=== PATIENT | female | born 1930 | race Caucasian/White ===

== ENCOUNTER 2017-07-09 20:50 | Inpatient (IN) | payer OTHER ==
[~2017-07-09] VITALS: Ht 154.9 cm; Wt 54.9 kg
--- NOTE | 2017-07-09 20:55 | NUR ---
PT BIBRA FROM SNF TO ER BED 13. PER REPORT, INTERMITTENT EPISTAXIS X 5 DAYS NOW. DRIED BLOOD TO L NARES NOTED W/ NO ACTIVE BLEEDING NOTED. GOWNED AND PLACED ON MONITOR. STABLE VITALS. AWAITING MD JOHNSON.
--- NOTE | 2017-07-09 21:04 | NUR ---
DR PARIS AT BEDSIDE FOR EVAL.
--- NOTE | 2017-07-09 21:10 | NUR ---
IV LINE STARTED BLOOD DRAWN AND SENT TO LAB.
[2017-07-09 21:25] LABS: BASOPHILS # (AUTO) 0.1 /CMM (0.0-0.2); EOSINOPHILS # (AUTO) 0.2 /CMM (0.0-0.7); EOSINOPHILS % (AUTO) 2.8 % (0.0-6.0); HEMATOCRIT 32 % (33-45); HEMOGLOBIN 10.8 g/dL (11.5-14.8); LYMPHOCYTES # (AUTO) 3.6 /CMM (0.8-4.8); LYMPHOCYTES % (AUTO) 42.6 % (20.0-44.0); MEAN CORPUSCULAR HEMOGLOBIN 28 PG (26.0-33.0); MEAN CORPUSCULAR HGB CONC 34 g/dl (31.0-36.0); MEAN CORPUSCULAR VOLUME 82 fL (82-100); MONOCYTES # (AUTO) 0.8 /CMM (0.1-1.30); MONOCYTES % (AUTO) 9.6 % (2.0-12.0); NEUTROPHILS # (AUTO) 3.8 /CMM (1.8-8.9); PLATELET COUNT (AUTO) 270 /CMM (150-450); RDW COEFFICIENT OF VARIATION 14.1 (11.5-15.0); WHITE BLOOD COUNT (AUTO) 8.4 K/uL (4.3-11.0)
[2017-07-09] MEDS ORDERED: PHENYLEPHRINE 0.5% NASAL SPRAY 15 ML BOTTLE NS ONE (21:25)
[2017-07-09] MEDS ORDERED: PHENYLEPHRINE HCL NASAL SPRAY 15 ML BOTTLE NS ONE (21:30)
[2017-07-09 21:33] LABS: CALCIUM, SERUM 8.8 mg/dL (8.5-10.1); CARBON DIOXIDE 27 mmol/L (21-32); CHLORIDE 104 mmol/L (98-107); CREATININE 0.8 mg/dL (0.6-1.3); GLUCOSE 97 mg/dL (74-106); POTASSIUM 4.4 mmol/L (3.5-5.1); SODIUM SERUM 138 mmol/L (136-145); UREA NITROGEN, BLOOD 41 mg/dL (7-18)
[2017-07-09 21:34] LABS: INR 0.95 (0.85-1.15)
[2017-07-09] MEDS ORDERED: LEVO112T7 PO (22:24)
[2017-07-09] MEDS ORDERED: ASPI-1169 PO (22:24)
[2017-07-09] MEDS ORDERED: MEMA5TAB PO (22:24)
[2017-07-09] MEDS ORDERED: CALC-261 PO (22:24)
[2017-07-09] MEDS ORDERED: DIVA125C PO (22:24)
[2017-07-09] MEDS ORDERED: AMIO200T2 PO (22:24)
[2017-07-09] MEDS ORDERED: MAGNESIUM HYDROXIDE 30 ML UDC PO PRN (22:30)
[2017-07-09] MEDS ORDERED: MAG HYDROX/AL HYDROX/SIMETH 30 ML UDC PO PRN (22:30)
[2017-07-09] MEDS ORDERED: ACETAMINOPHEN 325 MG TABLET PO PRN (22:30)
[2017-07-09] MEDS ORDERED: HYDROCODONE/APAP 5/325MG 1 EACH TABLET PO PRN (22:30)
[2017-07-09] MEDS ORDERED: ONDANSETRON HCL/PF 4 MG/2 ML VIAL IVP PRN (22:30)
--- NOTE | 2017-07-09 22:32 | NUR ---
REPORT GIVEN TO MIKA. PT AWAITING TRANSFER TO FLOOR.
[2017-07-09 22:50] VITALS: BP 150/65
[2017-07-09 23:00] VITALS: BP 150/65
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
[2017-07-10 06:57] LABS: CALCIUM, SERUM 8.3 mg/dL (8.5-10.1); CARBON DIOXIDE 26 mmol/L (21-32); CHLORIDE 107 mmol/L (98-107); CREATININE 0.7 mg/dL (0.6-1.3); GLUCOSE 91 mg/dL (74-106); MAGNESIUM 2.1 mg/dL (1.8-2.4); PHOSPHORUS 4.1 mg/dL (2.5-4.9); POTASSIUM 4.8 mmol/L (3.5-5.1); SODIUM SERUM 140 mmol/L (136-145); UREA NITROGEN, BLOOD 42 mg/dL (7-18)
[2017-07-10 06:59] LABS: BASOPHILS % (AUTO) 0.3 % (0.0-2.0); EOSINOPHILS # (AUTO) 0.4 /CMM (0.0-0.7); EOSINOPHILS % (AUTO) 4.8 % (0.0-6.0); HEMATOCRIT 29 % (33-45); HEMOGLOBIN 9.6 g/dL (11.5-14.8); LYMPHOCYTES # (AUTO) 3.4 /CMM (0.8-4.8); LYMPHOCYTES % (AUTO) 45.4 % (20.0-44.0); MEAN CORPUSCULAR HEMOGLOBIN 28 PG (26.0-33.0); MEAN CORPUSCULAR HGB CONC 33 g/dl (31.0-36.0); MEAN CORPUSCULAR VOLUME 85 fL (82-100); MONOCYTES # (AUTO) 0.7 /CMM (0.1-1.30); NEUTROPHILS % (AUTO) 40.5 % (43.0-81.0); RDW COEFFICIENT OF VARIATION 15.2 (11.5-15.0); RED BLOOD CELL COUNT(AUTO) 3.45 MIL/uL (4.0-5.2); WHITE BLOOD COUNT (AUTO) 7.5 K/uL (4.3-11.0)
[2017-07-10 07:06] LABS: CHOLESTEROL 109 mg/dL (<200); HDL CHOLESTEROL 45 mg/dL (40-60); LDL 53 mg/dL (0-99); THYROID STIMULATING HORMONE 10.848 uIU/mL (0.358-3.74); TRIGLYCERIDES 79 mg/dL (30-150)
--- NOTE | 2017-07-10 07:34 | NUR ---
MS VICE PRESIDENT INTEGRATED CLOSING NOTES PT SLEPT WELL AND STABLE SIMA THE NIGHT , NO SIGNS OF ANY BLEEDING NOTED. RESPIRATION EVEN AND NON-LABORED. KEPT HER WARM AND COMFORTABLE AT ALL TIMES. BED ALARM SET FOR SAFETY. PLACE CALL LIGHT AT REACH. ENDORSE TO AM NURSE FOR CONTINUITY OF CARE.
--- NOTE | 2017-07-10 07:36 | NUR ---
MS RN: INITIAL NOTE RECEIVED PT A/OX2-3. MACANESE SPEAKING ONLY. MS. INCONTINENT. USES DIAPER. SKIN INTACT. BEDREST. ON CARDIAC DIET. IV ON R #20 HL. SITE CLEAR AND PATENT. NO IV FLUIDS RUNNING. NO DISTRESS NOTED. NO SOB NOTED. NO PAIN NOTED. RESTING COMFORTABLY IN BED. CALL LIGHT WITHIN REACH.
[2017-07-10 08:00] VITALS: BP 120/54
[2017-07-10] MEDS: DIVALPROEX SODIUM 125 MG CAP.SPRINK PO SCH ×2 (08:22→16:45)
[2017-07-10] MEDS: LEVOTHYROXINE SODIUM 112 MCG TABLET PO SCH (08:22)
[2017-07-10] MEDS: MEMANTINE HCL 5 MG TABLET PO SCH (08:23)
[2017-07-10] MEDS: AMIODARONE HCL 200 MG TABLET PO SCH (08:23)
[2017-07-10 08:46] LABS: PLATELET COUNT (AUTO) 235 /CMM (150-450)
[2017-07-10 16:00] VITALS: BP 112/47
[2017-07-10 18:02] VITALS: BP 112/47
--- NOTE | 2017-07-10 18:12 | NUR ---
MS RN: CLOSING NOTE PT TOOK ALL MEDICATIONS ON TIME. NO ADVERSE REACTIONS NOTED. NO SOB NOTED. NO PAIN NOTED. NO DISTRESS NOTED. A/OX2-3. BHUTANESE SPEAKING. MS. NOSE BLEED ONE TIME. VERY MINIMUM. NO MORE BLEEDING OCCURRED THROUGH OUT THE DAY. INCONTINENT. USES DIAPER. SKIN INTACT. BEDREST. NOT ABLE TO AMBULATE DUE TO WEAKNESS. NEEDS FEEDER. R HAND #22 HL. SITE CLEAR AND PATENT. BED ALARM ON. RESTING COMFORTABLY IN BED. CALL LIGHT WITHIN REACH.
--- NOTE | 2017-07-10 19:20 | NUR ---
MS RN OPENING NOTE RECEIVED PATIENT IN BED RESTING COMFORTABLY, ALERT ORIENTED X 2. ON ROOM AIR. NO APPARENT SIGNS OF DISTRESS OR DISCOMFORT. RESPIRATIONS EVEN AND UNLABORED, DENIES PAIN AND SOB. RIGHT HAND HL 20G, FLASHED WITH SALINE, PATENT AND INTACT. PATIENT IS INCONTINENTS, USES DIAPER, KEPT CLEAN AND COMFORTABLE. PATIENT IS ON BED REST, SAFETY MEASURES IN PLACE; BED IN LOW LOCKED POSITION, SIDE RAILS UP X2, CALL LIGHT WITHIN EASY REACH. WILL CONTINUE TO MONITOR.
[2017-07-10 20:00] VITALS: BP 123/52
[2017-07-11 07:34] LABS: CALCIUM, SERUM 8.5 mg/dL (8.5-10.1); CARBON DIOXIDE 26 mmol/L (21-32); CHLORIDE 107 mmol/L (98-107); CREATININE 0.7 mg/dL (0.6-1.3); GLUCOSE 95 mg/dL (74-106); MAGNESIUM 2.2 mg/dL (1.8-2.4); PHOSPHORUS 4.1 mg/dL (2.5-4.9); POTASSIUM 4.5 mmol/L (3.5-5.1); SODIUM SERUM 140 mmol/L (136-145); UREA NITROGEN, BLOOD 29 mg/dL (7-18)
[2017-07-11 07:35] LABS: BASOPHILS % (AUTO) 0.6 % (0.0-2.0); EOSINOPHILS # (AUTO) 0.3 /CMM (0.0-0.7); EOSINOPHILS % (AUTO) 3.3 % (0.0-6.0); HEMATOCRIT 26 % (33-45); HEMOGLOBIN 8.7 g/dL (11.5-14.8); LYMPHOCYTES % (AUTO) 37.5 % (20.0-44.0); MEAN CORPUSCULAR HEMOGLOBIN 30 PG (26.0-33.0); MEAN CORPUSCULAR HGB CONC 34 g/dl (31.0-36.0); MEAN CORPUSCULAR VOLUME 88 fL (82-100); MONOCYTES # (AUTO) 0.9 /CMM (0.1-1.30); MONOCYTES % (AUTO) 11.1 % (2.0-12.0); NEUTROPHILS # (AUTO) 3.8 /CMM (1.8-8.9); NEUTROPHILS % (AUTO) 47.5 % (43.0-81.0); PLATELET COUNT (AUTO) 221 /CMM (150-450); RDW COEFFICIENT OF VARIATION 15.6 (11.5-15.0); WHITE BLOOD COUNT (AUTO) 8.1 K/uL (4.3-11.0)
--- NOTE | 2017-07-11 07:40 | NUR ---
RN NOTES: PATIENT RESTING IN BED. NONLABORED BREATHING NOTED ON ROOM AIR. PATIENT AOX1-2 WITH PERIODS OF CONFUSION. DENIES PAIN. NO FACIAL GRIMACING NOTED. NO NOSE BLEEDING. DENIES HEADACHE. IV SITE ON RIGHT HAND PATENT AND INTACT. BED IN LOWEST LOCKED POSITION. CALL LIGHT WITHIN REACH. WILL CONTINUE TO MONITOR
--- NOTE | 2017-07-11 07:44 | NUR ---
MS RN CLOSING NOTE PATIENT IN BED RESTING COMFORTABLY, ALERT ORIENTED X 2. ON ROOM AIR. NO APPARENT SIGNS OF DISTRESS OR DISCOMFORT. RESPIRATIONS EVEN AND UNLABORED, DENIES PAIN AND SOB. NO EPISODES OF EPISTAXIS DURING THE NIGHT. RIGHT HAND HL 20G, FLASHED WITH SALINE, PATENT AND INTACT. PATIENT IS INCONTINENTS, USES DIAPER, KEPT CLEAN AND COMFORTABLE. PATIENT IS ON BED REST, SAFETY MEASURES IN PLACE; BED IN LOW LOCKED POSITION, SIDE RAILS UP X2, CALL LIGHT WITHIN EASY REACH. WILL ENDORSE TO AM NURSE FOR CONTINUATION OF CARE.
[2017-07-11 08:00] VITALS: BP 108/50
[2017-07-11] MEDS: LEVOTHYROXINE SODIUM 112 MCG TABLET PO SCH (08:25)
[2017-07-11] MEDS: MEMANTINE HCL 5 MG TABLET PO SCH (08:26)
[2017-07-11] MEDS: DIVALPROEX SODIUM 125 MG CAP.SPRINK PO SCH (08:26)
[2017-07-11 08:28] VITALS: BP 108/50
[2017-07-11] MEDS: AMIODARONE HCL 200 MG TABLET PO SCH (08:28)
--- NOTE | 2017-07-11 13:20 | NUR ---
RN NOTES: PATIENT DISCHARGED TO [facility]. SPOKE TO SHABBIR ROMO [facility]. PATIENT EDUCATED ON EXISTCARE INSTUCTIONS, REINFORCEMENT NEEDED. SPOKE TO MANDO AND DAUGHTER, JONATHAN. AWARE THAT PATIENT TO BE DISCHARGED TO [facility] TODAY. PATIENT STABLE. NO SIGNS OF BLEEDING DURING SHIFT, NO SEIZURES NOTED. IV LINE REMOVED. ALL VALUABLES GIVEN TO PATIENT. VS WNL. PATIENT LEFT WITH AMBULANCE STABLE.
== END 2017-07-11 13:30 | DRG 115 ==
LOC: ER 20:53 → MED 22:35
DX: R04.0 Epistaxis (principal); D68.59 Other primary thrombophilia; F03.90 Unspecified dementia, unspecified severity, without behavioral disturbance, psychotic disturbance, mood disturbance, and anxiety; Z79.82 Long term (current) use of aspirin; D64.9 Anemia, unspecified; I48.91 Unspecified atrial fibrillation; R79.89 Other specified abnormal findings of blood chemistry; K81.9 Cholecystitis, unspecified
CPT/HCPCS: 36415; 80048-TC; 80061-TC; 83735-TC; 84100-TC; 84443-TC; 85025-TC; 85730-TC; 86850-TC; 87081-TC; A4606; J7030; J7040; Z7610

== ENCOUNTER 2018-05-05 10:54 | Inpatient (IN) | payer OTHER ==
[~2018-05-05] VITALS: Ht 152.4 cm; Wt 59.0 kg
[~2018-05-05 10:54] MED LIST: AMIO200T4 PO; ASPI-1169 PO; CALC-261 PO; DIVA125C2 PO; LEVO112T7 PO; MEMA5TAB PO
--- NOTE | 2018-05-05 10:54 | NUR ---
PT BIB PRIVATE AMBULANCE FROM [facility] C/O FOR CONGESTION AND INCREASED WBC. AAOX0, RESPIRATIONS EVEN AND UNLABORED, NAD, PT ON MONITOR, PENDING MD JOHNSON
[2018-05-05 11:26] LABS: BASOPHILS % (AUTO) 0.3 % (0.0-2.0); EOSINOPHILS % (AUTO) 0.1 % (0.0-6.0); HEMATOCRIT 29 % (33-45); HEMOGLOBIN 9.3 g/dL (11.5-14.8); LYMPHOCYTES # (AUTO) 1.3 /CMM (0.8-4.8); LYMPHOCYTES % (AUTO) 11.7 % (20.0-44.0); MEAN CORPUSCULAR HGB CONC 32 g/dl (31.0-36.0); MEAN CORPUSCULAR VOLUME 85 fL (82-100); MONOCYTES # (AUTO) 1.8 /CMM (0.1-1.30); MONOCYTES % (AUTO) 15.7 % (2.0-12.0); NEUTROPHILS # (AUTO) 8.1 /CMM (1.8-8.9); NEUTROPHILS % (AUTO) 72.2 % (43.0-81.0); PLATELET COUNT (AUTO) 419 /CMM (150-450); RED BLOOD CELL COUNT(AUTO) 3.43 MIL/uL (4.0-5.2); WHITE BLOOD COUNT (AUTO) 11.2 K/uL (4.3-11.0)
--- NOTE | 2018-05-05 11:27 | NUR ---
RT AT BEDSIDE FOR BREATHING TX
[2018-05-05] MEDS ORDERED: ALBUTEROL FS 2.5 MG/3 ML VIAL.NEB CONTNEB ONE (11:30)
--- NOTE | 2018-05-05 11:30 | NUR ---
BLOOD COLLECTED AND SENT TO LAB, NO URINE ORDER AT THIS TIME
[2018-05-05 11:48] LABS: ALANINE AMINOTRANSFERASE 22 U/L (12-78); ALBUMIN 1.7 g/dL (3.4-5.0); ALKALINE PHOSPHATASE 71 U/L (46-116); ASPARTATE AMINOTRANSFERASE 32 U/L (15-37); B-TYPE NATRIURETIC PEPTIDE 2742 PG/ML (0-125); BILIRUBIN,DIRECT 0.3 mg/dL (0.0-0.2); BILIRUBIN,TOTAL 0.5 mg/dL (0.2-1.0); CARBON DIOXIDE 27 mmol/L (21-32); CHLORIDE 114 mmol/L (98-107); CREATININE 0.8 mg/dL (0.6-1.3); GLUCOSE 214 mg/dL (74-106); POTASSIUM 3.6 mmol/L (3.5-5.1); SODIUM SERUM 149 mmol/L (136-145); UREA NITROGEN, BLOOD 27 mg/dL (7-18)
[2018-05-05 11:50] LABS: LYMPHOCYTES % (MANUAL) 10 % (16-48); MONOCYTES % (MANUAL) 11 % (0-11.0); NEUTROPHILS % (MANUAL) 79 (42-76)
[2018-05-05 12:00] VITALS: BP 123/60
[2018-05-05] MEDS ORDERED: ALBUTEROL FS 2.5 MG/3 ML VIAL.NEB ONE (12:00)
[2018-05-05] MEDS ORDERED: IPRA3AMP22 IH (12:09)
[2018-05-05] MEDS ORDERED: DONE10TA44 PO (12:09)
[2018-05-05] MEDS ORDERED: DEXT15DR6 EACHEYE (12:09)
[2018-05-05] MEDS ORDERED: MEMA10TA PO (12:09)
[2018-05-05] MEDS ORDERED: CRAN450C PO (12:09)
[2018-05-05] MEDS ORDERED: ACET325T53 PO (12:09)
[2018-05-05] MEDS ORDERED: OMEG1CAP18 PO (12:09)
[2018-05-05] MEDS ORDERED: MAG30ORA PO (12:09)
[2018-05-05] MEDS ORDERED: FERR325T23 PO (12:09)
--- NOTE | 2018-05-05 12:25 | NUR ---
CALLED [employer] STATIONARY ENGINEER APPRENTICE WAS PAGED.
--- NOTE | 2018-05-05 12:34 | NUR ---
REPORT GIVEN TO SHABBIR MTZ FOR FERMIN
--- NOTE | 2018-05-05 12:50 | NUR ---
RN NOTES PATIENT RECEIVED FROM ER DEPT, OPENS EYES, NON-VERBAL AT THIS TIME, CURRENTLY ON 4LPM VIA SIMPLE MASK, PATIENT NOTED WITH MILD SHORTNESS OF BREATH, KEPT COMFORTABLE, HEAD OF BED ELEVATED, NEEDS ATTENDED, CALL LIGHT WITHIN REACH, WILL CONTINUE TO MONITOR.
--- NOTE | 2018-05-05 12:56 | NUR ---
TRANSFERRED TO ROOM 310-1 VIA ACLS PROTOCOL.
[2018-05-05] MEDS ORDERED: Medication Not On Formulary EA (Ipratropium/Albuterol Sulfate (Ipratr-Albuterol 0.5-3 Mg IH PRN (13:30)
[2018-05-05] MEDS ORDERED: MAG HYDROX/AL HYDROX/SIMETH 30 ML UDC PO PRN ×2 (13:30→14:00)
--- NOTE | 2018-05-05 13:45 | NUR ---
RN NOTES SKIN ASSESSMENT COMPLETED, NOTED WITH OPEN SACRAL WOUND, PHOTO TAKEN AND PLACED IN CHART. APPLIED MEPILEX. PATIENT CURRENTLY ON O2 AT 5LPM VIA MASK, SPO2 92%, HOB ELEVATED. NEEDS ATTENDED, CALL LIGHT WITHIN REACH, WILL CONTINUE TO MONITOR.
[2018-05-05] MEDS ORDERED: ACETAMINOPHEN 325 MG TABLET PO PRN (14:00)
[2018-05-05] MEDS ORDERED: MAGNESIUM HYDROXIDE 30 ML UDC PO PRN (14:00)
[2018-05-05] MEDS ORDERED: ONDANSETRON HCL/PF 4 MG/2 ML VIAL IVP PRN (14:00)
[2018-05-05] MEDS: FUROSEMIDE 40 MG/4 ML VIAL IV SCH (14:04)
[2018-05-05] MEDS: POLYVINYL ALCOHOL 15 ML BOTTLE EACHEYE SCH ×3 (14:04→20:33)
--- NOTE | 2018-05-05 15:53 | NUR ---
RN NOTES PATIENT'S TELE MONITOR SHOWS AFIB 100-120S. DR. SILVA MADE AWARE. BP 113/55 P 110 R 24 SPO2 88-90% ON 6LPM VIA MASK. WAITING FOR MD ORDER.
[2018-05-05 16:00] VITALS: BP 106/56
--- NOTE | 2018-05-05 16:00 | NUR ---
tele/rn opening notes RECEIVED PATIENT, UNAROUSABLE, NON VERBAL, UNABLE TO RESPOND WITH VOICE AND LIGHT TOUCH, ON OXYGEN MASK AT 6L WITH OXYGENATION BETWEEN 88 TO 92 AND AFIB WITH SR TO ST READING. UNABLE TO SWALLOW, ASPIRATIONS PRECAUTIONS
--- NOTE | 2018-05-05 16:28 | NUR ---
RN NOTES RECEIVED NO NEW ORDER FROM DR. SILVA. PATIENT ENDORSED TO EDDIE SHEA FOR CONTINUITY OF CARE.
[2018-05-05] MEDS: DIVALPROEX SODIUM 125 MG CAP.SPRINK PO SCH (17:00)
[2018-05-05] MEDS: LEVOTHYROXINE SODIUM 112 MCG TABLET PO SCH (17:30)
[2018-05-05] MEDS ORDERED: Medication Not On Formulary EA (Memantine Hcl (Namenda) 10 MG) PO SCH (18:00)
--- NOTE | 2018-05-05 18:07 | NUR ---
TELE/RN NOTES MD SILVA WAS MADE AWARE WITH ORDER FOR STAT ABG
[2018-05-05 18:32] LABS: ABG BASE EXCESS 4.6 mmol/L; ABG OXYGEN SATURATION 89.7 % (92.0-98.5); ABG PCO2 34.4 mmHg (35.0-45.0); ABG PO2 52.9 mmHg (75.0-100.0); AaDO2 250.5 mmHg; COHb 0.3 % (0.5-1.5); MetHb 0.6 % (0.0-1.5); O2Hb 88.9 % (94.0-97.0); SITE, ABG Right Radial; VENT MODE, BG Simple Mask
--- NOTE | 2018-05-05 18:51 | NUR ---
TELE/RN NOTES ABG RESULT RELAYED WITH MD SILVA WITH ORDER TO KEEP PATIETN NPO AT THIS TIME AND FOR ST EVAL ORDER. MD ALVAREZ CARRIED OUT.
[2018-05-05 20:00] VITALS: BP 130/53
[2018-05-05] MEDS: Z GUARD REMEDY 2 OZ OINT TP PRN ×2 (20:35→20:36)
[2018-05-05] MEDS: Z GUARD REMEDY 2 OZ OINT TP SCH (20:37)
[2018-05-05] MEDS: DONEPEZIL 5 MG TABLET PO SCH (21:21)
[2018-05-06] VITALS (7 sets, daily range): BP systolic 112–129; BP diastolic 47–76
--- NOTE | 2018-05-06 04:16 | NUR ---
tele/rn notes PATIENT TELE SR AT 70, PN OXYGEN MASK AT 15 L, O2 SAT AT 95%
--- NOTE | 2018-05-06 04:45 | NUR ---
RT NOTE PT SUCTIONED, O2 SAT IS 95% BACK ON OXYGEN. RN IS AWARE.
[2018-05-06 06:27] LABS: BASOPHILS % (AUTO) 0.4 % (0.0-2.0); EOSINOPHILS % (AUTO) 0.3 % (0.0-6.0); HEMATOCRIT 34 % (33-45); HEMOGLOBIN 10.8 g/dL (11.5-14.8); LYMPHOCYTES # (AUTO) 0.9 /CMM (0.8-4.8); LYMPHOCYTES % (AUTO) 8.3 % (20.0-44.0); MEAN CORPUSCULAR HGB CONC 32 g/dl (31.0-36.0); MEAN CORPUSCULAR VOLUME 85 fL (82-100); MONOCYTES # (AUTO) 1.7 /CMM (0.1-1.30); MONOCYTES % (AUTO) 15.7 % (2.0-12.0); NEUTROPHILS # (AUTO) 8.3 /CMM (1.8-8.9); NEUTROPHILS % (AUTO) 75.3 % (43.0-81.0); PLATELET COUNT (AUTO) 450 /CMM (150-450); WHITE BLOOD COUNT (AUTO) 11.1 K/uL (4.3-11.0)
[2018-05-06 06:50] LABS: CALCIUM, SERUM 8.5 mg/dL (8.5-10.1); CARBON DIOXIDE 30 mmol/L (21-32); CHLORIDE 114 mmol/L (98-107); CREATININE 0.7 mg/dL (0.6-1.3); GLUCOSE 119 mg/dL (74-106); MAGNESIUM 2.5 mg/dL (1.8-2.4); PHOSPHORUS 3.6 mg/dL (2.5-4.9); POTASSIUM 3.5 mmol/L (3.5-5.1); SODIUM SERUM 153 mmol/L (136-145); UREA NITROGEN, BLOOD 24 mg/dL (7-18)
--- NOTE | 2018-05-06 07:01 | NUR ---
310-1 TELE/RN NOTES PATIETN ABLE TO OPEN EYED, WEAK BUT AROUSABLE TO TOUCH, ON OXYGEN FACE MASK 15L,, SKIN WARM TO TOUCH , SINUS RTHYM AT 70, WILL MONITOR. WILL ENDORSE TO AM RN FOR FERMIN.
[2018-05-06] MEDS ORDERED: FUROSEMIDE 40 MG/4 ML VIAL IV SCH (08:00)
[2018-05-06 08:45] LABS: IRON, SERUM 15 ug/dl (50-175); TOTAL IRON BINDING CAPACITY 133 ug/dl (250-450)
[2018-05-06] MEDS: Z GUARD REMEDY 2 OZ OINT TP SCH ×2 (09:00→23:52)
[2018-05-06] MEDS ORDERED: Medication Not On Formulary EA (Cranberry Fruit Concentrate (Cranberry) 450 MG) PO SCH (09:00)
[2018-05-06 09:02] LABS: CHOLESTEROL 94 mg/dL (<200); FERRITIN 368 ng/mL (8-388); HDL CHOLESTEROL 22 mg/dL (40-60); LDL 54 mg/dL (0-99); THYROID STIMULATING HORMONE 0.119 uIU/mL (0.358-3.74); TRIGLYCERIDES 78 mg/dL (30-150)
[2018-05-06] MEDS: FUROSEMIDE 40 MG/4 ML VIAL IV SCH (09:17)
[2018-05-06] MEDS: ASPIRIN 81 MG TAB.CHEW PO SCH (09:19)
[2018-05-06] MEDS: DIVALPROEX SODIUM 125 MG CAP.SPRINK PO SCH ×2 (09:19→17:00)
[2018-05-06] MEDS: AMIODARONE HCL 200 MG TABLET PO SCH (09:20)
[2018-05-06] MEDS: MEMANTINE HCL 5 MG TABLET PO SCH (09:20)
[2018-05-06] MEDS: FERROUS SULFATE (325 MG) 325 MG/TAB TABLET PO SCH (09:20)
[2018-05-06] MEDS: LEVOTHYROXINE SODIUM 112 MCG TABLET PO SCH (09:21)
[2018-05-06] MEDS: POLYVINYL ALCOHOL 15 ML BOTTLE EACHEYE SCH ×4 (09:31→23:50)
[2018-05-06] MEDS: Z GUARD REMEDY 2 OZ OINT TP PRN ×2 (09:32→23:50)
[2018-05-06] MEDS ORDERED: IV D5W 1,000 ML IV PRN (13:00)
--- NOTE | 2018-05-06 16:00 | NUR ---
PT HAS FEVER 101.3 .MADE AWARE
--- NOTE | 2018-05-06 16:30 | NUR ---
ORDER FOR BLOOD CULTURE X2 PER .
[2018-05-06] MEDS: CALCIUM CARB 250MG /VITAMIN D 1 UDTAB PO SCH (18:00)
--- NOTE | 2018-05-06 19:30 | NUR ---
PT IN BED.PATIETN ABLE TO OPEN EYED, WEAK, AROUSABLE TO TOUCH, ON OXYGEN FACE MASK 15L,, O2 SUTURATION 95-97%.SKIN WARM TO TOUCH , SINUS RTHYM AT 71, WILL ENDORSE TO NEXT SHIFT FOR FERMIN..
--- NOTE | 2018-05-06 19:35 | NUR ---
Patient resides at [facility] [phone]. She has hx of dementia and requires assistance with adl's. She is bed and chair bound at the SNF. Plan to dc back to SNF when discharge. Addendum: 05/06/18 at 1935 by JAVON BARRAZA RN Amended: Links added.
[2018-05-06] MEDS: ACETAMINOPHEN 650 MG/SUPP.RECT RC PRN (21:19)
--- NOTE | 2018-05-06 21:31 | NUR ---
MS/RN TEMP 102.3, OBTAINED ORDER FOR TYLENOL SUPP AND ADMINISTERED. COOLING MEASURES STARTED. WILL MONITOR.
[2018-05-06] MEDS: DONEPEZIL 5 MG TABLET PO SCH (22:00)
[2018-05-07] VITALS (12 sets, daily range): BP systolic 100–120; BP diastolic 42–69
--- NOTE | 2018-05-07 06:58 | NUR ---
MS/RN PATIENT IS SLEEPING, APPEAR COMFORTABLE, NO SIGNS OF DISTRESS NOTED, BREATHING EVEN AND UNLABORED, CALL LIGHT IN REACH. ALL NEEDS ATTENDED AT THIS TIME, WILL CONTINUE TO MONITOR.
[2018-05-07 07:07] LABS: BASOPHILS # (AUTO) 0.1 /CMM (0.0-0.2); BASOPHILS % (AUTO) 0.4 % (0.0-2.0); HEMATOCRIT 33 % (33-45); HEMOGLOBIN 10.6 g/dL (11.5-14.8); LYMPHOCYTES # (AUTO) 1.3 /CMM (0.8-4.8); LYMPHOCYTES % (AUTO) 9.2 % (20.0-44.0); MEAN CORPUSCULAR HGB CONC 32 g/dl (31.0-36.0); MEAN CORPUSCULAR VOLUME 84 fL (82-100); MONOCYTES # (AUTO) 2.1 /CMM (0.1-1.30); MONOCYTES % (AUTO) 14.7 % (2.0-12.0); NEUTROPHILS % (AUTO) 75.7 % (43.0-81.0); PLATELET COUNT (AUTO) 481 /CMM (150-450); RED BLOOD CELL COUNT(AUTO) 3.95 MIL/uL (4.0-5.2); WHITE BLOOD COUNT (AUTO) 14.5 K/uL (4.3-11.0)
[2018-05-07 07:10] LABS: ALANINE AMINOTRANSFERASE 22 U/L (12-78); ALBUMIN 1.7 g/dL (3.4-5.0); ALKALINE PHOSPHATASE 78 U/L (46-116); ASPARTATE AMINOTRANSFERASE 40 U/L (15-37); BILIRUBIN,TOTAL 0.6 mg/dL (0.2-1.0); CALCIUM, SERUM 8.5 mg/dL (8.5-10.1); CARBON DIOXIDE 31 mmol/L (21-32); CHLORIDE 112 mmol/L (98-107); GLUCOSE 147 mg/dL (74-106); MAGNESIUM 2.4 mg/dL (1.8-2.4); PHOSPHORUS 4.1 mg/dL (2.5-4.9); POTASSIUM 3.2 mmol/L (3.5-5.1); SODIUM SERUM 151 mmol/L (136-145); TOTAL PROTEIN, SERUM 8.1 g/dL (6.4-8.2); UREA NITROGEN, BLOOD 43 mg/dL (7-18)
[2018-05-07] MEDS ORDERED: LEVOTHYROXINE SODIUM 75 MCG TABLET PO SCH (07:30)
--- NOTE | 2018-05-07 07:47 | NUR ---
certified novell engineer Opening Note Patient is currently asleep, resting in bed but easily arousable to name. Alert and oriented x 1, able to make eye contact in response to name. On venereal disease investigator, sinus rhythm at 70 bpm. Patient non-verbal, no signs or symptoms of distress, shortness of breath or pain at this time. Respirations even and unlabored, saturating on 6 L oxygen via simple mask. Peripheral IV to the left hand 20 gauge, intact, patent and running D5W at 50 ml/hr. Patient currently NPO diagnosis per swallow evaluation. Safety and Fall precautions in place: bed in lowest and locked position, side rails up x2, call light and personal possessions within reach. Patient updated on safety measures and current plan of care. Will continue to monitor and intervene as needed. Addendum: 05/07/18 at 1608 by ANDRZEJ CM RN Peripheral IV to the left hand 18 gauge, intact, patent and running D5W at 50 ml/hr. Peripheral IV to the right hand 20 gauge, intact, patent and saline locked.
[2018-05-07] MEDS: POLYVINYL ALCOHOL 15 ML BOTTLE EACHEYE SCH ×4 (08:53→21:17)
[2018-05-07] MEDS: FUROSEMIDE 40 MG/4 ML VIAL IV SCH (08:54)
[2018-05-07] MEDS ORDERED: PIPERACILLIN /TAZOBACTAM 3.375 G in IV D5W 100 ML IV SCH (09:00)
[2018-05-07] MEDS: AMIODARONE HCL 200 MG TABLET PO SCH (09:00)
[2018-05-07] MEDS: FERROUS SULFATE (325 MG) 325 MG/TAB TABLET PO SCH (09:00)
[2018-05-07] MEDS: ASPIRIN 81 MG TAB.CHEW PO SCH (09:00)
[2018-05-07] MEDS: POTASSIUM CHLORIDE 20 MEQ TAB.PRT.SR PO SCH ×2 (09:00→10:00)
[2018-05-07] MEDS: DIVALPROEX SODIUM 125 MG CAP.SPRINK PO SCH ×2 (09:00→17:00)
[2018-05-07] MEDS: MEMANTINE HCL 5 MG TABLET PO SCH (09:00)
[2018-05-07] MEDS: Z GUARD REMEDY 2 OZ OINT TP PRN ×2 (09:13→09:39)
[2018-05-07] MEDS: HYDROGEL DRESSING 90 GM TUBE TP SCH (09:39)
[2018-05-07] MEDS: Z GUARD REMEDY 2 OZ OINT TP SCH ×2 (09:40→21:18)
--- NOTE | 2018-05-07 10:01 | NUR ---
RT NT SX YELLOW THICK MODERATE YELLOW PINK TINGE SECRETIONS. NO COMPLICATIONS WILL CONT TO MONITOR
--- NOTE | 2018-05-07 10:45 | NUR ---
MS RN Note Patient saturating 85-88% on 6 L simple mask continuous SpO2 monitoring in place, HR tachycardia at [address] Butler paged for orders, request stat ABGs due to decline in respiratory status.
--- NOTE | 2018-05-07 12:30 | NUR ---
MS RN Note Dr. Butler paged again for STAT ABG order. Patient saturating at 88% on 10 L non-rebreather mask, continuous SpO2 monitoring in place, HR tachycardia at 116-127 bpm. Will continue to monitor.
--- NOTE | 2018-05-07 13:30 | NUR ---
MS RN Note Order received from Dr. Luke reyes for STAT arterial blood gas. Patient saturating at 88% on 10 L non-rebreather mask, continuous SpO2 monitoring in place, HR tachycardia at 116-127 bpm. RT paged for STAT order.
--- NOTE | 2018-05-07 14:30 | NUR ---
MS RN Note Dr. Alvares at bedside, results of STAT ABG given to him. Patient saturating at 88-90% on 10 L non-rebreather mask; HR [address] Alvares, transfer patient to ICU stat for hypoxemic respiratory failure secondary to left lower lobe atelectasis-healthcare associated pneumonia with secretion retention. Additionally, electrolyte abnormalities. Will notify nursing network control operators supervisor.
--- NOTE | 2018-05-07 14:35 | NUR ---
MS RN Note Awaiting bed assignment for ICU.
[2018-05-07] MEDS: Potassium Chloride 40 MEQ in IV D5W 1,000 ML IV PRN (14:54)
--- NOTE | 2018-05-07 15:00 | NUR ---
MS RN Note Notified of bed assignment in ICU, room 252. Call down, unit ready to receive patient, SHABBIR Montes De Oca to receive patient. Family notified of transfer.
--- NOTE | 2018-05-07 15:30 | NUR ---
PATIENT TRANSFERRED FROM [facility] FOR RESPIRATORY DISTRESS. PATIENT APPEARS LETHARGIS, DOES NOT FOLLOW SIMPLE COMMANDS BUT ABLE TO TRACK SPEAKER. ON 100 % NRBM WITH SPO2 94%. LUNG SOUNDS RALES THROUGHOUT. KEPT HOB ELEVATED. SR 80'S ON MONITOR. SBP >100. TEMP-99.7. PATIENT NOTED INCONTINENT WITH SACRAL DECUB-GEE CATHETER INSERTED WITH CLEAR YELLOW URINE RETURN. SAMPLE COLLECTED-SENT TO LAB. WOUND CARE DONE. DR. PATRICK IN UNIT.
--- NOTE | 2018-05-07 16:08 | NUR ---
MS fall intern Note Patient transferred via bed to ICU, on fagot maker: tachycardia at 119 bpm. Patient is currently asleep, resting in bed but easily arousable to name. Alert and oriented x 1, able to make eye contact in response to name. Primarily Hebrew speaking. On fagot maker, sinus tachycardia at 119 bpm. Patient non-verbal, no signs or symptoms of distress, shortness of breath or pain at this time. Respirations even and unlabored, saturating on 10 L oxygen via non-rebreather mask. Peripheral IV to the left hand 18 gauge, intact, patent and running 40 mEq of K+ in D5W at 70 ml/hr. Peripheral IV to the right hand 20 gauge, intact, patent and saline locked. Patient currently NPO diagnosis per swallow evaluation. Report given to TIRE CHANGER AIRCRAFTFalguni for continuity of care.
[2018-05-07 16:40] LABS: ABG BASE EXCESS 4.8 mmol/L; ABG OXYGEN SATURATION 92.4 % (92.0-98.5); ABG PCO2 42.3 mmHg (35.0-45.0); ABG PH 7.456 (7.350-7.450); ABG PO2 64.8 mmHg (75.0-100.0); AaDO2 461.2 mmHg; COHb 0.1 % (0.5-1.5); MetHb 0.4 % (0.0-1.5); O2Hb 91.9 % (94.0-97.0); SITE, ABG Right Radial
[2018-05-07] MEDS: ACETYLCYSTEINE 10% SOLN 400 MG/4 ML VIAL NEB SCH ×2 (16:54→23:12)
--- NOTE | 2018-05-07 16:54 | NUR ---
RT 1530 HHN TX MISSED, UNABLE TO GIVE AT THIS TIME. NO RESPIRATORY DISTRESS OR SOB NOTED AT THIS TIME.
[2018-05-07] MEDS ORDERED: PIPERACILLIN /TAZOBACTAM 2.25 G in IV NS 0.9% 50 ML IV SCH (17:00)
[2018-05-07] MEDS: PIPERACILLIN /TAZOBACTAM 2.25 G in IV D5W 50 ML IV SCH (17:24)
[2018-05-07] MEDS: CALCIUM CARB 250MG /VITAMIN D 1 UDTAB PO SCH (18:00)
--- NOTE | 2018-05-07 19:00 | NUR ---
RN CLOSING NOTES NO SIGNIFICANT CHANGE NOTED. 02 SAT 96%, RR 26. HOB ELEVATED. NO SOB NOTED. KEPT CLEAN AND DRY. REPOSITIONED. ENDORSED FOR CONTINUITY OF CARE
[2018-05-07] MEDS: DONEPEZIL 5 MG TABLET PO SCH (21:18)
[2018-05-08] VITALS (33 sets, daily range): BP systolic 84–140; BP diastolic 35–77
[2018-05-08] MEDS: PIPERACILLIN /TAZOBACTAM 2.25 G in IV D5W 50 ML IV SCH ×2 (00:27→09:13)
--- NOTE | 2018-05-08 07:26 | NUR ---
MUSIC SOUND LIGHT TECHNICIAN NOTE PT REMAINED STABLE DURING SHIFT. NO ACUTE DISTRESS NOTED. REMAINED ON NONREBREATHER AND SATURATING 99%. HOB MAINTAINED ELEVATED AND ON ASPIRATION PRECAUTIONS. DEEP SUCTIONED NEEDED. REPOSITIONED Q2H. WILL ENDORSE TO NEXT SHIFT FOR CONTINUITY OF CARE.
--- NOTE | 2018-05-08 07:30 | NUR ---
COOK NIGHT OPENING NOTE RECEIVED REPORT FROM FRANK RN.PATIENT IN BED ,OPEN YES,NOT FOLLOWING ANY COMMANDS.ON O2 10L VIA MASK.NO SOB NO DISTRESS NOTED AT THIS TIME.ON TEL MONITOR SR WITH HR 74.ON IVF D5W WITH KCL @70CC/HR.IV SITE ON R HAND #20.INTACT AND PATENT.GEE CATH DRAINING DARK YELLOW URINE.BED IS LOW AND IN LOCKED POSITION.CALL LIGHT IN REACH.SRX3.WILL CONTINUE TO MONITOR.
[2018-05-08] MEDS: ALBUTEROL FS 2.5 MG/3 ML VIAL.NEB NEB PRN ×2 (07:52→15:15)
[2018-05-08] MEDS: IPRATROPIUM NEB FS 0.5 MG/2.5 ML AMPUL.NEB NEB PRN ×2 (07:52→15:15)
[2018-05-08] MEDS: ACETYLCYSTEINE 10% SOLN 400 MG/4 ML VIAL NEB SCH ×2 (07:52→15:14)
[2018-05-08 08:58] LABS: BASOPHILS # (AUTO) 0.1 /CMM (0.0-0.2); BASOPHILS % (AUTO) 0.4 % (0.0-2.0); EOSINOPHILS % (AUTO) 0.4 % (0.0-6.0); HEMATOCRIT 34 % (33-45); HEMOGLOBIN 10.8 g/dL (11.5-14.8); LYMPHOCYTES # (AUTO) 1.4 /CMM (0.8-4.8); LYMPHOCYTES % (AUTO) 9.9 % (20.0-44.0); MEAN CORPUSCULAR HGB CONC 32 g/dl (31.0-36.0); MEAN CORPUSCULAR VOLUME 85 fL (82-100); MONOCYTES # (AUTO) 1.4 /CMM (0.1-1.30); MONOCYTES % (AUTO) 9.8 % (2.0-12.0); NEUTROPHILS # (AUTO) 11.5 /CMM (1.8-8.9); NEUTROPHILS % (AUTO) 79.5 % (43.0-81.0); PLATELET COUNT (AUTO) 418 /CMM (150-450); RED BLOOD CELL COUNT(AUTO) 4.02 MIL/uL (4.0-5.2); WHITE BLOOD COUNT (AUTO) 14.5 K/uL (4.3-11.0)
[2018-05-08] MEDS: ASPIRIN 81 MG TAB.CHEW PO SCH (09:00)
[2018-05-08] MEDS: AMIODARONE HCL 200 MG TABLET PO SCH (09:00)
[2018-05-08] MEDS: POLYVINYL ALCOHOL 15 ML BOTTLE EACHEYE SCH ×4 (09:10→21:26)
--- NOTE | 2018-05-08 09:10 | NUR ---
RN CASE MANAGER HOSPICE NOTE SEEN BY ,UPDATED ABOUT PATIENT CONDITION.WILL CONTINUE TO MONITOR,
[2018-05-08 09:12] LABS: CALCIUM, SERUM 8.4 mg/dL (8.5-10.1); CARBON DIOXIDE 32 mmol/L (21-32); CHLORIDE 109 mmol/L (98-107); CREATININE 0.9 mg/dL (0.6-1.3); GLUCOSE 161 mg/dL (74-106); POTASSIUM 3.5 mmol/L (3.5-5.1); SODIUM SERUM 148 mmol/L (136-145); UREA NITROGEN, BLOOD 41 mg/dL (7-18)
[2018-05-08] MEDS: Z GUARD REMEDY 2 OZ OINT TP SCH ×2 (09:12→21:27)
[2018-05-08] MEDS: HYDROGEL DRESSING 90 GM TUBE TP SCH (09:12)
--- NOTE | 2018-05-08 09:15 | NUR ---
AIRDROP SYSTEMS TECHNICIAN NOTE PO MEDICATIONS NOT ADMINISTERED BECAUSE PATIENT FAILED SWALLOW EVAL . MADE AWARE.CHANGED DEPAKOTE TO IV DEPAKENE OK WITH PHARMACY BECAUSE PATIENT CAN'T TOLERATE PO MEDS..
[2018-05-08 09:18] LABS: ALANINE AMINOTRANSFERASE 18 U/L (12-78); ALBUMIN 1.6 g/dL (3.4-5.0); ALKALINE PHOSPHATASE 73 U/L (46-116); ASPARTATE AMINOTRANSFERASE 31 U/L (15-37); BILIRUBIN,TOTAL 0.5 mg/dL (0.2-1.0); MAGNESIUM 2.4 mg/dL (1.8-2.4); PHOSPHORUS 3.2 mg/dL (2.5-4.9)
[2018-05-08 09:22] LABS: APPEARANCE,URINE SL CLOUDY (CLEAR); BILIRUBIN,URINE NEGATIVE (NEGATIVE); BLOOD, URINE NEGATIVE Ery/uL (NEGATIVE); COLOR,URINE YELLOW (YELLOW); KETONES,URINE NEGATIVE (NEGATIVE); LEUKOCYTE ESTERASE ,URINE TRACE (NEGATIVE); NITRITE, URINE POSITIVE (NEGATIVE); PROTEIN,URINE NEGATIVE (NEGATIVE); UGLUCOSE NEGATIVE (NEGATIVE)
[2018-05-08 09:36] LABS: CREATININE, URINE 54.5 MG/DL (30.0-125.0)
[2018-05-08] MEDS: VALPROATE 250 MG in IV D5W 100 ML IV SCH ×2 (09:57→20:24)
[2018-05-08] MEDS: FUROSEMIDE 40 MG/4 ML VIAL IV SCH (10:45)
[2018-05-08 10:49] LABS: EOSINOPHIL,URINE None Seen
[2018-05-08 10:51] LABS: BACTERIA,URINE Many /HPF (None Seen); RBC,URINE 0-2 /HPF (0-2); SQUAMOUS EPITHELIAL CELL,UR Few /HPF (None Seen)
[2018-05-08] MEDS: Potassium Chloride 40 MEQ in IV D5W 1,000 ML IV PRN (11:52)
--- NOTE | 2018-05-08 12:56 | NUR ---
OPERATIONS ASST NOTE SPOKE TO DAUGHTER ,EXPLAINED REASON THAT CALLED .SPOKE TO GRAND DAUGHTER MEAGAN FOR BETTER UNDERSTANDING,FAMILY AGREED WITH NG TUBE PLACEMENT ,THEN WANT TO DO ANOTHER SWALLOW EVAL ONCE PATIENT STABLE .FAMILY DONT WANT TO HAVE PEG PLACEMENT NOW.
--- NOTE | 2018-05-08 14:00 | NUR ---
PULVERIZER OPERATOR NOTE SPOKE TO DIETITIAN ABOUT DIETARY CONSULT.SHE SAID SHE WILL LOOK AT PATIENT PROFILE AND LET US KNOW.
--- NOTE | 2018-05-08 15:00 | NUR ---
PROOF CARRIER NOTE GOT MESSAGE FROM CREW DIRECTOR TO CHECK ORDER FROM DIETION.UNABLE TO FIND ANY NEW ORDERS.CALL BACK LEFT MESSAGE.WAITING FRO CALLBACK.
[2018-05-08] MEDS: SOD FERRIC GLUC 125 MG in IV NS 0.9% 100 ML IV SCH (15:24)
[2018-05-08] MEDS: ACETAMINOPHEN 650 MG/SUPP.RECT RC PRN (17:20)
--- NOTE | 2018-05-08 17:22 | NUR ---
RT NOTE: RT CALLED TO PATIENT'S ROOM DUE TO LOW SPO2=85%. PATIENT PLACED ON A NON-REBREATHER MASK AT 15 LPM. PATIENT WAS NT SUCTIONED TO OBTAIN LARGE AMOUNTS OF THICK BAZAN/BLOODY SECRETIONS. SP02 INCREASED TO 95%. NURSE AWARE.
[2018-05-08] MEDS: CALCIUM CARB 250MG /VITAMIN D 1 UDTAB PO SCH (17:23)
--- NOTE | 2018-05-08 17:30 | NUR ---
CALCULUS PROFESSOR NOTE PATIENT STARTED DESATURATING ON 10L MASK@85%.DEEP SUCTIONING DONE BY RT.PLACED ON NON REBREATHER.SATURATING WELL @9498%.WILL CONTINUE TO MONITOR.
[2018-05-08] MEDS: PIPERACILLIN /TAZOBACTAM 3.375 G in IV D5W 100 ML IV SCH (18:32)
--- NOTE | 2018-05-08 19:26 | NUR ---
RIB KNITTER CLOSING NOTE PATIENT IN BED ,LETHARGIC,RESPONDS TO TOUCH.NOT FOLLOWING ANY COMMANDS.ON O2 VIA NON REBREATHER MASK.NO SOB NO DISTRESS NOTED AT THIS TIME.ON TEL MONITOR SR WITH HR 71.ON IVF D5W WITH KCL @70CC/HR.IV SITE ON R HAND #20.L HAND #20.INTACT AND PATENT. MADE AWARE ABOUT THAT PATIENT NOT ON ANY DVT PROPHYLAXIS.OK FOR SCD.GEE CATH DRAINING CLEAR,YELLOW URINE.BED IS LOW AND IN LOCKED POSITION.CALL LIGHT IN REACH.SRX3.ENDORSED TO PM NURSE FOR FERMIN.
--- NOTE | 2018-05-08 20:20 | NUR ---
ICU/ENDOSCOPY TECHNICAN PT WAS DEEP SUCTIONED DUE TO SATURATION BEING IN THE HIGH 80'S WITH 15 LITERS NRB MASK AT 15 LITERS. PT TOLERATED THIS WELL. WILL CONTINUE TO MONITOR THIS PT.
--- NOTE | 2018-05-08 20:30 | NUR ---
ICU/MORTGAGE LOAN OFFICER ORIGINATOR PT'S BP HAS BEEN LOW SINCE THE START OF THE SHIFT, NOTIFIED THE CHARGE NURSE WHO THEN NOTIFIED THE DR EMPLOYEE HEALTH RN WHO THEN ORDERED PRN LEVO FOR THIS.
[2018-05-08] MEDS ORDERED: NOREPINEPHRINE 4 MG/4 ML AMPUL IV ONE (20:42)
--- NOTE | 2018-05-08 20:50 | NUR ---
ICU/MANAGER PLUMBING GRANDDAUGHTER OF PT WHO APPEARS TO HAVE SOME MEDICAL BACKGROUND ASKED ABOUT PT'S CONDITION AND ANY UPDATES. THIS WAS PROVIDED TO HER. ALSO TOLD HER THAT BP WAS LOW AND THAT AN ORDER WAS OBTAINED FOR LEVO PRN. GRANDDAUGHTER WANTED TO START ALBUMIN INSTEAD TO GET BP UP, VS LEVO. AND QUESTIONED WHY THIS WAS NOT ATTEMPTED FIRST. GRANDDAUGHTER WAS PERSISTENT IN ATTEMPTING THE ALBUMIN FIRST SINCE THERE WAS MIDLINE TO RUN LEVO ON. CALL WAS PLACED TO MD DIRECTOR OF VIDEO ANALYTICS TO TRY TO OBTAIN AN ORDER FOR ALBUMIN FIRST THE LEVO SECOND IF NOT SUCCESSFUL BRINGING UP BP.
[2018-05-08] MEDS ORDERED: NOREPINEPHRINE 8 MG in IV D5W 500 ML IV PRN (21:00)
[2018-05-08] MEDS: DONEPEZIL 5 MG TABLET PO SCH (21:26)
--- NOTE | 2018-05-08 21:44 | NUR ---
ICU/TRANSPLANT REGISTERED NURSE MACHINE BANDER AND CELLOPHANER DR WAS CALLED TO ADDRESS THE ISSUE OF GIVING ALBUMIN INSTEAD OF STARTING LEVO, PER GRANDDAUGHTER WHO APPEARS TO HAVE SOME MEDICAL BACKGROUND. DR GIVENS CALLED AND SAID THAT THE PT APPEARS TO BE HAVING A VOLUME ISSUE, DUE TO THE LASIX THAT WAS GIVEN TO TRY TO CORRECT THE CHF THAT IS SHOWN UP ON THE PT'S XRAY OVER THE PAST FEW DAYS, GIVEN THE ADMITTING DX OF CHF. DR GIVENS SAID THAT THE MEDICATION OF LEVO IS THE CORRECT ACTION TO TAKE WITH THIS PARTICULAR PT AND THAT IN THE MORNING WILL ADDRESS THIS WITH DR ESCAMILLA. AND THAT A LOW DOSE OF LEVO AT 1 MCG IS OK TO GIVEN THROUGH A PERIPHERAL LINE.
[2018-05-09] VITALS (95 sets, daily range): BP systolic 72–164; BP diastolic 32–75
[2018-05-09] MEDS: IPRATROPIUM NEB FS 0.5 MG/2.5 ML AMPUL.NEB NEB PRN (00:09)
[2018-05-09] MEDS: ALBUTEROL FS 2.5 MG/3 ML VIAL.NEB NEB PRN (00:09)
[2018-05-09] MEDS: ACETYLCYSTEINE 10% SOLN 400 MG/4 ML VIAL NEB SCH ×3 (00:09→15:49)
[2018-05-09] MEDS: PIPERACILLIN /TAZOBACTAM 3.375 G in IV D5W 100 ML IV SCH ×3 (00:12→16:23)
--- NOTE | 2018-05-09 00:25 | NUR ---
ICU/MONITORING COORDINATOR MIDLINE PLACED ON THE PT WITH STERILE FIELD, GOOD BLOOD RETURN.
--- NOTE | 2018-05-09 00:40 | NUR ---
ICU/PUMP ERECTOR HELPER PT'S SATURATION IS LOW 80'S WITH GOOD WAVE FORM. NOTIFIED CHARGE NURSE ABOUT THIS. PT WAS SUCTIONED A FEW TIMES, GOT THICK MUCUS PLUG. SATURATION CAME UP TO 87. CHARGE NURSE ORDERED STAT ABG
--- NOTE | 2018-05-09 01:20 | NUR ---
ICU/SANDBLAST OR SHOTBLAST EQUIPMENT TENDER PT'S ABG IS NOT VERY GOOD, WITH A PO2 OF 32.1, PULSE OX2 READING 64.8, WAS CALLED REGARDING RESULTS. WAITING FOR CALL BACK.
[2018-05-09 01:21] LABS: ABG BASE EXCESS 5.9 mmol/L; ABG OXYGEN SATURATION 64.8 % (92.0-98.5); ABG PCO2 40.1 mmHg (35.0-45.0); ABG PH 7.488 (7.350-7.450); ABG PO2 32.1 mmHg (75.0-100.0); AaDO2 640.8 mmHg; COHb 0.3 % (0.5-1.5); MetHb 0.5 % (0.0-1.5); O2Hb 64.3 % (94.0-97.0); SITE, ABG Right Brachial
[2018-05-09] MEDS ORDERED: PROPOFOL 100 ML IV PRN ×2 (02:30→03:00)
--- NOTE | 2018-05-09 02:40 | NUR ---
ICU/HEALTH CENTER ASSOCIATE ER MD CAME UP INTUBATED PT WITH THICK SECRETIONS, CHEST XRAY WAS DONE STAT FOR ETT TUNE PLACEMENT. PT IS 21 AT THE LIP LINE A/C-16, 450, 100, PEEP 5. CURRENT SATURATION IS NOW 98% FROM 70'S. SEDATION WAS STARTED WELL RESTRAINTS PLACED ON PT FOR SAFETY AND RISK TO PT. AT THIS TIME THE GRANDDAUGHTER WAS CALLED TO NOTIFY HER ABOUT INTUBATION. SHE ASKED WHY COULDN'T THE PT DO WELL ON BIPAP, HOWEVER PT'S SECRETIONS ARE EXTREMELY THICK AND WITH THE AIR AND FORCE, BIPAP WOULDN'T LIKELY WORK OUT WELL IN THIS SITUATION. THEN ASKED WHY ISN'T THE PT GOING TO BE BRONCH. EXPLAINED TO FAMILY THAT EVERYTHING WAS BEING DONE FOR PT.
--- NOTE | 2018-05-09 02:44 | NUR ---
PT was intubated due to desaturation and respiratory distress, per DR DYER INITIAL VENT SETTINGS ARE AC 16, VT 450, 100%, PEEP 5. ventilator is plugged into red outlet, alarms are set and audible, ambu bag at bedside. Addendum: 05/09/18 at 0246 by CONCHA GILES RT Amended: Links added.
--- NOTE | 2018-05-09 03:33 | NUR ---
ICU/SPECIAL EDUCATION SUPERINTENDENT PT'S LEVO WAS TURNED OFF DUE TO B/P BEING ELEVATED. ALSO SEDATION INCREASED TO 30MCG FROM WHEN WAS STARTED, WAS INCREASED 5 MCG EVERY 5 MINUTES.
[2018-05-09] MEDS: Potassium Chloride 40 MEQ in IV D5W 1,000 ML IV PRN (04:15)
[2018-05-09 04:23] LABS: ABG BASE EXCESS 2.8 mmol/L; ABG OXYGEN SATURATION 96.9 % (92.0-98.5); ABG PCO2 41.4 mmHg (35.0-45.0); ABG PH 7.436 (7.350-7.450); ABG PO2 99.3 mmHg (75.0-100.0); AaDO2 572.3 mmHg; COHb 0.3 % (0.5-1.5); MetHb 0.6 % (0.0-1.5); SITE, ABG Right Brachial
--- NOTE | 2018-05-09 04:50 | NUR ---
ICU/SENIOR SCRUM MASTER ABG POST 1 HR DONE, WAS GIVEN TO CHARGE NURSE. NO NEED TO CALL MD TO CHANGE VENT SETTINGS.WILL CONTINUE TO MONITOR THIS PT.
[2018-05-09 04:52] LABS: BASOPHILS % (AUTO) 0.1 % (0.0-2.0); EOSINOPHILS % (AUTO) 0.4 % (0.0-6.0); HEMATOCRIT 32 % (33-45); LYMPHOCYTES # (AUTO) 1.3 /CMM (0.8-4.8); LYMPHOCYTES % (AUTO) 7.5 % (20.0-44.0); MEAN CORPUSCULAR HGB CONC 32 g/dl (31.0-36.0); MEAN CORPUSCULAR VOLUME 85 fL (82-100); MONOCYTES # (AUTO) 1.1 /CMM (0.1-1.30); MONOCYTES % (AUTO) 6.4 % (2.0-12.0); NEUTROPHILS # (AUTO) 15.3 /CMM (1.8-8.9); NEUTROPHILS % (AUTO) 85.6 % (43.0-81.0); PLATELET COUNT (AUTO) 452 /CMM (150-450); RED BLOOD CELL COUNT(AUTO) 3.75 MIL/uL (4.0-5.2); WHITE BLOOD COUNT (AUTO) 17.8 K/uL (4.3-11.0)
[2018-05-09 05:13] LABS: ALANINE AMINOTRANSFERASE 19 U/L (12-78); ALBUMIN 1.5 g/dL (3.4-5.0); ALKALINE PHOSPHATASE 77 U/L (46-116); ASPARTATE AMINOTRANSFERASE 32 U/L (15-37); BILIRUBIN,TOTAL 0.6 mg/dL (0.2-1.0); CARBON DIOXIDE 33 mmol/L (21-32); CHLORIDE 104 mmol/L (98-107); CREATININE 0.9 mg/dL (0.6-1.3); GLUCOSE 195 mg/dL (74-106); MAGNESIUM 2.1 mg/dL (1.8-2.4); PHOSPHORUS 3.5 mg/dL (2.5-4.9); POTASSIUM 3.5 mmol/L (3.5-5.1); SODIUM SERUM 143 mmol/L (136-145); TOTAL PROTEIN, SERUM 7.6 g/dL (6.4-8.2); UREA NITROGEN, BLOOD 30 mg/dL (7-18)
--- NOTE | 2018-05-09 07:15 | NUR ---
RECEIVED CARE OF PATIENT FROM [facility]. PATIENT WAS INTUBATED EARLY THIS AM S/T INCREASED SOB, 15L NRB SATURATION LOWEST IN THE 70'S. 7.5 AND TOLERATING VENT SETTINGS AT THIS TIME. SEDATED ON DIPRIVAN; SEE SPREADSHEET. IVF PER MD ORDER. PATIENT WAS BRIEFLY ON LEVO LAST NIGHT PRIOR TO INTUBATION. PER DARWIN PATIENT REQUIRING FREQUENT SUCTIONING S/T THICK SECRETIONS. TELE SR/SB; ON AMIO HCL FOR AFIB HX. PATIENT NOTED WITH SKIN PROBLEMS THAT ARE BEING TREATED BY PLASTICS. GEE CATH IN PLACE DRAINING TO GRAVITY; LAST NIGHT AROUND 300ML. R NARE NG TUBE CLAMPED; WILL F/U ON TUBE FEEDING ORDERS. SAFETY, SKIN, ASPIRATION PRECAUTIONS IN PLACE AND WILL MONITOR
[2018-05-09] MEDS: FUROSEMIDE 40 MG/4 ML VIAL IV SCH ×4 (08:37→19:10)
[2018-05-09] MEDS: ASPIRIN 81 MG TAB.CHEW PO SCH (08:37)
[2018-05-09] MEDS: AMIODARONE HCL 200 MG TABLET PO SCH (08:37)
[2018-05-09] MEDS: POLYVINYL ALCOHOL 15 ML BOTTLE EACHEYE SCH ×4 (08:47→21:33)
[2018-05-09] MEDS: HYDROGEL DRESSING 90 GM TUBE TP SCH (08:48)
[2018-05-09] MEDS: Z GUARD REMEDY 2 OZ OINT TP SCH ×2 (08:48→21:34)
[2018-05-09] MEDS ORDERED: ROCURONIUM BROMIDE 50 MG/5 ML IV ONE (08:58)
[2018-05-09] MEDS ORDERED: ETOMIDATE 2 MG/ML VIAL IV ONE (08:58)
[2018-05-09] MEDS: VALPROATE 250 MG in IV D5W 100 ML IV SCH ×2 (09:24→21:33)
--- NOTE | 2018-05-09 09:30 | NUR ---
CONTINUING TO HOLD DIPRIVAN PATIENT IS RESTING COMFORTABLY. FAMILY AT BEDSIDE. NO S/S DISTRESS OR PAIN NOTED.
--- NOTE | 2018-05-09 09:45 | NUR ---
DR SILVA AT BEDSIDE SPEAKING WITH MEAGAN Rodriguez-DAUGHTER AND UPDATING ON CARE PLAN. PER MD OK TO START TUBE FEEDING PER DIETARY. JECITY 1.2 GOAL OF 60ML/HOUR
--- NOTE | 2018-05-09 10:00 | NUR ---
PER DR SILVA DISCUSSION WITH FAMILY. PATIENT IS TO BE DNR.
[2018-05-09] MEDS: ACETAMINOPHEN 325 MG TABLET PO PRN ×2 (10:33→18:14)
--- NOTE | 2018-05-09 10:46 | NUR ---
DR ESCAMILLA AT BEDSIDE. UPDATED ON PATIENT CONDITION. VS.
[2018-05-09] MEDS ORDERED: PHENYLEPHRINE 20 MG in IV D5W 250 ML IV PRN ×4 (11:00)
[2018-05-09] MEDS: JEVITY 1.2 CAL 1,000 ML BOTTLE GT PRN (11:11)
[2018-05-09] MEDS: SOD FERRIC GLUC 125 MG in IV NS 0.9% 100 ML IV SCH (13:44)
--- NOTE | 2018-05-09 15:00 | NUR ---
PATIENT HOT AND DIAPHORETIC. BS CHECKED. AXILLARY TEMP 99.3. GAVE PATIENT COOL BED BATH. CORE TEMP MONITORING 99.1
[2018-05-09] MEDS: Z GUARD REMEDY 2 OZ OINT TP PRN (15:53)
[2018-05-09] MEDS ORDERED: PHENYLEPHRINE 80 MG in IV NS 0.9% 250 ML IV PRN (17:00)
[2018-05-09] MEDS: CALCIUM CARB 250MG /VITAMIN D 1 UDTAB PO SCH (17:18)
[2018-05-09] MEDS ORDERED: PHENYLEPHRINE 40 MG in IV D5W 250 ML IV PRN (17:30)
--- NOTE | 2018-05-09 19:14 | NUR ---
ALL DUE MEDS GIVEN AND ALL NEEDS MET. PATIENT FEBRILE TEMP MAX 101.2. AT THIS TIME 100.1 WITH COOLING MEASURES INITIATED. TOLERATING VENT SETTINGS. NO SEDATION. PATIENT COMFORTABLE AND RESTING WELL. ARRON RUNNING PER DR ESCAMILLA ORDER TO KEEP SBP 100. GEE INTACT AND DRAINING TO GRAVITY WITH 450ML OUTPUT TODAY S/P LASIX X3 DOSE. SCD'S IN PLACE. SAFETY, ASPIRATION, AND SKIN PRECAUTIONS IN PLACE. PER FAMILY PATIENT DNR. CARE ENDORSED TO JAVON CHRISTENSEN.
--- NOTE | 2018-05-09 19:20 | NUR ---
RN NOTES RECEIVED PT AWAKE ON BED CALM AND COOPERATIVE. ORALLY INTUBATED WITH ETT 7.5 AND 21 CM AT LIP. NO ACUTE RESPIRATORY DISTRESS. S ATURATION 99%. NO SEDATION. SINUS PRISCILLA ON MONITOR HR 50'S. TEMP 100 DEG. COOLING MEASURES PROVIDED. WITH NGTF JEVITY 1.2 @ 30 ML.HR INTACT, PATENCY CHECKED. IV SITE ON MARIELLA MIDLINE INTACT AND PATENT RUNNING WITH NEOSYNEPHRINE @ 40 MCG/MIN. VSS AT THIS TIME. NO FACIAL COMPLAINED OF PAIN. KEPT PT CLEAN AND DRY WILL WILL CLOSELY MONITOR.
[2018-05-09] MEDS: DONEPEZIL 5 MG TABLET PO SCH (21:33)
[2018-05-10] VITALS (104 sets, daily range): BP systolic 85–146; BP diastolic 30–71
[2018-05-10] MEDS: ACETYLCYSTEINE 10% SOLN 400 MG/4 ML VIAL NEB SCH ×4 (00:10→23:16)
[2018-05-10] MEDS: PIPERACILLIN /TAZOBACTAM 3.375 G in IV D5W 100 ML IV SCH ×3 (00:21→16:50)
[2018-05-10 04:30] LABS: BASOPHILS # (AUTO) 0.1 /CMM (0.0-0.2); BASOPHILS % (AUTO) 0.3 % (0.0-2.0); HEMATOCRIT 29 % (33-45); HEMOGLOBIN 9.3 g/dL (11.5-14.8); LYMPHOCYTES # (AUTO) 1.8 /CMM (0.8-4.8); LYMPHOCYTES % (AUTO) 6.3 % (20.0-44.0); MEAN CORPUSCULAR HGB CONC 32 g/dl (31.0-36.0); MEAN CORPUSCULAR VOLUME 83 fL (82-100); MONOCYTES # (AUTO) 2.1 /CMM (0.1-1.30); MONOCYTES % (AUTO) 7.7 % (2.0-12.0); NEUTROPHILS # (AUTO) 23.6 /CMM (1.8-8.9); NEUTROPHILS % (AUTO) 84.7 % (43.0-81.0); PLATELET COUNT (AUTO) 427 /CMM (150-450); RED BLOOD CELL COUNT(AUTO) 3.53 MIL/uL (4.0-5.2); WHITE BLOOD COUNT (AUTO) 27.8 K/uL (4.3-11.0)
[2018-05-10 04:53] LABS: ALANINE AMINOTRANSFERASE 12 U/L (12-78); ALKALINE PHOSPHATASE 79 U/L (46-116); ASPARTATE AMINOTRANSFERASE 18 U/L (15-37); BILIRUBIN,TOTAL 0.4 mg/dL (0.2-1.0); CALCIUM, SERUM 7.7 mg/dL (8.5-10.1); CARBON DIOXIDE 30 mmol/L (21-32); CHLORIDE 99 mmol/L (98-107); CREATININE 0.9 mg/dL (0.6-1.3); GLUCOSE 170 mg/dL (74-106); MAGNESIUM 1.8 mg/dL (1.8-2.4); PHOSPHORUS 3.2 mg/dL (2.5-4.9); SODIUM SERUM 138 mmol/L (136-145); UREA NITROGEN, BLOOD 25 mg/dL (7-18)
[2018-05-10 04:57] LABS: ALBUMIN 1.4 g/dL (3.4-5.0)
--- NOTE | 2018-05-10 06:59 | NUR ---
RN NOTES PATIENT REMAINED THE SAME. NO SIGNIFICANT CHANGE THROUGHOUT THE SHIFT. ETT AND VENT SETTING TOLERATED WELL. DUE MEDICINE ADMINISTERED ORDERED. NGTF MATT. CHANGED RATE TO 40 ML./HR AND O RESIDUAL. CONTINUE ON NEOSYNEPHRINE TITRATED ORDERED. IV SITE INTACT AND PATENT. F/C DRAINED WITH YELLOW COLOR URINE. ENDORSED CONTINUITY OF CARE TO AM NURSE.
[2018-05-10] MEDS: POTASSIUM CHLORIDE 20 MEQ POWDER PACKET GT SCH ×3 (08:05→09:24)
[2018-05-10] MEDS: POLYVINYL ALCOHOL 15 ML BOTTLE EACHEYE SCH ×4 (08:06→20:52)
[2018-05-10] MEDS: ASPIRIN 81 MG TAB.CHEW PO SCH (08:06)
[2018-05-10] MEDS: AMIODARONE HCL 200 MG TABLET PO SCH (08:06)
[2018-05-10] MEDS: HYDROGEL DRESSING 90 GM TUBE TP SCH (08:07)
[2018-05-10] MEDS: Z GUARD REMEDY 2 OZ OINT TP SCH ×2 (08:07→20:53)
[2018-05-10] MEDS ORDERED: POTASSIUM CL. PREMIX PERIPHER. 50 ML IV SCH (08:30)
[2018-05-10 09:19] LABS: ABG BASE EXCESS 4.3 mmol/L; ABG OXYGEN SATURATION 93.5 % (92.0-98.5); ABG PCO2 35.9 mmHg (35.0-45.0); ABG PH 7.503 (7.350-7.450); ABG PO2 64.4 mmHg (75.0-100.0); AaDO2 179.5 mmHg; COHb 0.3 % (0.5-1.5); MetHb 0.6 % (0.0-1.5); O2Hb 92.7 % (94.0-97.0); PEEP,BG 5 cm H2O; SITE, ABG Right Radial; VENT MODE, BG AC 16 450 40%
[2018-05-10] MEDS: VALPROATE 250 MG in IV D5W 100 ML IV SCH ×2 (09:24→20:52)
--- NOTE | 2018-05-10 09:57 | NUR ---
RN NOTE 0720: Received patient awake, able to follow commands. Calm at this time. With ETT to vent, tolerated settings well. No respiratory distress noted at this time. With right NGT intact, feeding tolerated, no residuals. Kept HOB elevated. On 40mL/hr, will increment as ordered. SB 56 on the monitor, will hold Amio. MARIELLA mL intact, on Keith @ 35, will titrate as ordered. Diallo cath intact, noted with moderate amount of alise colored urine drained to BSD. DURAL MECHANIC restraints on for safety. 0900: S/E by Dr. Alvares, no new order at this time. 0950: No any significant changes noted. Kept clean, warm and dry. Needs attended. No ASE from ATB therapy.
[2018-05-10] MEDS: SOD FERRIC GLUC 125 MG in IV NS 0.9% 100 ML IV SCH (15:11)
[2018-05-10] MEDS: ACETAMINOPHEN 325 MG TABLET PO PRN (16:49)
[2018-05-10] MEDS: CALCIUM CARB 250MG /VITAMIN D 1 UDTAB PO SCH (17:39)
[2018-05-10] MEDS: JEVITY 1.2 CAL 1,000 ML BOTTLE GT PRN (17:51)
[2018-05-10] MEDS ORDERED: FEE PK DOSING 1 MIN EA MC ONE (18:58)
--- NOTE | 2018-05-10 19:00 | NUR ---
RN NOTE No any significant changes noted at this time. Kept clean, warm and dry. Needs attended. Remained off pressors.GT feeding tolerated.
--- NOTE | 2018-05-10 19:30 | NUR ---
RN NOTES PT IS AWAKE ON BED ORALLY INTUBATED CALM AND COOPERATIVE WITH ETT 7.5 AND 21 CM AT LIP SATURATION >95% NO ACUTE RESPIRATORY DISTRESS. SUCTION WITH THICK MODERATE SECRETION. BILATERAL LUG SOUND DIMINISHED. OFF FROM SEDATION. NSR ON TELE MONITOR. WITH NGTF JEVITY 1.2 @ 50 ML/HR INTACT, PATENCY CHECKED. NO N/D/V. IV SITE ON MARIELLA MIDLINE INTACT AND PATENT VSS. NURSING MEASURES PROVIDED KEPT PT CLEAN AND COMFORTABLE IN BED. REPOSITIONED FOR COMFORTABLE.
[2018-05-10] MEDS ORDERED: VANCOMYCIN 1 GM in IV D5W 250ml IV SCH (20:00)
[2018-05-10] MEDS: VANCOMYCIN 1 GM in IV D5W 250ml IV SCH (20:52)
[2018-05-10] MEDS: DONEPEZIL 5 MG TABLET PO SCH (21:00)
--- NOTE | 2018-05-10 21:53 | NUR ---
RECEIVED PT INTUBATED ON VENT. 7.5 ETT SECURED AT 21CM AT THE LIP. PT AWAKE NO DISTRESS. PT TOLERATING VENT SETTINGS. SX'D FOR SML AMT OF THIN WHITE SECRETIONS. VENT ALARMS SET AND AUDIBLE. AMBU BAG AT BEDSIDE. WILL CONTINUE TO MONITOR. Addendum: 05/10/18 at 2154 by AMARILIS LAM RT Amended: Links added.
[2018-05-11] VITALS (63 sets, daily range): BP systolic 94–136; BP diastolic 33–60
[2018-05-11] MEDS: PIPERACILLIN /TAZOBACTAM 3.375 G in IV D5W 100 ML IV SCH ×3 (01:14→17:05)
[2018-05-11 04:47] LABS: EOSINOPHILS % (AUTO) 1.6 % (0.0-6.0); HEMATOCRIT 28 % (33-45); HEMOGLOBIN 8.8 g/dL (11.5-14.8); LYMPHOCYTES % (AUTO) 4.6 % (20.0-44.0); MEAN CORPUSCULAR HGB CONC 32 g/dl (31.0-36.0); MEAN CORPUSCULAR VOLUME 83 fL (82-100); MONOCYTES # (AUTO) 1.7 /CMM (0.1-1.30); NEUTROPHILS # (AUTO) 18.8 /CMM (1.8-8.9); NEUTROPHILS % (AUTO) 85.8 % (43.0-81.0); PLATELET COUNT (AUTO) 372 /CMM (150-450); RED BLOOD CELL COUNT(AUTO) 3.31 MIL/uL (4.0-5.2); WHITE BLOOD COUNT (AUTO) 21.9 K/uL (4.3-11.0)
[2018-05-11 05:01] LABS: CALCIUM, SERUM 7.7 mg/dL (8.5-10.1); CARBON DIOXIDE 31 mmol/L (21-32); CHLORIDE 100 mmol/L (98-107); CREATININE 0.8 mg/dL (0.6-1.3); GLUCOSE 240 mg/dL (74-106); MAGNESIUM 2.1 mg/dL (1.8-2.4); PHOSPHORUS 2.3 mg/dL (2.5-4.9); SODIUM SERUM 136 mmol/L (136-145); UREA NITROGEN, BLOOD 22 mg/dL (7-18)
--- NOTE | 2018-05-11 07:22 | NUR ---
RN NOTES PATIENT REMAINED IN STABLE CONDITION. VSS WITHOUT PRESSORS. AFEBRILE. NO SIGNIFICANT CHANGES THROUGHOUT THE SHIFT. ETT AND VENT SETTING TOLERATED WELL WITHOUT ACUTE RESPIRATORY DISTRESS. INCONTINENT CARE RENDERED. F.C REMAINED INTACT. NGTF TOLERATED. NEGATIVE FOR NAUSEA, VOMITING AND DIARRHEA. BED BATH DONE KEPT PT CLEAN AND DRY. ENDORSED CONTINUITY OF CARE TO AM NURSE.
[2018-05-11] MEDS: ACETYLCYSTEINE 10% SOLN 400 MG/4 ML VIAL NEB SCH ×3 (07:53→23:21)
[2018-05-11] MEDS: POLYVINYL ALCOHOL 15 ML BOTTLE EACHEYE SCH ×4 (08:20→21:32)
[2018-05-11] MEDS: AMIODARONE HCL 200 MG TABLET PO SCH (08:24)
[2018-05-11] MEDS: ASPIRIN 81 MG TAB.CHEW PO SCH (08:24)
[2018-05-11] MEDS: VALPROATE 250 MG in IV D5W 100 ML IV SCH ×2 (08:24→21:31)
[2018-05-11] MEDS: HYDROGEL DRESSING 90 GM TUBE TP SCH (08:25)
[2018-05-11] MEDS: Z GUARD REMEDY 2 OZ OINT TP SCH ×2 (08:25→21:00)
[2018-05-11 09:43] LABS: ABG OXYGEN SATURATION 96.5 % (92.0-98.5); ABG PCO2 40.2 mmHg (35.0-45.0); ABG PH 7.513 (7.350-7.450); ABG PO2 85.4 mmHg (75.0-100.0); AaDO2 225.9 mmHg; COHb 0.3 % (0.5-1.5); MetHb 0.2 % (0.0-1.5); SITE, ABG Right Radial
[2018-05-11] MEDS ORDERED: NEUTRA PHOS 1 POWD.PACKET NG ONE (10:00)
--- NOTE | 2018-05-11 10:50 | NUR ---
RN NOTE 0720: Received patient awake, able to follow commands. Calm at this time. With ETT to vent, tolerated settings well. No respiratory distress noted at this time. With right NGT intact, feeding tolerated, no residuals. Kept HOB elevated. SB 56 on the monitor, will hold Amio. MARIELLA mL intact. Diallo cath intact, noted with moderate amount of alise colored urine drained to BSD. CREDIT UNION FIELD EXAMINER restraints on for safety. 0900: S/E by Dr. Alvares, no new order at this time. 1050: No any significant changes noted. Kept clean, warm and dry. Needs attended. No ASE from ATB therapy.
[2018-05-11] MEDS: SOD FERRIC GLUC 125 MG in IV NS 0.9% 100 ML IV SCH (13:31)
[2018-05-11] MEDS: CALCIUM CARB 250MG /VITAMIN D 1 UDTAB PO SCH (17:03)
[2018-05-11] MEDS: JEVITY 1.2 CAL 1,000 ML BOTTLE GT PRN (17:57)
--- NOTE | 2018-05-11 18:48 | NUR ---
RN NOTE No any significant changes noted. Kept clean, warm and dry. Needs attended. Kareen visited and updated re: the patient.
--- NOTE | 2018-05-11 19:30 | NUR ---
SCHOOL PSYCHOLOGIST RCD PT W/DX CHF; PT IS ALERT CURRENTLY OFF SEDATION ON BL SOF WRIST RESTRAINTS. INTUBATED 7.5 @ 22 W/VENT SETTINGS AC 16 400 405 +5; PT HAS THICK WHITE SECRETIONS. SB ON MONITOR. BP WNL. R NARE NG TUBE WITH JEVITY 1.2 @ 60 ML/HR; 5 ML RESIDUAL NOTED. SACRAL SKIN TEAR WITH MEPILEX IN PLACE. MARIELLA MIDLINE PATENT.
[2018-05-11] MEDS: VANCOMYCIN 1 GM in IV D5W 250ml IV SCH (21:31)
[2018-05-11] MEDS: Z GUARD REMEDY 2 OZ OINT TP PRN (21:32)
[2018-05-11] MEDS: DONEPEZIL 5 MG TABLET PO SCH (21:32)
[2018-05-12] VITALS (38 sets, daily range): BP systolic 90–134; BP diastolic 35–79
--- NOTE | 2018-05-12 | NUR ---
FOREST PATROLMAN PT TURNED AND REPOSITIONED Q2HRS; PROVIDED ORAL CARE Q2HRS. PT CONTINUES TO HAVE LARGE AMOUNTS OF WHITE THICK SECRETIONS.
[2018-05-12] MEDS: PIPERACILLIN /TAZOBACTAM 3.375 G in IV D5W 100 ML IV SCH ×3 (01:00→16:30)
--- NOTE | 2018-05-12 03:00 | NUR ---
SENIOR HEALTH CONSULTANT PT GIVEN COMPLETE BED BATH AND LINEN CHANGE RENDERED. PT HAD SOFT BROWN BOWEL MOVEMENT.
[2018-05-12 05:27] LABS: BASOPHILS % (AUTO) 0.1 % (0.0-2.0); EOSINOPHILS % (AUTO) 2.9 % (0.0-6.0); HEMATOCRIT 25 % (33-45); HEMOGLOBIN 8.2 g/dL (11.5-14.8); LYMPHOCYTES # (AUTO) 1.1 /CMM (0.8-4.8); LYMPHOCYTES % (AUTO) 8.4 % (20.0-44.0); MEAN CORPUSCULAR HGB CONC 33 g/dl (31.0-36.0); MEAN CORPUSCULAR VOLUME 83 fL (82-100); MONOCYTES # (AUTO) 1.2 /CMM (0.1-1.30); MONOCYTES % (AUTO) 8.8 % (2.0-12.0); NEUTROPHILS # (AUTO) 10.5 /CMM (1.8-8.9); NEUTROPHILS % (AUTO) 79.8 % (43.0-81.0); PLATELET COUNT (AUTO) 357 /CMM (150-450); RED BLOOD CELL COUNT(AUTO) 3.03 MIL/uL (4.0-5.2); WHITE BLOOD COUNT (AUTO) 13.1 K/uL (4.3-11.0)
[2018-05-12 05:44] LABS: CALCIUM, SERUM 7.2 mg/dL (8.5-10.1); CARBON DIOXIDE 32 mmol/L (21-32); CHLORIDE 99 mmol/L (98-107); CREATININE 0.8 mg/dL (0.6-1.3); GLUCOSE 284 mg/dL (74-106); PHOSPHORUS 2.2 mg/dL (2.5-4.9); POTASSIUM 3.9 mmol/L (3.5-5.1); SODIUM SERUM 136 mmol/L (136-145); UREA NITROGEN, BLOOD 14 mg/dL (7-18)
[2018-05-12 06:20] LABS: BAND % (MANUAL) 2 % (0.0-5.0); EOSINOPHILS % (MANUAL) 4 % (0-4); LYMPHOCYTES % (MANUAL) 9 % (16-48); METAMYELOCYTES % 1 % (0-0); MONOCYTES % (MANUAL) 8 % (0-11.0); MYELOCYTES % 1 % (0-0); NEUTROPHILS % (MANUAL) 75 (42-76)
--- NOTE | 2018-05-12 06:33 | NUR ---
BALANCE WHEEL SCREW HOLE DRILLER PT VSS REMAINED STABLE. PROVIDED FREQUENT SUCTIONING AND REPOSITIONING.
--- NOTE | 2018-05-12 07:15 | NUR ---
RN INITIAL NOTES RECEIVED PT INTUBATED, ON VENT. HOB ELEVATED. NO SOB NOTED. NO SIGNS OF PAIN NOTED. PT OPEN EYES. DOESN'T FOLLOW COMMANDS. NGT IN PLACE. TOLERATING GTF. NO RESIDUAL NOTED. MARIELLA MIDLINE IN PLACE. FC IN PLACE. NO HEMATURIA NOTED. BLE ELEVATED. PT REPOSITIONED. WILL MONITOR.
[2018-05-12] MEDS: ACETYLCYSTEINE 10% SOLN 400 MG/4 ML VIAL NEB SCH ×3 (07:27→23:49)
[2018-05-12] MEDS: ASPIRIN 81 MG TAB.CHEW PO SCH (08:11)
[2018-05-12] MEDS: VALPROATE 250 MG in IV D5W 100 ML IV SCH (08:11)
[2018-05-12] MEDS: POLYVINYL ALCOHOL 15 ML BOTTLE EACHEYE SCH ×4 (08:12→21:38)
[2018-05-12] MEDS: AMIODARONE HCL 200 MG TABLET PO SCH (08:12)
[2018-05-12] MEDS: Z GUARD REMEDY 2 OZ OINT TP SCH ×2 (08:13→21:38)
[2018-05-12] MEDS: HYDROGEL DRESSING 90 GM TUBE TP SCH (08:13)
[2018-05-12] MEDS: LACTOBACILLUS RHAMNOSUS GG 1 EACH CAP.SPRINK PO SCH ×2 (09:22→16:30)
--- NOTE | 2018-05-12 09:30 | NUR ---
RN NOTES 899 SEEN AND EXAMINED BY DR PATRICK. MD REVIEWED CURRENT LAB VALUES AND CXR RESULT. WILL ADVANCE ETT BY 3CM. DISCUSSED PLAN OF CARE WITH FAMILY AT BEDSIDE. WILL MONITOR. 929 SEEN AND EXAMINED BY DR ESCAMILLA. AWARE OF PT'S STATUS, LAB VALUES AND IMAGING. PT'S VS WNL. WILL CONTINUE TO MONITOR
--- NOTE | 2018-05-12 10:18 | NUR ---
SW received a call from pt's RN Maye in regards to family member requesting a verification of admission letter for their employer. NATHALIE met with pts' granddaughter Jailene [employer] [facility] and discussed the request. SW typed letter and gave it to Jailene for her employer.
--- NOTE | 2018-05-12 11:00 | NUR ---
RN NOTES SEEN AND EXAMINED BY DR MAKENZIE MCHUGH. MD REVIEWED CURRENT LAB VALUES AND CXR RESULT. PT OPEN EYES, UNABLE TO FOLLOW COMMANDS. PT REMAINS INTUBATED, TOLERATING VENT WELL. WILL CONTINUE TO MONITOR.
--- NOTE | 2018-05-12 11:02 | NUR ---
RT PER DR PATRICK ORDER ETT ADVANCED TO 23CM AT THE LIP. VENT ALARMS CHECKED + AUDIBLE. AMBU BAG AT HOB Addendum: 05/12/18 at 1103 by GISSELL MCKENZIE RT Amended: Links added.
[2018-05-12] MEDS: JEVITY 1.2 CAL 1,000 ML BOTTLE GT PRN (13:25)
[2018-05-12] MEDS ORDERED: NEUTRA PHOS 1 POWD.PACKET PO ONE (13:30)
[2018-05-12] MEDS: SOD FERRIC GLUC 125 MG in IV NS 0.9% 100 ML IV SCH (13:41)
[2018-05-12] MEDS: CALCIUM CARB 250MG /VITAMIN D 1 UDTAB PO SCH (17:14)
--- NOTE | 2018-05-12 18:26 | NUR ---
RN CLOSING NOTES NO SIGNIFICANT CHANGE NOTED. REMAINS INTUBATED, TOLERATING VENT WELL. NO RESPIRATORY DISTRESS NOTED. NO SIGNS OF PAIN NOTED. TX PROVIDED ORDERED. KEPT CLEAN AND DRY. REPOSITIONED Q2. BLE ELEVATED. KEPT COMFORTABLE. WILL ENDORSE FOR CONTINUITY OF CARE.
--- NOTE | 2018-05-12 19:50 | NUR ---
RECEIVED PT INTUBATED ON VENTILATOR SUPPORT, NO RESP DISTRESS. PT TOLERATING VENT SETTINGS. SX'D FOR MOD AMT OF THICK PALE SECRETIONS. VENT ALARMS SET AND AUDIBLE. AMBU BAG AT BEDSIDE. ETT SECURE, CUFF LINE OPERATOR. WILL CONTINUE TO MONITOR. Addendum: 05/12/18 at 1950 by CONCHA GILES RT Amended: Links added.
[2018-05-12] MEDS: VANCOMYCIN 1 GM in IV D5W 250ml IV SCH (21:36)
[2018-05-12] MEDS: VALPROIC ACID 250 MG/5 ML UDC GT SCH (21:36)
[2018-05-12] MEDS: DONEPEZIL 5 MG TABLET PO SCH (21:37)
[2018-05-13] VITALS (35 sets, daily range): BP systolic 95–126; BP diastolic 35–54
[2018-05-13] MEDS: PIPERACILLIN /TAZOBACTAM 3.375 G in IV D5W 100 ML IV SCH ×3 (00:53→16:35)
[2018-05-13 04:47] LABS: BASOPHILS % (AUTO) 0.3 % (0.0-2.0); EOSINOPHILS % (AUTO) 2.7 % (0.0-6.0); HEMATOCRIT 25 % (33-45); HEMOGLOBIN 8.2 g/dL (11.5-14.8); LYMPHOCYTES # (AUTO) 1.2 /CMM (0.8-4.8); LYMPHOCYTES % (AUTO) 7.9 % (20.0-44.0); MEAN CORPUSCULAR HGB CONC 32 g/dl (31.0-36.0); MEAN CORPUSCULAR VOLUME 84 fL (82-100); MONOCYTES # (AUTO) 1.4 /CMM (0.1-1.30); MONOCYTES % (AUTO) 9.3 % (2.0-12.0); NEUTROPHILS # (AUTO) 11.8 /CMM (1.8-8.9); NEUTROPHILS % (AUTO) 79.8 % (43.0-81.0); PLATELET COUNT (AUTO) 372 /CMM (150-450); RED BLOOD CELL COUNT(AUTO) 3.02 MIL/uL (4.0-5.2); WHITE BLOOD COUNT (AUTO) 14.7 K/uL (4.3-11.0)
[2018-05-13 05:02] LABS: CALCIUM, SERUM 7.2 mg/dL (8.5-10.1); CARBON DIOXIDE 30 mmol/L (21-32); CHLORIDE 96 mmol/L (98-107); CREATININE 0.7 mg/dL (0.6-1.3); GLUCOSE 332 mg/dL (74-106); MAGNESIUM 1.9 mg/dL (1.8-2.4); SODIUM SERUM 131 mmol/L (136-145); UREA NITROGEN, BLOOD 13 mg/dL (7-18)
[2018-05-13] MEDS: JEVITY 1.2 CAL 1,000 ML BOTTLE GT PRN ×2 (06:26→23:16)
--- NOTE | 2018-05-13 06:42 | NUR ---
RN NOTES PATIENT REMAINS INTUBATED, TOLERATING VENT SETTING WELL. NO RESPIRATORY DISTRESS NOTED. NO SIGNS OF PAIN NOTED. NO PRESSORS. CONTINUE WITH NGTF AND TOLERATED WELL. BED BATH DONE NO SOB . NSR ON MONITOR. F/C DRAINED WELL NICK GRAVITY. KEPT CLEAN AND DRY. REPOSITIONED Q2. OFFLOADED EXT WITH PILLOWS KEPT COMFORTABLE. WILL ENDORSE FOR CONTINUITY OF CARE TO AM NURSE.
[2018-05-13] MEDS: ACETYLCYSTEINE 10% SOLN 400 MG/4 ML VIAL NEB SCH ×3 (07:34→23:28)
--- NOTE | 2018-05-13 08:00 | NUR ---
ICU/RN: Pt received, no distress noted, breathing even and unlabored, oral and hygienic care rendered, tolerated well. Pt tracking and alert, off sedation for weaning trials. Restraint care rendered, attempts to pull out lines and tubes. FC draining well to gravity.
[2018-05-13] MEDS: ASPIRIN 81 MG TAB.CHEW PO SCH (08:50)
[2018-05-13] MEDS: AMIODARONE HCL 200 MG TABLET PO SCH (08:51)
[2018-05-13] MEDS: Z GUARD REMEDY 2 OZ OINT TP SCH ×2 (08:51→21:00)
[2018-05-13] MEDS: HYDROGEL DRESSING 90 GM TUBE TP SCH (08:51)
[2018-05-13] MEDS: VALPROIC ACID 250 MG/5 ML UDC GT SCH ×2 (08:51→21:29)
[2018-05-13] MEDS: LACTOBACILLUS RHAMNOSUS GG 1 EACH CAP.SPRINK PO SCH ×2 (08:51→16:36)
[2018-05-13] MEDS: POLYVINYL ALCOHOL 15 ML BOTTLE EACHEYE SCH ×4 (08:52→21:30)
--- NOTE | 2018-05-13 09:45 | NUR ---
ICU/RN: Dr Alvares at bedside; updated on pt status; currently on SIMV mode as ordered, tolerating well with no distress. Family at bedside, spoke with MD regarding POC, in agreement with plan. For CPAP trial tomorrow AM. cash applications representative updated and aware.
[2018-05-13 10:47] LABS: ABG BASE EXCESS 8.5 mmol/L; ABG OXYGEN SATURATION 94.2 % (92.0-98.5); ABG PCO2 41.6 mmHg (35.0-45.0); ABG PH 7.508 (7.350-7.450); ABG PO2 67.2 mmHg (75.0-100.0); AaDO2 170.2 mmHg; COHb 0.3 % (0.5-1.5); MetHb 0.5 % (0.0-1.5); O2Hb 93.4 % (94.0-97.0); PEEP,BG 5 cm H2O; SITE, ABG Right Radial; VT, ABG 400 mL
[2018-05-13] MEDS ORDERED: K PHOS NEUTRAL 250 MG TABLET PO ONE (11:00)
--- NOTE | 2018-05-13 12:53 | NUR ---
ICU/RN: Dr Davis at bedside; updated on pt status. Informed of urine output, SIMV weaning, + MRSA in sputum, ID following case. No new orders.
[2018-05-13] MEDS: VANCOMYCIN 1 GM in IV D5W 250 ML IV SCH (14:22)
--- NOTE | 2018-05-13 15:00 | NUR ---
ICU/RN: Bed bath, wound care rendered. Pt tolerated well. Noted with large amount of soft yellow stool. Will cont to monitor pt.
[2018-05-13] MEDS: CALCIUM CARB 250MG /VITAMIN D 1 UDTAB PO SCH (17:24)
--- NOTE | 2018-05-13 18:00 | NUR ---
ICU/RN: Melania STEREOPTIC PROJECTION TOPOGRAPHER in for ID consult; updated on pt status; labs and micro results dw STEREOPTIC PROJECTION TOPOGRAPHER.
--- NOTE | 2018-05-13 19:15 | NUR ---
ICU/RN: Pt resting comfortably in bed, no distress noted. MARIELLA ML patent, FC draining well to gravity. Care endorsed to PM RN for FERMIN.
--- NOTE | 2018-05-13 19:15 | NUR ---
RECEIVED PT INTUBATED 7.5 ETT SECURED AT 23 CM AT THE LIP, NO RESP DISTRESS. PT TOLERATING VENT SETTINGS. SUCTIONED SMALL AMT OF WHITE THICK SECRETIONS. VENT ALARMS SET AND AUDIBLE. AMBU BAG AT BEDSIDE. ETT SECURE, CUFF ACCOUNTS RECEIVABLE COLLECTOR. WILL CONTINUE TO MONITOR.
--- NOTE | 2018-05-13 19:40 | NUR ---
EDUCATION AND TRAINING COORDINATOR RCD PT W/DX CHF; PT IS ALERT CURRENTLY OFF SEDATION ON BL SOF WRIST RESTRAINTS; PT IS NOTED REACHING FOR ET TUBE DURING RELEASE OF RESTRAINTS. INTUBATED 7.5 @ 23 W/VENT SETTINGS SIMV 4 PS 15 PEEP 5; PLAN FOR CPAP IN AM. SB ON MONITOR. BP WNL. R NARE NG TUBE WITH JEVITY 1.2 @ 60 ML/HR; NO RESIDUAL NOTED. SACRAL SKIN TEAR WITH MEPILEX IN PLACE. MARIELLA MIDLINE PATENT.
--- NOTE | 2018-05-13 20:30 | NUR ---
TESTER OPERATORFLORIST DESIGNER AT BEDSIDE; UPDATED ON PLAN OF CARE.
[2018-05-13] MEDS: DONEPEZIL 5 MG TABLET PO SCH (21:29)
[2018-05-13] MEDS: Z GUARD REMEDY 2 OZ OINT TP PRN (21:30)
[2018-05-13] MEDS: MUPIROCIN OINT 2% 22 GM TUBE SCH (21:32)
[2018-05-13] MEDS: IPRATROPIUM NEB FS 0.5 MG/2.5 ML AMPUL.NEB NEB PRN (23:28)
[2018-05-13] MEDS: ALBUTEROL FS 2.5 MG/3 ML VIAL.NEB NEB PRN (23:28)
[2018-05-14] VITALS (38 sets, daily range): BP systolic 87–133; BP diastolic 35–66
[2018-05-14] MEDS: PIPERACILLIN /TAZOBACTAM 3.375 G in IV D5W 100 ML IV SCH ×3 (00:15→16:47)
--- NOTE | 2018-05-14 03:00 | NUR ---
CLINIC CHARGE NURSE NOTED SWELLING TO RIGHT HAND; REMOVED HL. HAND ELEVATED ON PILLOW CONTINUE TO MONITOR.
[2018-05-14 04:48] LABS: BASOPHILS % (AUTO) 0.3 % (0.0-2.0); EOSINOPHILS % (AUTO) 2.8 % (0.0-6.0); HEMATOCRIT 25 % (33-45); HEMOGLOBIN 8.1 g/dL (11.5-14.8); LYMPHOCYTES # (AUTO) 1.6 /CMM (0.8-4.8); LYMPHOCYTES % (AUTO) 11.1 % (20.0-44.0); MEAN CORPUSCULAR HGB CONC 33 g/dl (31.0-36.0); MEAN CORPUSCULAR VOLUME 84 fL (82-100); MONOCYTES # (AUTO) 1.3 /CMM (0.1-1.30); MONOCYTES % (AUTO) 9.4 % (2.0-12.0); NEUTROPHILS # (AUTO) 10.8 /CMM (1.8-8.9); NEUTROPHILS % (AUTO) 76.4 % (43.0-81.0); PLATELET COUNT (AUTO) 368 /CMM (150-450); RED BLOOD CELL COUNT(AUTO) 2.94 MIL/uL (4.0-5.2); WHITE BLOOD COUNT (AUTO) 14.1 K/uL (4.3-11.0)
[2018-05-14 05:20] LABS: CALCIUM, SERUM 7.6 mg/dL (8.5-10.1); CARBON DIOXIDE 33 mmol/L (21-32); CHLORIDE 94 mmol/L (98-107); CREATININE 0.7 mg/dL (0.6-1.3); GLUCOSE 280 mg/dL (74-106); PHOSPHORUS 2.5 mg/dL (2.5-4.9); SODIUM SERUM 130 mmol/L (136-145); UREA NITROGEN, BLOOD 12 mg/dL (7-18)
--- NOTE | 2018-05-14 07:45 | NUR ---
FORKLIFT TRUCK OPERATOR: pt.is without sedation, on wrists restraints, can open eyes by touch, passive, rest, unable to follow commands, no grimacing, HR 54-71, SBP 93-119, O2sat. over 96%, on SIMV, plan CPAP today, lot of suction amount by report, NGT residual WNL, will turn q2h
[2018-05-14] MEDS: ACETYLCYSTEINE 10% SOLN 400 MG/4 ML VIAL NEB SCH ×3 (07:52→23:19)
--- NOTE | 2018-05-14 07:58 | NUR ---
pt placed on cpap per md order. rn aware Addendum: 05/14/18 at 0807 by CARMINA FRAUSTO RT Amended: Links added.
--- NOTE | 2018-05-14 08:47 | NUR ---
SURVEILLANCE SPECIALIST: HR 56-58 now, hold Amiodarone
[2018-05-14] MEDS: ASPIRIN 81 MG TAB.CHEW PO SCH (08:59)
[2018-05-14] MEDS: VALPROIC ACID 250 MG/5 ML UDC GT SCH ×2 (08:59→21:45)
[2018-05-14] MEDS: LACTOBACILLUS RHAMNOSUS GG 1 EACH CAP.SPRINK PO SCH ×2 (08:59→16:47)
[2018-05-14] MEDS: AMIODARONE HCL 200 MG TABLET PO SCH (09:00)
[2018-05-14] MEDS: VANCOMYCIN 1 GM in IV D5W 250 ML IV SCH (09:05)
[2018-05-14] MEDS: Z GUARD REMEDY 2 OZ OINT TP PRN (09:05)
[2018-05-14] MEDS: Z GUARD REMEDY 2 OZ OINT TP SCH ×2 (09:05→21:02)
[2018-05-14] MEDS: MUPIROCIN OINT 2% 22 GM TUBE SCH ×2 (09:06→21:03)
[2018-05-14] MEDS: POLYVINYL ALCOHOL 15 ML BOTTLE EACHEYE SCH ×4 (09:06→21:05)
[2018-05-14] MEDS: HYDROGEL DRESSING 90 GM TUBE TP SCH (09:06)
[2018-05-14 09:29] LABS: ABG BASE EXCESS 9.6 mmol/L; ABG OXYGEN SATURATION 94.2 % (92.0-98.5); ABG PCO2 42.6 mmHg (35.0-45.0); ABG PH 7.513 (7.350-7.450); ABG PO2 69.2 mmHg (75.0-100.0); COHb 0.3 % (0.5-1.5); MetHb 0.7 % (0.0-1.5); O2Hb 93.3 % (94.0-97.0); SITE, ABG Right Radial; VENT MODE, BG CPAP PSV 15
--- NOTE | 2018-05-14 09:30 | NUR ---
COMMUNICATION SPEC: pt.is on CPAP, O2sat. 96-98%, suctioned x2 since , going for ABG, no SOB now, slow reaction to follow commands, family is at BS
--- NOTE | 2018-05-14 10:43 | NUR ---
OPTICAL MECHANIC APPRENTICE: ABG done/waiting , is in room, updated with pt.current status, VS, neurostatus, ABG, suction amount, I/O, labs, meds, antbxs, spoke with pt.family
--- NOTE | 2018-05-14 12:00 | NUR ---
BUSINESS SERVICES REPRESENTATIVE: is in room, updated with pt.ABG, neurostatus, suctions amount, spoke with family, said: continue CPAP, change to AC mode with breathing problem, RT updated
[2018-05-14] MEDS: CALCIUM CARB 250MG /VITAMIN D 1 UDTAB PO SCH (17:28)
--- NOTE | 2018-05-14 17:30 | NUR ---
GYROSCOPIC INSTRUMENT MECHANIC: pt.is tolerated well for CPAP now, O2sat. over 96%, no SOB, no distress, but needs to suction q1-2h or prn, lavage given, moderate suction amount now, unable to follow commands well and show good cough up activity, very weak, SR/SB lowest 53, SBP over 100, NGTF residual WNL, kept HOB over 35, BMx1, all PM/skin/wound care done, turned q2h, still needs restraints d/t risk self extubation, Huma PENNY was in room, updated/see new orders, family is at BS
--- NOTE | 2018-05-14 19:16 | NUR ---
RECEIVED PT INTUBATED 7.5 ETT SECURED AT 23 CM AT THE LIP, NO RESP DISTRESS. PT TOLERATING VENT SETTINGS. SUCTIONED SMALL AMT OF WHITE THICK SECRETIONS WITH PINK TINGED . VENT ALARMS SET AND AUDIBLE. AMBU BAG AT BEDSIDE. ETT SECURE, CUFF CONCAVER. WILL CONTINUE TO MONITOR.
--- NOTE | 2018-05-14 19:20 | NUR ---
ICU/RN RECEIVED PT VIA VENT ON CPAP MODE,SAT 98% 0N 40% FI02.RESP REGULAR AND EVEN.MONITOR SHOWS SINUS RHYTHMN TO SINUS PRISCILLA.
[2018-05-14] MEDS: JEVITY 1.2 CAL 1,000 ML BOTTLE GT PRN (19:44)
--- NOTE | 2018-05-14 20:00 | NUR ---
ICU/ASSOCIATE PROFESSOR OF THEOLOGY AT BED SIDE VISITING,CONDITION REPORT GIVEN..
[2018-05-14] MEDS: DONEPEZIL 5 MG TABLET PO SCH (21:45)
[2018-05-14] MEDS: IPRATROPIUM NEB FS 0.5 MG/2.5 ML AMPUL.NEB NEB PRN (23:19)
[2018-05-14] MEDS: ALBUTEROL FS 2.5 MG/3 ML VIAL.NEB NEB PRN (23:19)
[2018-05-15] VITALS (37 sets, daily range): BP systolic 93–114; BP diastolic 34–63
[2018-05-15] MEDS: PIPERACILLIN /TAZOBACTAM 3.375 G in IV D5W 100 ML IV SCH ×3 (00:47→17:00)
[2018-05-15] MEDS: VANCOMYCIN 1 GM in IV D5W 250 ML IV SCH ×2 (03:06→21:03)
[2018-05-15 05:09] LABS: BASOPHILS # (AUTO) 0.1 /CMM (0.0-0.2); BASOPHILS % (AUTO) 0.4 % (0.0-2.0); EOSINOPHILS % (AUTO) 2.7 % (0.0-6.0); HEMATOCRIT 26 % (33-45); HEMOGLOBIN 8.6 g/dL (11.5-14.8); LYMPHOCYTES # (AUTO) 1.3 /CMM (0.8-4.8); LYMPHOCYTES % (AUTO) 10.6 % (20.0-44.0); MEAN CORPUSCULAR HGB CONC 33 g/dl (31.0-36.0); MEAN CORPUSCULAR VOLUME 84 fL (82-100); MONOCYTES # (AUTO) 1.1 /CMM (0.1-1.30); NEUTROPHILS # (AUTO) 9.3 /CMM (1.8-8.9); NEUTROPHILS % (AUTO) 77.3 % (43.0-81.0); PLATELET COUNT (AUTO) 375 /CMM (150-450); RED BLOOD CELL COUNT(AUTO) 3.09 MIL/uL (4.0-5.2)
[2018-05-15 05:13] LABS: CALCIUM, SERUM 7.4 mg/dL (8.5-10.1); CARBON DIOXIDE 34 mmol/L (21-32); CHLORIDE 92 mmol/L (98-107); CREATININE 0.9 mg/dL (0.6-1.3); GLUCOSE 316 mg/dL (74-106); MAGNESIUM 2.2 mg/dL (1.8-2.4); PHOSPHORUS 2.5 mg/dL (2.5-4.9); POTASSIUM 4.1 mmol/L (3.5-5.1); SODIUM SERUM 130 mmol/L (136-145); UREA NITROGEN, BLOOD 16 mg/dL (7-18)
--- NOTE | 2018-05-15 05:19 | NUR ---
ICU/RN TOLERATING CPAP WELL.SUCTIONED FOR SMALL TO MODERATE AMT THICK WHITE TO PINK-TINGED SECRETIONS.
[2018-05-15 06:15] LABS: BAND % (MANUAL) 4 % (0.0-5.0); EOSINOPHILS % (MANUAL) 4 % (0-4); LYMPHOCYTES % (MANUAL) 7 % (16-48); METAMYELOCYTES % 2 % (0-0); MONOCYTES % (MANUAL) 6 % (0-11.0); MYELOCYTES % 1 % (0-0); NEUTROPHILS % (MANUAL) 76 (42-76)
--- NOTE | 2018-05-15 07:12 | NUR ---
ICU/RN REPORT AND CARE OF PT.GIVEN TO FAVIO Boland
[2018-05-15] MEDS: ACETYLCYSTEINE 10% SOLN 400 MG/4 ML VIAL NEB SCH ×3 (07:26→23:18)
[2018-05-15 08:03] LABS: ABG BASE EXCESS 9.6 mmol/L; ABG OXYGEN SATURATION 94.6 % (92.0-98.5); ABG PCO2 44.1 mmHg (35.0-45.0); ABG PH 7.501 (7.350-7.450); ABG PO2 72.3 mmHg (75.0-100.0); AaDO2 162.2 mmHg; COHb 0.3 % (0.5-1.5); MetHb 0.5 % (0.0-1.5); O2Hb 93.8 % (94.0-97.0); PEEP,BG 5 cm H2O; SITE, ABG Left Radial
[2018-05-15] MEDS: AMIODARONE HCL 200 MG TABLET PO SCH (08:19)
[2018-05-15] MEDS: LACTOBACILLUS RHAMNOSUS GG 1 EACH CAP.SPRINK PO SCH ×2 (08:23→17:02)
[2018-05-15] MEDS: ASPIRIN 81 MG TAB.CHEW PO SCH (08:23)
[2018-05-15] MEDS: VALPROIC ACID 250 MG/5 ML UDC GT SCH ×2 (08:23→21:02)
[2018-05-15] MEDS: POLYVINYL ALCOHOL 15 ML BOTTLE EACHEYE SCH ×4 (08:29→21:03)
[2018-05-15] MEDS: MUPIROCIN OINT 2% 22 GM TUBE SCH ×2 (08:30→21:03)
[2018-05-15] MEDS: Z GUARD REMEDY 2 OZ OINT TP SCH ×3 (08:30→21:18)
[2018-05-15] MEDS: Z GUARD REMEDY 2 OZ OINT TP PRN ×4 (08:30→21:17)
[2018-05-15] MEDS: HYDROGEL DRESSING 90 GM TUBE TP SCH (08:30)
--- NOTE | 2018-05-15 09:30 | NUR ---
DR PATRICK NOTIFIED OF ABG RESULTS
[2018-05-15] MEDS: JEVITY 1.2 CAL 1,000 ML BOTTLE GT PRN (12:11)
[2018-05-15] MEDS: CALCIUM CARB 250MG /VITAMIN D 1 UDTAB PO SCH (17:02)
--- NOTE | 2018-05-15 17:24 | NUR ---
RT END OF THE SHIFT REPORT: PT. 87 Y OLD FEMALE RECEIVED @0700 PT. ORALLY INTUBATED ETT # 7.5 @ 23 CM LIP LINE ON VENT. PT AWAKE NO DISTRESS NOTED. PT TOLERATING VENT CPAP SETTINGS. SUX'D FOR SMALL AMT OF THIN WHITE SECRETIONS. EQUAL CHEST RISE NOTED ETT ADJUSTED PER DR. PATRICK ORDER PULLED BACK 2 CM THX'S GIVEN INLINE AND NO ADVERSE REACTION NOTED. VENT ALARMS SET AND AUDIBLE. AMBU BAG AT BEDSIDE. WILL CONTINUE TO MONITOR. REPORT WILL BE PASS TO PM SHIFT. Addendum: 05/15/18 at 1734 by KARTIK ANNA RT Amended: Links added.
--- NOTE | 2018-05-15 18:38 | NUR ---
ACUTE MEDICAL RESTRAINTS RENEWAL PER DR MAKENZIE Fulton PATIENT ATTEMPTING TO REMOVE ET TUBE SOFT BILATERAL RESTRAINTS FOR UPPER EXTREMITIES EDUCATION PROVIDED TO FAMILY AND PATIENT OTHER ALTERNATIVES UTILIZED PRIOR TO UTILIZING RESTRAINTS
--- NOTE | 2018-05-15 20:00 | NUR ---
Received patient drowsy nonverbal with ETT to vent on CPAP mode FIO2 40% ,PSV 15, PEEP 5 tolerating well.Suctioned moderate amount white thick secretions orally.SPO2 99%. On continuous cardiac monitoring showing SR.Normotensive.NGT placement verified patent with feeding in progress.No residual noted.Maintained HOB elevated.FC to gravity drainage. Turned and repositioned.No distress noted.
[2018-05-15] MEDS: DONEPEZIL 5 MG TABLET PO SCH (21:03)
--- NOTE | 2018-05-15 22:07 | NUR ---
RECEIVED PT INTUBATED 7.5 ETT SECURED AT 21CM AT THE LIP. PT TOLERATING VENT SETTINGS. SX'D FOR MOD AMT OF THIN WHITE SECRETIONS. VENT ALARMS SET AND AUDIBLE. AMBU BAG AT BEDSIDE. WILL CONTINUE TO MONITOR. Addendum: 05/15/18 at 2208 by AMARILIS LAM RT Amended: Links added.
[2018-05-16] VITALS (36 sets, daily range): BP systolic 87–158; BP diastolic 33–78
--- NOTE | 2018-05-16 | NUR ---
Patient with BM.perineal care and bed bath rendered.Complete linens changed.Turned and repositioned.
[2018-05-16] MEDS: PIPERACILLIN /TAZOBACTAM 3.375 G in IV D5W 100 ML IV SCH ×3 (01:00→16:22)
[2018-05-16 04:40] LABS: BASOPHILS % (AUTO) 0.3 % (0.0-2.0); EOSINOPHILS % (AUTO) 2.5 % (0.0-6.0); HEMATOCRIT 24 % (33-45); HEMOGLOBIN 7.9 g/dL (11.5-14.8); LYMPHOCYTES # (AUTO) 1.3 /CMM (0.8-4.8); LYMPHOCYTES % (AUTO) 9.5 % (20.0-44.0); MEAN CORPUSCULAR HGB CONC 33 g/dl (31.0-36.0); MEAN CORPUSCULAR VOLUME 84 fL (82-100); MONOCYTES # (AUTO) 1.1 /CMM (0.1-1.30); MONOCYTES % (AUTO) 7.9 % (2.0-12.0); NEUTROPHILS % (AUTO) 79.8 % (43.0-81.0); PLATELET COUNT (AUTO) 396 /CMM (150-450); RED BLOOD CELL COUNT(AUTO) 2.88 MIL/uL (4.0-5.2); WHITE BLOOD COUNT (AUTO) 13.8 K/uL (4.3-11.0)
[2018-05-16 04:55] LABS: CALCIUM, SERUM 7.2 mg/dL (8.5-10.1); CARBON DIOXIDE 33 mmol/L (21-32); CHLORIDE 95 mmol/L (98-107); CREATININE 0.7 mg/dL (0.6-1.3); GLUCOSE 233 mg/dL (74-106); POTASSIUM 4.3 mmol/L (3.5-5.1); SODIUM SERUM 131 mmol/L (136-145); UREA NITROGEN, BLOOD 17 mg/dL (7-18)
[2018-05-16] MEDS: JEVITY 1.2 CAL 1,000 ML BOTTLE GT PRN (04:58)
--- NOTE | 2018-05-16 06:50 | NUR ---
Patient resting.VS stable.SR.Tolerating feeding.Oral care done.Turned and repositioned.No significant changes noted.
--- NOTE | 2018-05-16 07:43 | NUR ---
olericulture professor note Received patient nonverbal with ETT to vent on CPAP mode FIO2 40% ,PSV 15, PEEP 5 tolerating SPO2 99%.on tele monitor sr at this time, with both bilateral soft restrain On continuous cardiac monitoring showing SR.Normotensive.NGT placement verified patent with feeding in progress.No residual noted.Maintained HOB elevated.FC to gravity drainage. Turned and repositioned.No distress noted.
[2018-05-16] MEDS: ACETYLCYSTEINE 10% SOLN 400 MG/4 ML VIAL NEB SCH ×3 (07:46→23:10)
--- NOTE | 2018-05-16 08:27 | NUR ---
RT PATIENT REC'D ORALLY INTUBATED ON [facility] VENT WITH ORDERED SETTINGS MATT WELL. VENT ALARMS CHECKED + AUDIBLE. CUFF PRESSURE CHECKED BOND CLERK. B/S DIM COARSE. PATIENT AIRWAY SUCTIONED AND PATENT. SMALL AMT OF PALE SEMI-THICK SECRETIONS. AMBU BAG AT [facility]. Addendum: 05/16/18 at 0827 by GISSELL MCKENZIE RT Amended: Links added.
[2018-05-16] MEDS: LACTOBACILLUS RHAMNOSUS GG 1 EACH CAP.SPRINK PO SCH ×2 (08:39→16:25)
[2018-05-16] MEDS: ASPIRIN 81 MG TAB.CHEW PO SCH (08:39)
[2018-05-16] MEDS: VALPROIC ACID 250 MG/5 ML UDC GT SCH ×2 (08:39→21:00)
[2018-05-16] MEDS: AMIODARONE HCL 200 MG TABLET PO SCH (08:39)
[2018-05-16] MEDS: HYDROGEL DRESSING 90 GM TUBE TP SCH (08:40)
[2018-05-16] MEDS: MUPIROCIN OINT 2% 22 GM TUBE SCH ×2 (08:40→21:01)
[2018-05-16] MEDS: Z GUARD REMEDY 2 OZ OINT TP PRN (08:40)
[2018-05-16] MEDS: Z GUARD REMEDY 2 OZ OINT TP SCH ×2 (08:47→21:01)
[2018-05-16] MEDS: POLYVINYL ALCOHOL 15 ML BOTTLE EACHEYE SCH ×4 (08:52→21:00)
--- NOTE | 2018-05-16 10:24 | NUR ---
URBAN DESIGN CONSULTANT NOTE SEEN Y DR CELINA NUÑEZ TO CONT VENT SETTING AND POSSIBLE EXTUBATION IN AM, KEEP CLEAN DRY , REPOSITION Q2 HOUR
--- NOTE | 2018-05-16 12:18 | NUR ---
REGIONAL SERVICE MANAGER NOTE CONT ON NG TUBE FEEDING ORDERED ,ON TELE MONITOR SR-SB ,NOT IN DISTRESS AT THIS TIME , SEEN BY DR PATRICK
[2018-05-16] MEDS: VANCOMYCIN 1 GM in IV D5W 250 ML IV SCH (14:01)
--- NOTE | 2018-05-16 15:08 | NUR ---
MANAGER UROLOGY NOTE KEEP CLEAN DRY , NOT IN ACUTE DISTRESS Addendum: 05/16/18 at 1514 by JAYDEN MOY RN UNABLE TO REMOVE SOFT RESTRAIN, EUGENIO AT RISK TO REMOVE ALL LINES ,WILL CONT TO MONITOR CLOSELY
[2018-05-16] MEDS: CALCIUM CARB 250MG /VITAMIN D 1 UDTAB PO SCH (17:05)
--- NOTE | 2018-05-16 18:26 | NUR ---
GROCERY ASSOCIATE NOTE ORAL SUCTION DONE, KEEP CLEAN DRY WILL CONT TO MONITOR CLOSELY CONT INFUSE ZOSYN ATB
--- NOTE | 2018-05-16 19:30 | NUR ---
MARKETING SALES REPRESENTATIVE NOTE PT RECEIVED AWAKE AND INTUBATED. NONVERBAL WITH FAMILY AT BEDSIDE. ETT 7.5 AND 21@ THE LIP. ON CPAP WITH SETTINGS WELL TOLERATED AND SATURATING WELL. BREATHING REGULAR AND UNLABORED. HOB ELEVATED AND ON ASPIRATION PRECAUTIONS. IV MARIELLA MIDLINE CLEAN, DRY AND PATENT. ISOLATION PRECAUTIONS OBSERVED. GT FEEDING WELL TOLERATED AND NO RESIDUALS NOTED. GEE CATHETER IN PLACE AND DRAINING BY GRAVITY. WILL CONTINUE TO MONITOR.
--- NOTE | 2018-05-16 19:58 | NUR ---
RECEIVED PT INTUBATED CPAP MODE 7.5 ETT SECURED AT 21CM AT THE LIP. PT TOLERATING VENT SETTINGS. SX'D FOR MOD AMT OF THICK YELLOW SECRETIONS. VENT ALARMS SET AND AUDIBLE. AMBU BAG AT BEDSIDE. WILL CONTINUE TO MONITOR. Addendum: 05/16/18 at 1958 by AMARILIS LAM RT Amended: Links added.
[2018-05-16] MEDS: DONEPEZIL 5 MG TABLET PO SCH (21:00)
[2018-05-16] MEDS: SULFAMETH/TRIMETH 800/160 MG 1 UDTAB TABLET PO SCH (22:29)
[2018-05-17] VITALS (29 sets, daily range): BP systolic 90–164; BP diastolic 35–62
[2018-05-17] MEDS: JEVITY 1.2 CAL 1,000 ML BOTTLE GT PRN ×2 (02:55→19:28)
[2018-05-17 05:16] LABS: CALCIUM, SERUM 7.7 mg/dL (8.5-10.1); CARBON DIOXIDE 30 mmol/L (21-32); CHLORIDE 96 mmol/L (98-107); CREATININE 0.7 mg/dL (0.6-1.3); GLUCOSE 129 mg/dL (74-106); POTASSIUM 4.3 mmol/L (3.5-5.1); SODIUM SERUM 129 mmol/L (136-145); UREA NITROGEN, BLOOD 16 mg/dL (7-18)
--- NOTE | 2018-05-17 07:05 | NUR ---
RN NOTE RECEIVED ON BED, INTUBATED, NONVERBAL , ETT 7.5 AND 21@ THE LIP. ON CPAP, TOLERATING CURRENT SETTINGS WELL, O2 SAT 98%, ON TELE SB HR IN 50'S HOB ELEVATED, ON JEVITY AT 60CC/HR VIA R NARE NGT TUBE , NO RESIDUAL NOTED, R UPPER ARM MIDLINE SITE , CLEAN, DRY AND INTACT, ISOLATION PRECAUTIONS OBSERVED. , GEE CATHETER IN PLACE AND DRAINING BY GRAVITY.SR UP x3, BED LOCKED AND IN LOWEST POSITION , CONTINUE TO MONITOR .
--- NOTE | 2018-05-17 07:24 | NUR ---
FOOD SERVICE ASSISTANT NOTE PT REMAINED STABLE DURING SHIFT. NO ACUTE DISTRESS NOTED. ALL NEEDS ATTENDED TO PROMPTLY. KEPT CLEAN AND DRY. ETT IN PLACE. ISOLATION PRECAUTIONS OBSERVED.HOB ELEVATED. SUCTIONED NEEDED. WILL ENDORSE TO NEXT SHIFT FOR CONTINUITY OF CARE.
[2018-05-17] MEDS: ACETYLCYSTEINE 10% SOLN 400 MG/4 ML VIAL NEB SCH ×3 (07:44→23:30)
[2018-05-17] MEDS ORDERED: DC PROPOFOL WHEN EXTUBATED XX PRN ×2 (08:00→09:40)
--- NOTE | 2018-05-17 08:05 | NUR ---
RT PATIENT REC'D ORALLY INTUBATED ON [facility] VENT WITH ORDERED SETTINGS MATT WELL. VENT ALARMS CHECKED + AUDIBLE. CUFF PRESSURE CHECKED TRACE CLERK. B/S DIM COARSE. PATIENT AIRWAY SUCTIONED AND PATENT. SMALL AMT OF PALE SEMI-THICK SECRETIONS. AMBU BAG AT [facility]. Addendum: 05/17/18 at 0805 by GISSELL MCKENZIE RT Amended: Links added.
[2018-05-17] MEDS: VALPROIC ACID 250 MG/5 ML UDC GT SCH ×2 (08:20→21:15)
[2018-05-17] MEDS: LACTOBACILLUS RHAMNOSUS GG 1 EACH CAP.SPRINK PO SCH ×2 (08:20→16:29)
[2018-05-17] MEDS: ASPIRIN 81 MG TAB.CHEW PO SCH (08:20)
[2018-05-17] MEDS: SULFAMETH/TRIMETH 800/160 MG 1 UDTAB TABLET PO SCH ×2 (08:20→21:15)
[2018-05-17] MEDS: AMIODARONE HCL 200 MG TABLET PO SCH (08:21)
[2018-05-17] MEDS: MUPIROCIN OINT 2% 22 GM TUBE SCH ×2 (08:24→21:17)
[2018-05-17] MEDS: HYDROGEL DRESSING 90 GM TUBE TP SCH (08:24)
[2018-05-17] MEDS: POLYVINYL ALCOHOL 15 ML BOTTLE EACHEYE SCH ×4 (08:25→21:16)
[2018-05-17] MEDS: Z GUARD REMEDY 2 OZ OINT TP PRN ×2 (08:25→21:16)
[2018-05-17] MEDS: Z GUARD REMEDY 2 OZ OINT TP SCH ×2 (08:25→21:17)
[2018-05-17] MEDS: VANCOMYCIN 1 GM in IV D5W 250 ML IV SCH (08:26)
--- NOTE | 2018-05-17 09:40 | NUR ---
RN NOTES DR PATRICK AT THE BEDSIDE, SPOKEN TO FAMILY EXTENSIVELY REGARDING EXTUBATION AND DNR/DNI STATUS. ORDER RECEIVED FOR EXTUBATION AND NO REINTUBATION AT THIS TIME . CONTINUE TO MONITOR
--- NOTE | 2018-05-17 09:45 | NUR ---
RT PER DR PATRICK ORDER PATIENT EXTUBATED AND PLACED ON 5L N/C. RN AT BEDSIDE. PATIENT IN NO DISTRESS AT THIS TIME.
--- NOTE | 2018-05-17 09:45 | NUR ---
RN NOTES PT EXTUBATED PER DR PATRICK ORDER BY RT, PT PLACED ON 5 L O2 N/C , O2 SAT 98% , VSS STABLE , CONTINUE TO MONITOR .
[2018-05-17] MEDS ORDERED: HYDROMORPHONE INJ 2 MG/ML DISP.SYRIN IV PRN (10:00)
[2018-05-17] MEDS ORDERED: MORPHINE SULFATE INJ 4 MG/ML DISP.SYRIN IV PRN (10:00)
--- NOTE | 2018-05-17 12:00 | NUR ---
RN NOTES PT STABLE , NO SOB NOTED, SUPPORTIVE FAMILY AT THE BEDSIDE, CONTINUE TO MONITOR.
--- NOTE | 2018-05-17 16:00 | NUR ---
RN NOTES TOLERATING TF WELL. VSS STABLE , NO DISTRESS NOTED , NO SOB NOTED .
[2018-05-17] MEDS: CALCIUM CARB 250MG /VITAMIN D 1 UDTAB PO SCH (17:01)
--- NOTE | 2018-05-17 18:12 | NUR ---
RN NOTES NO SIGNIFICANT CHANGES NOTED ON THIS SHIFT, PT ON FACE MASK , O2 SAT 94% , SR UP X3, CALL LIGHT WITHIN EASY REACH, BED LOCKED AND IN LOWEST POSITION , WILL ENDOSE TO DISTILLERY MILLER HELPER NURSE FOR CONTINUITY OF CARE.
--- NOTE | 2018-05-17 19:30 | NUR ---
STUMP SHOOTER NOTE PT RECEIVED IN BED AWAKE AND NONVERBAL. ON 10L OF O2 VIA FACE MASK. BREATHING UNLABORED. NONPRODUCTIVE COUGH NOTED AND UNABLE TO EXPECTORATE. NG DEEP SUCTIONED PT AT BEDSIDE AND WELL TOLERATED WITH PINK TINGED THICK SECRETIONS NOTED. HOB ELEVATED AND ON ASPIRATION PRECAUTIONS. ISOLATION PRECAUTIONS OBSERVED. WILL CONTINUE TO MONITOR.
--- NOTE | 2018-05-17 21:00 | NUR ---
CENTRIFUGAL SPINNER NOTE PT PUT ON NON-REBREATHER 15L AND SATURATING WELL. HOB ELEVATED. WILL MONITOR.
[2018-05-17] MEDS: DONEPEZIL 5 MG TABLET PO SCH (21:15)
[2018-05-18] VITALS (14 sets, daily range): BP systolic 104–141; BP diastolic 41–64
[2018-05-18 02:24] LABS: BASOPHILS % (AUTO) 0.3 % (0.0-2.0); EOSINOPHILS % (AUTO) 1.2 % (0.0-6.0); HEMATOCRIT 29 % (33-45); HEMOGLOBIN 9.6 g/dL (11.5-14.8); LYMPHOCYTES # (AUTO) 1.7 /CMM (0.8-4.8); LYMPHOCYTES % (AUTO) 11.8 % (20.0-44.0); MEAN CORPUSCULAR HGB CONC 33 g/dl (31.0-36.0); MEAN CORPUSCULAR VOLUME 84 fL (82-100); MONOCYTES % (AUTO) 7.1 % (2.0-12.0); NEUTROPHILS # (AUTO) 11.8 /CMM (1.8-8.9); NEUTROPHILS % (AUTO) 79.6 % (43.0-81.0); PLATELET COUNT (AUTO) 528 /CMM (150-450); RED BLOOD CELL COUNT(AUTO) 3.48 MIL/uL (4.0-5.2); WHITE BLOOD COUNT (AUTO) 14.8 K/uL (4.3-11.0)
[2018-05-18 02:42] LABS: CARBON DIOXIDE 29 mmol/L (21-32); CHLORIDE 97 mmol/L (98-107); CREATININE 0.6 mg/dL (0.6-1.3); GLUCOSE 106 mg/dL (74-106); MAGNESIUM 2.1 mg/dL (1.8-2.4); PHOSPHORUS 3.6 mg/dL (2.5-4.9); POTASSIUM 4.6 mmol/L (3.5-5.1); SODIUM SERUM 132 mmol/L (136-145); UREA NITROGEN, BLOOD 14 mg/dL (7-18)
[2018-05-18] MEDS: VANCOMYCIN 1 GM in IV D5W 250 ML IV SCH (03:34)
[2018-05-18] MEDS ORDERED: LIDOCAINE 1%-EPI 1:100,000 20 ML VIAL ONE (04:47)
--- NOTE | 2018-05-18 06:58 | NUR ---
ROPE WALKER NOTE PT REMAINED STABLE DURING SHIFT. NO ACUTE DISTRESS NOTED. ALL NEEDS ATTENDED TO PROMPTLY. KEPT CLEAN AND DRY. REPOSITIONED Q2H. SUCTIONED NEEDED. HOB MAINTAINED ELEVATED. ISOLATION PRECAUTIONS OBSERVED. WILL ENDORSE TO NEXT SHIFT FOR CONTINUITY OF CARE.
--- NOTE | 2018-05-18 07:00 | NUR ---
RN NOTES RECEIVED PT ON BED, ALERT , NON VERBAL , ON NON-REBREATHER MASK AT 10 L , O2 SAT 97%, ON TELE SR HR IN 60;S , JEVITY AT 60CC/HR RUNNING VIA R NARE NGT, TOLERATING WELL, R UPPER ARM MIDLINE SITE CLEAN, DRY AND INTACT, GEE DRINING TO GRAVITY , SR UP x3, CALL LIGHT WITHIN EASY REACH, BED LOCKED AND IN LOWEST POSITION , CONTINUE TO MONITOR .
[2018-05-18] MEDS: ACETYLCYSTEINE 10% SOLN 400 MG/4 ML VIAL NEB SCH ×3 (07:56→23:27)
[2018-05-18] MEDS: ASPIRIN 81 MG TAB.CHEW PO SCH (08:16)
[2018-05-18] MEDS: POLYVINYL ALCOHOL 15 ML BOTTLE EACHEYE SCH ×4 (08:16→21:41)
[2018-05-18] MEDS: AMIODARONE HCL 200 MG TABLET PO SCH (08:16)
[2018-05-18] MEDS: SULFAMETH/TRIMETH 800/160 MG 1 UDTAB TABLET PO SCH ×2 (08:16→21:39)
[2018-05-18] MEDS: LACTOBACILLUS RHAMNOSUS GG 1 EACH CAP.SPRINK PO SCH ×2 (08:16→17:51)
[2018-05-18] MEDS: VALPROIC ACID 250 MG/5 ML UDC GT SCH ×2 (08:16→21:41)
[2018-05-18] MEDS: HYDROGEL DRESSING 90 GM TUBE TP SCH (08:17)
[2018-05-18] MEDS: Z GUARD REMEDY 2 OZ OINT TP SCH ×2 (08:17→21:41)
[2018-05-18] MEDS: MUPIROCIN OINT 2% 22 GM TUBE SCH ×2 (08:17→21:40)
--- NOTE | 2018-05-18 11:45 | NUR ---
RN NOTES PT TRANSFERRED TO ROOM 110 TELE STAUS VIA ACLS PROTOCOL IN STABLE CONDITION , NO BELONGING NOTED . REPORT GIVEN TO SOON RN .
--- NOTE | 2018-05-18 11:46 | NUR ---
NICOLASA RN NMOTES PATIENT TRANSFER FROM ICU SON IN LAW AT BEDSIDE. NO ACUTE ACUTE DISTRESS NOTED. NO SOB NOTED. BREATHING UNLABORED. IV ACCESS PATENT AND INTACT. GT FEEDING RUNNING ORDERED. SAFETY MEASURES IN PLACE. CALL LIGHT WITHIN REACH. WILL CONTINUE TO MONITOR ACCORDINGLY.
--- NOTE | 2018-05-18 16:07 | NUR ---
RT PATIENT CURRENTLY REQUIRING INCREASED FIO2 OF 12L SIMPLE MASK. UNABLE TO GIVE MUCOMYST SAFELY WITHOUT PATIENT DESATURATING.
[2018-05-18] MEDS: CALCIUM CARB 250MG /VITAMIN D 1 UDTAB PO SCH (17:51)
--- NOTE | 2018-05-18 19:00 | NUR ---
NICOLASA RN NMOTES PATIENT IN BED EYES CLOSED, EASY TO AROUSE, RESPOND TO VERBAL AND TACTILE STIMULI. NO ACUTE DISTRESS NOTED. NO SOB NOTED. BREATHING UNLABORED. IV ACCESS PATENT AND INTACT. GT FEEDING RUNNING ORDERED.NEEDS ATTENDED AND ANTICIPATED. KEPT CLEAN DRY AND COMFORTABLE. REPOSITIONED EVERY 2 HOURS AND NEEDED.SAFETY MEASURES IN PLACE. CALL LIGHT WITHIN REACH. ENDORSED TO NIGHT NURSE FOR CONTINUITY OF CARE.
--- NOTE | 2018-05-18 20:40 | NUR ---
ACID PATROLLER INITIAL NOTES, PATIENT IN BED EYES CLOSED, BREATHING EVEN AND UNLABORED, NO ACUTE DISTRESS NOTED, NO SOB NOTED, BREATHING UNLABORED, ON SIMPLE MASK AT 10LPM WITH 02 SAT LEVEL 94% AT THIS TIME, MARIELLA MIDLINE ACCESS PATENT AND INTACT, GT FEEDING INFUSING WELL AND PT TOLERATED WELL, NO RESIDUAL NOTED AT THIS TIME, KEPT DRY AND CLEAN, REPOSITIONED EVERY 2 HOURS AND NEEDED, FAMILY AT BEDSIDE, CALL LIGHT WITHIN REACH, WILL CONTINUE TO MONITOR CLOSELY.
[2018-05-18] MEDS: Z GUARD REMEDY 2 OZ OINT TP PRN (21:40)
[2018-05-18] MEDS: DONEPEZIL 5 MG TABLET PO SCH (21:42)
[2018-05-18] MEDS: JEVITY 1.2 CAL 1,000 ML BOTTLE GT PRN (22:39)
[2018-05-19] VITALS: BP 127/49
--- NOTE | 2018-05-19 01:30 | NUR ---
BEAMING MACHINE OPERATOR NOTES, NOTED PATIENT WITH O2 SATURATION IN THE LOW 80'S, AND TITRATE O2 SAT @ 12LMP STILL NOTED O2 SAT LEVEL @83%, PATIENT PLACED THEN IN NONREBREATHER MASK, AND 02 SAT LEVEL FLUCTUATING BETWEEN 92-95%.
[2018-05-19 04:00] VITALS: BP_SYST 121; BP_SYST 127; BP_DIAS 49; BP_DIAS 51
--- NOTE | 2018-05-19 05:00 | NUR ---
GENERAL NEUROLOGIST NOTES, PATIENT NOTED WITH O2 SAT LEVEL @ 98-99% @15LPM VIA NON REBREATHER MASK, AND PLACED PATIENT BACK TO SIMPLE MASK @ 10LMP, IN LESS THAN 5MIN, O2 SAT LEVEL DROPPED TO 84%, PATIENT WAS PLACED BACK TO NON REBREATHER MASK, WILL CONTINUE TO MONITOR CLOSELY.
[2018-05-19 06:30] LABS: BASOPHILS % (AUTO) 0.3 % (0.0-2.0); EOSINOPHILS % (AUTO) 2.1 % (0.0-6.0); HEMATOCRIT 26 % (33-45); HEMOGLOBIN 8.7 g/dL (11.5-14.8); LYMPHOCYTES # (AUTO) 1.4 /CMM (0.8-4.8); LYMPHOCYTES % (AUTO) 11.8 % (20.0-44.0); MEAN CORPUSCULAR HGB CONC 33 g/dl (31.0-36.0); MEAN CORPUSCULAR VOLUME 85 fL (82-100); MONOCYTES # (AUTO) 1.1 /CMM (0.1-1.30); MONOCYTES % (AUTO) 9.3 % (2.0-12.0); NEUTROPHILS # (AUTO) 9.3 /CMM (1.8-8.9); NEUTROPHILS % (AUTO) 76.5 % (43.0-81.0); PLATELET COUNT (AUTO) 511 /CMM (150-450); RED BLOOD CELL COUNT(AUTO) 3.13 MIL/uL (4.0-5.2); WHITE BLOOD COUNT (AUTO) 12.2 K/uL (4.3-11.0)
[2018-05-19 06:39] LABS: CALCIUM, SERUM 7.6 mg/dL (8.5-10.1); CARBON DIOXIDE 27 mmol/L (21-32); CHLORIDE 99 mmol/L (98-107); CREATININE 0.7 mg/dL (0.6-1.3); GLUCOSE 106 mg/dL (74-106); MAGNESIUM 2.1 mg/dL (1.8-2.4); PHOSPHORUS 3.6 mg/dL (2.5-4.9); POTASSIUM 5.3 mmol/L (3.5-5.1); SODIUM SERUM 130 mmol/L (136-145); UREA NITROGEN, BLOOD 15 mg/dL (7-18)
--- NOTE | 2018-05-19 06:55 | NUR ---
RN ENDING NOTES, PATIENT REMAINS ON NON REBREATHER MASK @ 15LMP AT THIS TIME, WIT O2 SAT LEVEL OF 94-97%, NO DISTRESS NOTED AT THIS TIME, GTF INFUSING WELL, AND PATIENT TOLERATED WELL, HOB ELEVATED AT ALL TIMES, WILL ENDORSE CONTINUITY OF CARE TO ONCOMING NURSE.
[2018-05-19 08:00] VITALS: BP 159/72
[2018-05-19] MEDS: ACETYLCYSTEINE 10% SOLN 400 MG/4 ML VIAL NEB SCH ×2 (08:15→15:05)
[2018-05-19] MEDS: VALPROIC ACID 250 MG/5 ML UDC GT SCH ×2 (08:31→20:02)
[2018-05-19] MEDS: ASPIRIN 81 MG TAB.CHEW PO SCH (08:31)
[2018-05-19] MEDS: AMIODARONE HCL 200 MG TABLET PO SCH (08:31)
[2018-05-19] MEDS: HYDROGEL DRESSING 90 GM TUBE TP SCH (08:32)
[2018-05-19] MEDS: Z GUARD REMEDY 2 OZ OINT TP SCH ×2 (08:32→21:12)
[2018-05-19] MEDS: LACTOBACILLUS RHAMNOSUS GG 1 EACH CAP.SPRINK PO SCH ×2 (08:32→17:13)
[2018-05-19] MEDS: POLYVINYL ALCOHOL 15 ML BOTTLE EACHEYE SCH ×4 (08:32→21:12)
[2018-05-19] MEDS: SULFAMETH/TRIMETH 800/160 MG 1 UDTAB TABLET PO SCH (08:32)
[2018-05-19] MEDS: MUPIROCIN OINT 2% 22 GM TUBE SCH ×2 (09:56→20:11)
[2018-05-19 12:00] VITALS: BP_SYST 110; BP_DIAS 55; BP_DIAS 72
[2018-05-19 16:00] VITALS: BP_SYST 113; BP_SYST 159; BP_DIAS 48; BP_DIAS 72
[2018-05-19] MEDS: CALCIUM CARB 250MG /VITAMIN D 1 UDTAB PO SCH (17:13)
[2018-05-19] MEDS ORDERED: FEE PK DOSING 1 MIN EA MC ONE ×2 (18:20→18:27)
--- NOTE | 2018-05-19 19:37 | NUR ---
STRIP POLISHER NOTE RECEIVED PT ON BED, AWAKE , NON VERBAL , ON NON-REBREATHER MASK AT 15 L , O2 SAT 98%, ON TELE SR HR IN 60;S , JEVITY AT 65CC/HR RUNNING VIA R NARE NGT, TOLERATING WELL, R UPPER ARM MIDLINE SITE CLEAN, DRY AND INTACT, GEE INTACT, DRAINING TO GRAVITY , SIDE RAILS UP x3, CALL LIGHT WITHIN EASY REACH, FAMILY AT BEDSIDE, BED LOCKED AND IN LOWEST POSITION , PATIENT TURNED AND REPOSITIONED FOR COMFORT AND PROTECTION. PATIENT IN NO S/S OF DISTRESS RN WILL CONTINUE TO MONITOR. .
[2018-05-19 20:00] VITALS: BP 126/66
[2018-05-19] MEDS: VANCOMYCIN 0.75 GM in IV NS 0.9% 250 ML IV SCH (20:02)
[2018-05-19] MEDS: MEROPENEM 1 G in IV NS 0.9% 100 ML IV SCH (21:13)
[2018-05-19] MEDS: DONEPEZIL 5 MG TABLET PO SCH (21:15)
[2018-05-19] MEDS: JEVITY 1.2 CAL 1,000 ML BOTTLE GT PRN (21:17)
--- NOTE | 2018-05-19 22:00 | NUR ---
AUTOMOTIVE SERVICE ASSISTANT NOTE PATIENT TURNED AND REPOSTIONED , ORAL CARE DONE.
[2018-05-20] VITALS (8 sets, daily range): BP systolic 111–142; BP diastolic 45–78
[2018-05-20] MEDS: ACETYLCYSTEINE 10% SOLN 400 MG/4 ML VIAL NEB SCH ×4 (00:29→23:00)
[2018-05-20] MEDS: HYDROCODONE/APAP 5/325MG 1 EACH TABLET PO PRN (03:15)
--- NOTE | 2018-05-20 04:00 | NUR ---
COMPUTER PROGRAMMER ANALYST NOTE PATIENT SATURATION DECREASING, PATIENT SKIN STILL WARM TO TOUCH. HR WNL, BP WNL. PATIENT RESPIRATIONS EVEN AND MILDLY LABORED. MD AND CHARGE GERRY AWARE. RN WILL CONTINUE TO MONITOR CLOSELY.
--- NOTE | 2018-05-20 04:30 | NUR ---
BUS DRIVER SCHOOL NOTE RT NOTIFIED OF PT O2 SATURATION, PT DEEP SUCTIONED, 02 BACK UP T0 100%
[2018-05-20 05:50] LABS: CALCIUM, SERUM 8.5 mg/dL (8.5-10.1); CARBON DIOXIDE 28 mmol/L (21-32); CHLORIDE 97 mmol/L (98-107); CREATININE 0.8 mg/dL (0.6-1.3); GLUCOSE 150 mg/dL (74-106); SODIUM SERUM 130 mmol/L (136-145); UREA NITROGEN, BLOOD 19 mg/dL (7-18)
--- NOTE | 2018-05-20 06:29 | NUR ---
PROMOTION OFFICER NOTES PATIENT REMAINS ON NON REBREATHER MASK @ 15LMP AT THIS TIME, WIT O2 SAT LEVEL OF 98-100%, NO DISTRESS NOTED AT THIS TIME BREATHING EVEN AND UNLABORED, NGT INFUSING WELL AT 60 ML, AND PATIENT TOLERATED WELL NO RESIDUAL NOTED, HOB ELEVATED AT ALL TIMES, WILL ENDORSE CONTINUITY OF CARE TO ONCOMING NURSE.
[2018-05-20] MEDS: MUPIROCIN OINT 2% 22 GM TUBE SCH ×2 (09:00→22:19)
[2018-05-20] MEDS: MEROPENEM 1 G in IV NS 0.9% 100 ML IV SCH ×2 (10:43→22:15)
[2018-05-20] MEDS: AMIODARONE HCL 200 MG TABLET PO SCH (10:44)
[2018-05-20] MEDS: VALPROIC ACID 250 MG/5 ML UDC GT SCH ×2 (10:44→22:15)
[2018-05-20] MEDS: ASPIRIN 81 MG TAB.CHEW PO SCH (10:44)
[2018-05-20] MEDS: LACTOBACILLUS RHAMNOSUS GG 1 EACH CAP.SPRINK PO SCH ×2 (10:45→16:55)
[2018-05-20] MEDS: POLYVINYL ALCOHOL 15 ML BOTTLE EACHEYE SCH ×4 (10:46→22:19)
[2018-05-20] MEDS: Z GUARD REMEDY 2 OZ OINT TP SCH ×2 (10:46→22:20)
[2018-05-20] MEDS: HYDROGEL DRESSING 90 GM TUBE TP SCH (10:49)
[2018-05-20 12:34] LABS: BASOPHILS % (AUTO) 0.2 % (0.0-2.0); EOSINOPHILS % (AUTO) 1.1 % (0.0-6.0); HEMATOCRIT 27 % (33-45); HEMOGLOBIN 8.6 g/dL (11.5-14.8); LYMPHOCYTES # (AUTO) 0.7 /CMM (0.8-4.8); LYMPHOCYTES % (AUTO) 4.7 % (20.0-44.0); MEAN CORPUSCULAR HGB CONC 32 g/dl (31.0-36.0); MEAN CORPUSCULAR VOLUME 85 fL (82-100); MONOCYTES # (AUTO) 1.2 /CMM (0.1-1.30); MONOCYTES % (AUTO) 8.1 % (2.0-12.0); NEUTROPHILS # (AUTO) 12.4 /CMM (1.8-8.9); NEUTROPHILS % (AUTO) 85.9 % (43.0-81.0); PLATELET COUNT (AUTO) 452 /CMM (150-450); RED BLOOD CELL COUNT(AUTO) 3.15 MIL/uL (4.0-5.2); WHITE BLOOD COUNT (AUTO) 14.5 K/uL (4.3-11.0)
[2018-05-20] MEDS: VANCOMYCIN 0.75 GM in IV NS 0.9% 250 ML IV SCH (14:52)
[2018-05-20] MEDS: ACETAMINOPHEN 325 MG TABLET PO PRN (16:55)
[2018-05-20] MEDS: CALCIUM CARB 250MG /VITAMIN D 1 UDTAB PO SCH (16:55)
--- NOTE | 2018-05-20 18:00 | NUR ---
Rounded on patient every 2 hours as needed. Pt had two bowel movements and great output from bruce catheter. Wound care performed twice to appease family members. Pt tolerated well. Infectious disease doctor present in room and aware of families concerns for desire to collect urine sample because patient feels like she has a fever.
--- NOTE | 2018-05-20 20:37 | NUR ---
AUTOCLAVE OPERATOR INITIAL NOTE RECEIVED PT ON BED, AWAKE , NON VERBAL , ON NON-REBREATHER MASK AT 15 L , O2 SAT 88%, FAMILY AT BED SIDE, REQUESTED FOR PRN BREATHING TX TO BE GIVEN, ON TELE SR HR 73;S , JEVITY AT 65CC/HR RUNNING VIA R NARE NGT, TOLERATING WELL, R UPPER ARM MIDLINE SITE CLEAN, DRY AND INTACT, GEE INTACT, DRAINING TO GRAVITY , SIDE RAILS UP x3, CALL LIGHT WITHIN EASY REACH, FAMILY AT BEDSIDE, BED LOCKED AND IN LOWEST POSITION , PATIENT TURNED AND REPOSITIONED FOR COMFORT AND PROTECTION. PATIENT IN NO S/S OF DISTRESS RN WILL CONTINUE TO MONITOR. .
[2018-05-20] MEDS: DONEPEZIL 5 MG TABLET PO SCH (22:15)
[2018-05-20] MEDS: ALBUTEROL FS 2.5 MG/3 ML VIAL.NEB NEB PRN (23:00)
[2018-05-21] VITALS: BP 142/66
[2018-05-21 04:00] VITALS: BP 150/69
[2018-05-21] MEDS: JEVITY 1.2 CAL 1,000 ML BOTTLE GT PRN (05:50)
--- NOTE | 2018-05-21 06:23 | NUR ---
CLINICAL APPEALS AUDITOR CLOSING NOTE ENDORSED PT ON BED, AWAKE , NON VERBAL , ON NON-REBREATHER MASK AT 15 L , O2 SAT 88%, FAMILY AT BED SIDE, REQUESTED FOR PRN BREATHING TX TO BE GIVEN, ON TELE SR HR 80;S , JEVITY AT 65CC/HR RUNNING VIA R NARE NGT, TOLERATING WELL, R UPPER ARM MIDLINE SITE CLEAN, DRY AND INTACT, GEE INTACT, DRAINING TO GRAVITY , SIDE RAILS UP x3, CALL LIGHT WITHIN EASY REACH, FAMILY AT BEDSIDE, BED LOCKED AND IN LOWEST POSITION , PATIENT TURNED AND REPOSITIONED FOR COMFORT AND PROTECTION. PATIENT IN NO S/S OF DISTRESS RN WILL CONTINUE TO MONITOR. .
--- NOTE | 2018-05-21 07:30 | NUR ---
CUSTOMER SOLUTIONS COORDINATOR OPENING NOTE RECEIVED PT ON BED, AWAKE , NON VERBAL , ON NON-REBREATHER MASK AT 15 L , O2 SAT 90%, ON TELE SR HR 80 , JEVITY AT 60CC/HR RUNNING VIA R NARE NGT, TOLERATING WELL, R UPPER ARM MIDLINE SITE CLEAN, DRY AND INTACT, GEE INTACT, DRAINING TO GRAVITY , SIDE RAILS UP x3, CALL LIGHT WITHIN EASY REACH,BED LOCKED AND IN LOWEST POSITION WILL CONTINUE TO MONITOR. .
[2018-05-21 07:35] LABS: BASOPHILS % (AUTO) 0.3 % (0.0-2.0); EOSINOPHILS % (AUTO) 1.5 % (0.0-6.0); HEMATOCRIT 26 % (33-45); HEMOGLOBIN 8.6 g/dL (11.5-14.8); LYMPHOCYTES % (AUTO) 8.6 % (20.0-44.0); MEAN CORPUSCULAR HGB CONC 33 g/dl (31.0-36.0); MEAN CORPUSCULAR VOLUME 85 fL (82-100); MONOCYTES # (AUTO) 1.1 /CMM (0.1-1.30); MONOCYTES % (AUTO) 9.8 % (2.0-12.0); NEUTROPHILS # (AUTO) 9.2 /CMM (1.8-8.9); NEUTROPHILS % (AUTO) 79.8 % (43.0-81.0); PLATELET COUNT (AUTO) 469 /CMM (150-450); RED BLOOD CELL COUNT(AUTO) 3.11 MIL/uL (4.0-5.2); WHITE BLOOD COUNT (AUTO) 11.5 K/uL (4.3-11.0)
[2018-05-21 07:45] LABS: CALCIUM, SERUM 6.8 mg/dL (8.5-10.1); CARBON DIOXIDE 28 mmol/L (21-32); CHLORIDE 100 mmol/L (98-107); CREATININE 0.7 mg/dL (0.6-1.3); GLUCOSE 153 mg/dL (74-106); POTASSIUM 4.8 mmol/L (3.5-5.1); SODIUM SERUM 133 mmol/L (136-145); UREA NITROGEN, BLOOD 22 mg/dL (7-18)
[2018-05-21] MEDS: IPRATROPIUM NEB FS 0.5 MG/2.5 ML AMPUL.NEB NEB PRN (07:46)
[2018-05-21] MEDS: ALBUTEROL FS 2.5 MG/3 ML VIAL.NEB NEB PRN ×2 (07:46→14:44)
[2018-05-21] MEDS: ACETYLCYSTEINE 10% SOLN 400 MG/4 ML VIAL NEB SCH ×3 (07:46→23:27)
[2018-05-21 08:00] VITALS: BP 124/69
[2018-05-21] MEDS: VALPROIC ACID 250 MG/5 ML UDC GT SCH ×2 (08:25→21:18)
[2018-05-21] MEDS: ASPIRIN 81 MG TAB.CHEW PO SCH (08:25)
[2018-05-21] MEDS: VANCOMYCIN 0.75 GM in IV NS 0.9% 250 ML IV SCH (08:26)
[2018-05-21] MEDS: LACTOBACILLUS RHAMNOSUS GG 1 EACH CAP.SPRINK PO SCH ×2 (08:26→17:48)
[2018-05-21] MEDS: AMIODARONE HCL 200 MG TABLET PO SCH (08:26)
[2018-05-21] MEDS: HYDROGEL DRESSING 90 GM TUBE TP SCH (08:27)
[2018-05-21] MEDS: MUPIROCIN OINT 2% 22 GM TUBE SCH ×2 (08:28→21:19)
[2018-05-21] MEDS: Z GUARD REMEDY 2 OZ OINT TP SCH ×2 (08:28→21:19)
[2018-05-21] MEDS: POLYVINYL ALCOHOL 15 ML BOTTLE EACHEYE SCH ×4 (08:29→21:19)
--- NOTE | 2018-05-21 10:04 | NUR ---
RT RECEIVED PT ON A NRB 15L. PT SPO2 89%, NTS PT PRE TX, SP02 INCREASED TO 95%. BREATHING TX GIVEN AND SX POST TX. PT SP02 INCREASED TO 98%. SX WITH LRG AMT OF THK BAZAN SECRETIONS. SHABBIR PRIDE NOTIFIED. WILL CONTINUE TO MONITOR T/O SHIFT,
[2018-05-21] MEDS: MEROPENEM 1 G in IV NS 0.9% 100 ML IV SCH ×2 (10:41→21:18)
[2018-05-21 12:00] VITALS: BP 133/57
--- NOTE | 2018-05-21 14:30 | NUR ---
PLATER PRODUCTION NOTE PATIENT SEEN BY AND .UPDATED ABOUT PATIENT CONDITION.THEY TALKED TO THE FAMILY ABOUT PLAN OF CARE.ANSWERED ALL THE QUESTIONS.WILL CONTINUE TO MONITOR.
[2018-05-21 16:00] VITALS: BP 121/47
[2018-05-21] MEDS: CALCIUM CARB 250MG /VITAMIN D 1 UDTAB PO SCH (17:48)
--- NOTE | 2018-05-21 19:57 | NUR ---
RN OPENING NOTES RECEIVED REPORT FROM SHANNEN SHEA. PATIENT A/A/O X1, NON-VERBAL BUT RESPONSIVE TO SOME TACTILE STIMULI. BREATHING EVEN & UNLABORED, TOLERATING O2 @ 2LPM VIA NC. ON TELE W/ SINUS RHYTHM, HR 70. RIGHT UPPER ARM MIDLINE INTACT & PATENT W/ DRESSING CDI ON TKO. NGT IN PLACE & PATENT W/ GTF RUNNING @ 60 ML/HR. NO RESIDUAL NOTED @ THIS TIME. GEE CATH W/ MINIMAL URINE. NO S/S OF PAIN OR DISCOMFORT @ THIS TIME. SAFETY MEASURES IN PLACE W/ SIDE RAILS UP & BED ALARM ON. WILL CONTINUE TO MONITOR.
[2018-05-21 20:00] VITALS: BP 97/68
[2018-05-21] MEDS: DONEPEZIL 5 MG TABLET PO SCH (21:18)
[2018-05-22] VITALS: BP 106/44
[2018-05-22] MEDS: VANCOMYCIN 0.75 GM in IV NS 0.9% 250 ML IV SCH ×2 (02:39→20:12)
[2018-05-22 04:00] VITALS: BP 93/52
[2018-05-22 06:09] LABS: BASOPHILS # (AUTO) 0.1 /CMM (0.0-0.2); BASOPHILS % (AUTO) 0.7 % (0.0-2.0); EOSINOPHILS % (AUTO) 2.8 % (0.0-6.0); HEMATOCRIT 24 % (33-45); HEMOGLOBIN 8.1 g/dL (11.5-14.8); LYMPHOCYTES # (AUTO) 1.4 /CMM (0.8-4.8); LYMPHOCYTES % (AUTO) 14.1 % (20.0-44.0); MEAN CORPUSCULAR HGB CONC 34 g/dl (31.0-36.0); MEAN CORPUSCULAR VOLUME 85 fL (82-100); MONOCYTES % (AUTO) 10.1 % (2.0-12.0); NEUTROPHILS % (AUTO) 72.3 % (43.0-81.0); PLATELET COUNT (AUTO) 430 /CMM (150-450); RED BLOOD CELL COUNT(AUTO) 2.86 MIL/uL (4.0-5.2); WHITE BLOOD COUNT (AUTO) 9.6 K/uL (4.3-11.0)
[2018-05-22 06:32] LABS: CALCIUM, SERUM 7.8 mg/dL (8.5-10.1); CARBON DIOXIDE 29 mmol/L (21-32); CHLORIDE 99 mmol/L (98-107); CREATININE 0.7 mg/dL (0.6-1.3); GLUCOSE 115 mg/dL (74-106); POTASSIUM 4.6 mmol/L (3.5-5.1); SODIUM SERUM 131 mmol/L (136-145); UREA NITROGEN, BLOOD 23 mg/dL (7-18)
--- NOTE | 2018-05-22 07:00 | NUR ---
MANAGER CLINICAL SERVICES NOTES RECEIVED PT IN BED, OBTUNDED RESPONDING TO PAINFUL STIMULI. ON TELE PT SR 60'S. PT ON NON-REBREATHER MASK. 02 SAT 100. LUNG SOUNDS CRACKLES THROUGHOUT. NGT PATENT AND FLUSHED WITH 30CC H2O. PERIPHERAL PULSES PRESENT WEAK AND THREADY. DEPENDENT EDEMA NOTED ON LEFT SIDE. F/C DRAINING CLEAR, YUVAL URINE. BED IN LOCKED/LOWEST POSITION. CALL LIGHT IN REACH. WILL CONT TO MONITOR.
[2018-05-22 08:00] VITALS: BP 152/87
[2018-05-22] MEDS: ACETYLCYSTEINE 10% SOLN 400 MG/4 ML VIAL NEB SCH ×3 (08:08→23:10)
[2018-05-22] MEDS: VALPROIC ACID 250 MG/5 ML UDC GT SCH ×2 (09:15→21:07)
[2018-05-22] MEDS: AMIODARONE HCL 200 MG TABLET PO SCH (09:15)
[2018-05-22] MEDS: LACTOBACILLUS RHAMNOSUS GG 1 EACH CAP.SPRINK PO SCH ×2 (09:15→17:39)
[2018-05-22] MEDS: ASPIRIN 81 MG TAB.CHEW PO SCH (09:15)
[2018-05-22] MEDS: MEROPENEM 1 G in IV NS 0.9% 100 ML IV SCH ×2 (09:16→21:23)
[2018-05-22] MEDS: MUPIROCIN OINT 2% 22 GM TUBE SCH ×2 (09:22→21:08)
[2018-05-22] MEDS: POLYVINYL ALCOHOL 15 ML BOTTLE EACHEYE SCH ×4 (09:22→21:09)
[2018-05-22] MEDS: HYDROGEL DRESSING 90 GM TUBE TP SCH (09:23)
[2018-05-22] MEDS: Z GUARD REMEDY 2 OZ OINT TP PRN (09:23)
[2018-05-22] MEDS: Z GUARD REMEDY 2 OZ OINT TP SCH ×2 (09:31→21:10)
[2018-05-22] MEDS: JEVITY 1.2 CAL 1,000 ML BOTTLE GT PRN (10:33)
[2018-05-22 12:00] VITALS: BP 143/79
[2018-05-22 16:00] VITALS: BP 113/54
--- NOTE | 2018-05-22 17:28 | NUR ---
ART DIRECTOR NOTES REPORT GIVEN TO SHABBIR DAVEY FOR FERMIN. PT IN BED, EYES OPEN. ON NON-REBREATHER AT 15L. TOLERATING WELL. BED IN LOCKED/LOWEST POSITION. CALL LIGHT IN REACH. ALL NEEDS ATTENDED TO.
--- NOTE | 2018-05-22 17:35 | NUR ---
SPOUT TENDER NOTE RECEIVED PATIENT IN BED. SLEEPING, RESPONDS TO PHYSICAL STIMULI WITH EYE OPENING, NON-VERBAL. PATIENT IS ON 15L O2 VIA NON-REBREATHER MASK. TOLERATING WELL. RESPIRATIONS EVEN AND UNLABORED. IN NO APPARENT DISTRESS OR DISCOMFORT AT THIS TIME. PATIENT IS IN STABLE CONDITION. GEE CATHETER IN PLACE, DRAINING WELL. ON TELE MONITORING WITH SR. RIGHT UPPER ARM MIDLINE 18G, SL, PATENT AND INTACT. PATIENT IS RECEIVING G-TUBE FEEDING AT 60ML/HR, TOLERATING WELL. PATIENT KEPT CLEAN AND COMFORTABLE, ALL NEEDS ATTENDED. SAFETY MEASURES IN PLACE, BED IN LOW LOCKED POSITION, SIDE RAILS UP X3, CALL LIGHT WITHIN EASY REACH. PATIENT WAS ENDORSED TO FROM SHABBIR HOOPER TO ME FOR FERMIN.
[2018-05-22] MEDS: CALCIUM CARB 250MG /VITAMIN D 1 UDTAB PO SCH (17:39)
--- NOTE | 2018-05-22 19:00 | NUR ---
AGRICULTURAL ENGINEERING TEACHER CLOSING NOTE PATIENT IN BED. SLEEPING, RESPONDS TO PHYSICAL STIMULI WITH EYE OPENING, NON-VERBAL. PATIENT IS ON 15L O2 VIA NON-REBREATHER MASK. TOLERATING WELL. RESPIRATIONS EVEN AND UNLABORED. IN NO APPARENT DISTRESS OR DISCOMFORT AT THIS TIME. PATIENT IS IN STABLE CONDITION. GEE CATHETER IN PLACE, DRAINING WELL. ON TELE MONITORING WITH SR. RIGHT UPPER ARM MIDLINE 18G, SL, PATENT AND INTACT. PATIENT IS RECEIVING NG-TUBE FEEDING AT 30ML/HR, TOLERATING WELL. PATIENT KEPT CLEAN AND COMFORTABLE, ALL NEEDS ATTENDED. SAFETY MEASURES IN PLACE, BED IN LOW LOCKED POSITION, SIDE RAILS UP X3, CALL LIGHT WITHIN EASY REACH. WILL ENDORSE TO PM NURSE FOR FERMIN.
--- NOTE | 2018-05-22 19:10 | NUR ---
WOODWORKING MACHINE FEEDER INITIAL NOTES RECEIVED PATIENT IN BED WITH FAMILY AT BEDSIDE. PATIENT A/A/O X1, NON-VERBAL BUT RESPONSIVE TO SOME TACTILE STIMULI. BREATHING EVEN & UNLABORED, ON 15L O2 VIA REBREATHER MASK. ON TELE MONITOR WITH READING SINUS RHYTHM, HR 63. RIGHT UPPER ARM MIDLINE INTACT & PATENT. NGT IN PLACE & PATENT W/ GTF RUNNING @ 30 ML/HR. NO RESIDUAL NOTED AT THIS TIME. GEE CATH DRAINING GOOD AMOUNT OF URINE. NO S/S OF PAIN OR DISCOMFORT AT THIS TIME. SAFETY MEASURES IN PLACE W/ SIDE RAILS UP. WILL CONTINUE TO MONITOR ACCORDINGLY.
[2018-05-22 20:00] VITALS: BP 122/48
[2018-05-22] MEDS: DONEPEZIL 5 MG TABLET PO SCH (21:11)
[2018-05-22] MEDS: ALBUTEROL FS 2.5 MG/3 ML VIAL.NEB NEB PRN (23:10)
[2018-05-22] MEDS: IPRATROPIUM NEB FS 0.5 MG/2.5 ML AMPUL.NEB NEB PRN (23:10)
[2018-05-23] VITALS (8 sets, daily range): BP systolic 114–143; BP diastolic 49–69
--- NOTE | 2018-05-23 06:57 | NUR ---
OFF PREMISE SERVICE REPRESENTATIVE CLOSING NOTE PATIENT IN BED. SLEEPING, RESPONDS TO PHYSICAL STIMULI WITH EYE OPENING, NON-VERBAL. PATIENT IS ON 15L O2 VIA NON-REBREATHER MASK. TOLERATING WELL. RESPIRATIONS EVEN AND UNLABORED. IN NO APPARENT DISTRESS OR DISCOMFORT AT THIS TIME. PATIENT IS IN STABLE CONDITION. GEE CATHETER IN PLACE, DRAINING WELL. ON TELE MONITOR, CURRENT READING IS SR 60. RIGHT UPPER ARM MIDLINE 18G, SL, PATENT AND INTACT. PATIENT IS RECEIVING NG-TUBE FEEDING AT 40ML/HR, TOLERATING WELL. PATIENT KEPT CLEAN AND COMFORTABLE, ALL NEEDS ATTENDED. SAFETY MEASURES IN PLACE, BED IN LOW LOCKED POSITION, SIDE RAILS UP X3, CALL LIGHT WITHIN EASY REACH. WILL ENDORSE FERMIN TO ONCOMING RN.
[2018-05-23 06:58] LABS: BASOPHILS % (AUTO) 0.7 % (0.0-2.0); EOSINOPHILS % (AUTO) 4.7 % (0.0-6.0); HEMATOCRIT 23 % (33-45); HEMOGLOBIN 7.6 g/dL (11.5-14.8); LYMPHOCYTES # (AUTO) 1.1 /CMM (0.8-4.8); LYMPHOCYTES % (AUTO) 17.2 % (20.0-44.0); MEAN CORPUSCULAR HGB CONC 33 g/dl (31.0-36.0); MEAN CORPUSCULAR VOLUME 84 fL (82-100); MONOCYTES # (AUTO) 0.6 /CMM (0.1-1.30); MONOCYTES % (AUTO) 9.2 % (2.0-12.0); NEUTROPHILS # (AUTO) 4.5 /CMM (1.8-8.9); NEUTROPHILS % (AUTO) 68.2 % (43.0-81.0); PLATELET COUNT (AUTO) 395 /CMM (150-450); RED BLOOD CELL COUNT(AUTO) 2.69 MIL/uL (4.0-5.2); WHITE BLOOD COUNT (AUTO) 6.6 K/uL (4.3-11.0)
[2018-05-23 07:09] LABS: CALCIUM, SERUM 7.8 mg/dL (8.5-10.1); CARBON DIOXIDE 30 mmol/L (21-32); CHLORIDE 102 mmol/L (98-107); CREATININE 0.6 mg/dL (0.6-1.3); GLUCOSE 126 mg/dL (74-106); POTASSIUM 4.4 mmol/L (3.5-5.1); SODIUM SERUM 134 mmol/L (136-145); UREA NITROGEN, BLOOD 22 mg/dL (7-18)
[2018-05-23] MEDS: ACETYLCYSTEINE 10% SOLN 400 MG/4 ML VIAL NEB SCH ×3 (07:10→23:27)
--- NOTE | 2018-05-23 07:35 | NUR ---
TELE/RN OPENING NOTE THE PATIENT IS RECEIVED SLEEPING IN BED. THE PATIENT RESPONSIVE TO TACTILE STIMULI BY OPENING EYES. THE PATIENT IS ON 15 L/MIN OXYGEN VIA NON-REBREATHER MASK AND SATURATION IS AT 100%. PATIENT IS IN NO APPARENT DISTRESS. GEE CATH DRAINING FREELY. NOTED CLEAR, YELLOW COLOR URINE. NO BLADDER DISTENSION NOTED. RIGHT UPPER ARM MIDLINE G 18 PATENT AND SALINE LOCKED. NG TUBE FEEDING JEVITY AT 40 ML/HR. ABDOMEN SOFT AND NON-DISTENDED. BED LOW AND LOCKED. SIDE RAILS UP X3. CALL LIGHT WITHIN REACH. WILL CONTINUE TO MONITOR.
[2018-05-23] MEDS: LACTOBACILLUS RHAMNOSUS GG 1 EACH CAP.SPRINK PO SCH ×2 (08:54→17:00)
[2018-05-23] MEDS: VALPROIC ACID 250 MG/5 ML UDC GT SCH ×2 (08:54→21:18)
[2018-05-23] MEDS: MEROPENEM 1 G in IV NS 0.9% 100 ML IV SCH ×2 (08:55→21:18)
[2018-05-23] MEDS: ASPIRIN 81 MG TAB.CHEW PO SCH (08:55)
[2018-05-23] MEDS: AMIODARONE HCL 200 MG TABLET PO SCH (08:55)
[2018-05-23] MEDS: Z GUARD REMEDY 2 OZ OINT TP SCH ×2 (09:05→21:27)
[2018-05-23] MEDS: POLYVINYL ALCOHOL 15 ML BOTTLE EACHEYE SCH ×4 (09:06→21:20)
[2018-05-23] MEDS: HYDROGEL DRESSING 90 GM TUBE TP SCH (09:06)
[2018-05-23] MEDS: MUPIROCIN OINT 2% 22 GM TUBE SCH ×2 (09:06→21:20)
[2018-05-23 09:51] LABS: ABG BASE EXCESS 5.7 mmol/L; ABG OXYGEN SATURATION 98.1 % (92.0-98.5); ABG PCO2 36.8 mmHg (35.0-45.0); ABG PH 7.515 (7.350-7.450); ABG PO2 108.6 mmHg (75.0-100.0); AaDO2 567.6 mmHg; COHb 0.2 % (0.5-1.5); MetHb 0.9 % (0.0-1.5); SITE, ABG Right Radial; VENT MODE, BG NRB
--- NOTE | 2018-05-23 12:30 | NUR ---
TELE/RN NOTE DR CARRENO IS MADE AWARE OF ABG RESULT. PER DR CARRENO RP ATTEMPTED TO SIMPLE MASK INSTEAD OF NON-REBREATHING MASK HOWEVER, THE PATIENT STATED TO DESATURATE. PATIENT IS PLACED BACK ON NON-REBREATHER MASK 15L/MIN AND SATURATION IMPROVED TO 100%. RESPONSIBLE CONSTITUTION PARTY IS MADE AWARE.
[2018-05-23] MEDS: VANCOMYCIN 0.75 GM in IV NS 0.9% 250 ML IV SCH (14:14)
[2018-05-23] MEDS: CALCIUM CARB 250MG /VITAMIN D 1 UDTAB PO SCH (17:00)
[2018-05-23] MEDS: JEVITY 1.2 CAL 1,000 ML BOTTLE GT PRN (17:12)
--- NOTE | 2018-05-23 18:49 | NUR ---
TELE/RN CLOSING NOTE THE PATIENT IS IN BED EYES OPEN. RESPONSIVE TO TACTILE STIMULI BY OPENING EYES. PATIENT NON-VERBAL. EXTERNA; TELE BOX READING IS SR 62. PATIENT REMAINS ON NON-REBREATHER MAST 15ML/HR AND SATURATION IS AT 99%. RESPIRATION REGULAR AND UNLABORED. GEE CATH DRAINING CLEAR, YELLOW COLOR URINE. NO BLADER DISTENSION NOTED. NG TUBE FEEDING JEVITY 60ML/HR INFUSING. ABDOMEN SOFT AND NON-DISTENDED. NO RESIDUAL NOTED. MARIELLA MID LINE G 18 PATENT AND SALINE LOCKED. GOOD AND GENTLE SKIN CARE RENDERED. KEPT CLEAN AND COMFORTABLE TURNED AND REPOSITIONED Q2HR AND NEEDED. ALL NEEDS ATTENDED. BED LOW AND LOCKED. SIDE RAILS UP X3. CALL LIGHT WITHIN REACH. WILL ENDORSE TO SKIRT TRIMMER.
[2018-05-23] MEDS: DONEPEZIL 5 MG TABLET PO SCH (21:18)
[2018-05-23] MEDS: Z GUARD REMEDY 2 OZ OINT TP PRN (21:19)
[2018-05-24] VITALS: BP 101/57
[2018-05-24 04:00] VITALS: BP 106/63
[2018-05-24 06:33] LABS: BASOPHILS % (AUTO) 0.8 % (0.0-2.0); EOSINOPHILS % (AUTO) 6.9 % (0.0-6.0); HEMATOCRIT 25 % (33-45); HEMOGLOBIN 8.1 g/dL (11.5-14.8); LYMPHOCYTES # (AUTO) 1.4 /CMM (0.8-4.8); LYMPHOCYTES % (AUTO) 23.2 % (20.0-44.0); MEAN CORPUSCULAR HGB CONC 33 g/dl (31.0-36.0); MEAN CORPUSCULAR VOLUME 85 fL (82-100); MONOCYTES # (AUTO) 0.6 /CMM (0.1-1.30); MONOCYTES % (AUTO) 10.1 % (2.0-12.0); NEUTROPHILS # (AUTO) 3.6 /CMM (1.8-8.9); PLATELET COUNT (AUTO) 379 /CMM (150-450); RED BLOOD CELL COUNT(AUTO) 2.93 MIL/uL (4.0-5.2); WHITE BLOOD COUNT (AUTO) 6.1 K/uL (4.3-11.0)
[2018-05-24 07:10] LABS: CALCIUM, SERUM 7.9 mg/dL (8.5-10.1); CARBON DIOXIDE 28 mmol/L (21-32); CHLORIDE 100 mmol/L (98-107); CREATININE 0.6 mg/dL (0.6-1.3); GLUCOSE 131 mg/dL (74-106); POTASSIUM 4.7 mmol/L (3.5-5.1); SODIUM SERUM 131 mmol/L (136-145); UREA NITROGEN, BLOOD 20 mg/dL (7-18)
[2018-05-24] MEDS: VANCOMYCIN 0.75 GM in IV NS 0.9% 250 ML IV SCH (07:20)
--- NOTE | 2018-05-24 07:47 | NUR ---
SHIP PAINTER HELPER NOTES PATIENT RECEIVED RESTING INSIDE ROOM. SLEEPING, EASILY AROUSABLE THROUGH VERBAL AND TACTILE STIMULI. OPENS EYES TO STIMULI, PATIENT NON-VERBAL. CONTINUE WITH O2 USE AT 12L/MIN VIA NON-REBREATHER MASK. NO ACUTE DISTRESS AT THIS TIME. O2 SAT 99%. ONGOING NGT FEEDING OF JEVITY AT 60CC/HR. GEE CATHETER IN PLACE WITH YELLOW URINE OUTPUT NOTED ON COLLECTING BAG. MARIELLA MIDLINE IN PLACE. WILL CONTINUE TO MONITOR. BED LOCKED AND IN LOW POSITION. BILATERAL UPPER SIDE RAILS UP AND LOCKED. MAINTAINED ASPIRATION PRECAUTION. MAINTAINED ISOLATION PRECAUTION. CALL LIGHT WITHIN EASY REACH.
[2018-05-24 08:00] VITALS: BP 126/52
[2018-05-24] MEDS: ACETYLCYSTEINE 10% SOLN 400 MG/4 ML VIAL NEB SCH ×4 (08:08→23:24)
[2018-05-24] MEDS: LACTOBACILLUS RHAMNOSUS GG 1 EACH CAP.SPRINK PO SCH ×2 (08:39→17:38)
[2018-05-24] MEDS: VALPROIC ACID 250 MG/5 ML UDC GT SCH ×2 (08:39→20:20)
[2018-05-24] MEDS: MEROPENEM 1 G in IV NS 0.9% 100 ML IV SCH ×2 (08:40→20:20)
[2018-05-24] MEDS: ASPIRIN 81 MG TAB.CHEW PO SCH (08:40)
[2018-05-24] MEDS: AMIODARONE HCL 200 MG TABLET PO SCH (08:40)
[2018-05-24] MEDS: MUPIROCIN OINT 2% 22 GM TUBE SCH ×2 (08:42→20:21)
[2018-05-24] MEDS: POLYVINYL ALCOHOL 15 ML BOTTLE EACHEYE SCH ×4 (08:42→20:19)
[2018-05-24] MEDS: HYDROGEL DRESSING 90 GM TUBE TP SCH (08:43)
[2018-05-24] MEDS: Z GUARD REMEDY 2 OZ OINT TP SCH ×2 (08:43→20:22)
[2018-05-24 12:00] VITALS: BP 122/56
[2018-05-24] MEDS: JEVITY 1.2 CAL 1,000 ML BOTTLE GT PRN (12:46)
--- NOTE | 2018-05-24 13:00 | NUR ---
SILK SCREEN PRINTING RACKER NOTES PATIENT SEEN AND EXAMINED BY DR. PATRICK, ATTEMPTED TO PLACE PATIENT ON SIMPLE MASK BUT PATIENT NOTED WITH DECREASED O2 SATURATION OF 88%. PATIENT PLACED BACK TO NON-REBREATHER MASK. O2 AT 12L/MIN. O2 SAT WENT UP TO 97%. WILL CONTINUE TO MONITOR
[2018-05-24 16:00] VITALS: BP 133/53
[2018-05-24] MEDS: CALCIUM CARB 250MG /VITAMIN D 1 UDTAB PO SCH (17:38)
--- NOTE | 2018-05-24 18:50 | NUR ---
GAS UTILITY WORKER NOTES PATIENT RESTING INSIDE ROOM. AWAKE, NON-VERBAL, BREATHING EVEN AND UNLABORED. NO SOB OR ACUTE DISTRESS NOTED. PATIENT CALM AND RELAXED. NO CHANGES IN LOC NOTED. MARIELLA MIDLINE IN PLACE. MAINTAINED ISOLATION PRECAUTIONS. CONTINUE WITH NGT FEEDING OF JEVITY AND PATIENT TOLERATING WELL. MAINTAINED ASPIRATION PRECAUTIONS. CONTINUE WITH GEE CATHETER WITH YELLOW URINE OUTPUT NOTED. CATHETER CARE PROVIDED. WILL ENDORSE TO INCOMING SHIFT FOR FERMIN. BED LOCKED AND IN LOW POSITION. BILATERAL UPPER SIDE RAILS UP AND LOCKED. CALL LIGHT WITHIN EASY REACH
[2018-05-24 20:00] VITALS: BP 112/47
[2018-05-24] MEDS: DONEPEZIL 5 MG TABLET PO SCH (23:00)
[2018-05-25] VITALS (7 sets, daily range): BP systolic 104–130; BP diastolic 40–65
[2018-05-25] MEDS: HYDROCODONE/APAP 5/325MG 1 EACH TABLET PO PRN (00:39)
[2018-05-25] MEDS: VANCOMYCIN 0.75 GM in IV NS 0.9% 250 ML IV SCH (02:13)
[2018-05-25] MEDS: JEVITY 1.2 CAL 1,000 ML BOTTLE GT PRN (06:29)
[2018-05-25 06:32] LABS: CALCIUM, SERUM 7.9 mg/dL (8.5-10.1); CARBON DIOXIDE 31 mmol/L (21-32); CHLORIDE 101 mmol/L (98-107); CREATININE 0.6 mg/dL (0.6-1.3); GLUCOSE 143 mg/dL (74-106); POTASSIUM 4.6 mmol/L (3.5-5.1); SODIUM SERUM 134 mmol/L (136-145); UREA NITROGEN, BLOOD 18 mg/dL (7-18)
[2018-05-25] MEDS: ACETYLCYSTEINE 10% SOLN 400 MG/4 ML VIAL NEB SCH ×3 (07:31→23:30)
[2018-05-25] MEDS: MEROPENEM 1 G in IV NS 0.9% 100 ML IV SCH ×2 (12:51→21:52)
[2018-05-25] MEDS: LACTOBACILLUS RHAMNOSUS GG 1 EACH CAP.SPRINK PO SCH ×2 (12:51→18:23)
[2018-05-25] MEDS: VALPROIC ACID 250 MG/5 ML UDC GT SCH ×2 (12:52→21:28)
[2018-05-25] MEDS: ASPIRIN 81 MG TAB.CHEW PO SCH (12:52)
[2018-05-25] MEDS: POLYVINYL ALCOHOL 15 ML BOTTLE EACHEYE SCH ×4 (12:54→21:32)
[2018-05-25] MEDS: AMIODARONE HCL 200 MG TABLET PO SCH (12:54)
[2018-05-25] MEDS: HYDROGEL DRESSING 90 GM TUBE TP SCH (12:55)
[2018-05-25] MEDS: MUPIROCIN OINT 2% 22 GM TUBE SCH ×2 (12:55→21:31)
[2018-05-25] MEDS: Z GUARD REMEDY 2 OZ OINT TP SCH ×2 (12:56→21:31)
[2018-05-25] MEDS: CALCIUM CARB 250MG /VITAMIN D 1 UDTAB PO SCH (18:23)
--- NOTE | 2018-05-25 19:15 | NUR ---
PATROL POLICE SERGEANT NOTE PATIENT RESTING IN BED IN STABLE CONDITION, ON SIMPLE MASK AT 12LPM, NO RESPIRATORY DISTRESS NOTED, SATURATING IN THE HIGH 90S. MIDLINE ON RIGHT UPPER ARM INTACT SALINE LOCK. NG TUBE IN PLACE INFUSING FEEDING ORDERED. SCD'S ON. BED IN LOW LOCKED POSITION, ALARM ON, SIDE RAILS UP, ENDORSED TO BUREAU DIRECTOR NURSE FOR CONTINUITY OF CARE.
--- NOTE | 2018-05-25 20:22 | NUR ---
RN OPENING NOTES RECEIVED REPORT FROM MANI SHEA. PATIENT A/A/O X1 TO NAME, NON-VERBAL & UNABLE TO MAKE NEEDS KNOWN. BREATHING EVEN & UNLABORED, TOLERATING O2 @ 12LPM VIA SIMPLE MASK. ON TELE W/ SINUS PRISCILLA, HR 58. RIGHT UPPER ARM MIDLINE INTACT & PATENT W/ DRESSING CDI, SALINE LOCKED. NO S/S OF PAIN OR DISCOMFORT @ THIS TIME. SAFETY MEASURES IN PLACE W/ SIDE RAILS UP & BED ALARM ON. WILL CONTINUE TO MONITOR.
[2018-05-25] MEDS: VANCOMYCIN 1 GM in IV D5W 250 ML IV SCH (20:39)
[2018-05-25] MEDS: DONEPEZIL 5 MG TABLET PO SCH (21:28)
[2018-05-26] VITALS: BP 133/47
[2018-05-26] MEDS: JEVITY 1.2 CAL 1,000 ML BOTTLE GT PRN (00:03)
[2018-05-26 04:00] VITALS: BP 109/40
[2018-05-26 06:47] LABS: BASOPHILS % (AUTO) 0.5 % (0.0-2.0); EOSINOPHILS % (AUTO) 8.8 % (0.0-6.0); HEMATOCRIT 24 % (33-45); HEMOGLOBIN 8.1 g/dL (11.5-14.8); LYMPHOCYTES # (AUTO) 1.3 /CMM (0.8-4.8); LYMPHOCYTES % (AUTO) 19.8 % (20.0-44.0); MEAN CORPUSCULAR HGB CONC 33 g/dl (31.0-36.0); MEAN CORPUSCULAR VOLUME 85 fL (82-100); MONOCYTES # (AUTO) 0.6 /CMM (0.1-1.30); MONOCYTES % (AUTO) 9.2 % (2.0-12.0); NEUTROPHILS % (AUTO) 61.7 % (43.0-81.0); PLATELET COUNT (AUTO) 340 /CMM (150-450); RED BLOOD CELL COUNT(AUTO) 2.86 MIL/uL (4.0-5.2); WHITE BLOOD COUNT (AUTO) 6.5 K/uL (4.3-11.0)
--- NOTE | 2018-05-26 07:10 | NUR ---
BOOKBINDING MACHINE OPERATOR OPENING NOTES RECEIVED PT LYING ON BED WITH O2 6L VIA SIMPLE MASK.ALERT/ORIENTED X1,NONVERBAL.ON TELE HR IS 56 WITH SB.NO SOB AND ACUTE DISTRESS NOTED.FC IS IN PLACE WITH CLEAR YELLOW COLOR URINE.NG TUBE IN RIGHT NARES IS IN PLACE WITH JEVITY 1.2 @60ML/HR,TOLERATING WELL AND MINIMAL GASTRIC RESIDUAL NOTED.MIDLINE IS ON MARIELLA,SITE IS CLEAN DRY AND INTACT.NO INFILTRATION NOTED.SAFETY IS MAINTAINING ALL THE TIME.BED IS IN LOW POSITION AND LOCKED.CALL LIGHT IS WITHIN REACH.WILL CONTINUE TO MONITOR THE PT CLOSELY.
[2018-05-26 07:40] LABS: CARBON DIOXIDE 28 mmol/L (21-32); CHLORIDE 98 mmol/L (98-107); CREATININE 0.6 mg/dL (0.6-1.3); GLUCOSE 92 mg/dL (74-106); PHOSPHORUS 2.9 mg/dL (2.5-4.9); POTASSIUM 4.6 mmol/L (3.5-5.1); SODIUM SERUM 132 mmol/L (136-145); UREA NITROGEN, BLOOD 19 mg/dL (7-18)
[2018-05-26 08:00] VITALS: BP 103/46
[2018-05-26] MEDS: ALBUTEROL FS 2.5 MG/3 ML VIAL.NEB NEB PRN ×3 (08:21→23:13)
[2018-05-26] MEDS: ACETYLCYSTEINE 10% SOLN 400 MG/4 ML VIAL NEB SCH ×3 (08:22→23:13)
[2018-05-26] MEDS: LACTOBACILLUS RHAMNOSUS GG 1 EACH CAP.SPRINK PO SCH ×2 (08:37→16:38)
[2018-05-26] MEDS: ASPIRIN 81 MG TAB.CHEW PO SCH (08:37)
[2018-05-26] MEDS: VALPROIC ACID 250 MG/5 ML UDC GT SCH ×2 (08:38→21:47)
[2018-05-26] MEDS: MEROPENEM 1 G in IV NS 0.9% 100 ML IV SCH ×2 (08:38→21:47)
[2018-05-26] MEDS: POLYVINYL ALCOHOL 15 ML BOTTLE EACHEYE SCH ×4 (08:48→21:49)
[2018-05-26] MEDS: HYDROGEL DRESSING 90 GM TUBE TP SCH (08:48)
[2018-05-26] MEDS: MUPIROCIN OINT 2% 22 GM TUBE SCH ×2 (08:48→21:49)
[2018-05-26] MEDS: Z GUARD REMEDY 2 OZ OINT TP SCH ×2 (08:49→21:49)
[2018-05-26] MEDS: AMIODARONE HCL 200 MG TABLET PO SCH (09:00)
--- NOTE | 2018-05-26 09:45 | NUR ---
GARNISHMENT SPECIALIST NOTES RT ASSESSED THE PT AND SUCTIONED ,TOLERATED WELL.CHANGED MASK TO NC 4L O2,WITH O2 SATURATION 95%.NO COMPLICATIONS NOTED AND CONTINUE TO MONITOR THE PT CLOSELY.
[2018-05-26 12:00] VITALS: BP 126/62
--- NOTE | 2018-05-26 12:29 | NUR ---
Family meeting was held with pt's daughter Myah, her granddaughter Jailene Bobby, Dr. Pyle, family independence case manager Jn Fortune, Dr. Mi, CNO Jude Alcantar and SW to discuss plan of care. Jailene Rosales wants to be the main contact for communication with doctors, nurses etc, since she is Urdu speaking and pt. daughter Myah is Mexican speaking. Jailene's contact is . NATHALIE contacted pt's RN Jacqueline and informed her to place a note in the chart for all communication regarding pt. to contact Jailene Rosales .
[2018-05-26] MEDS: FERROUS SULFATE (325 MG) 325 MG/TAB TABLET PO SCH ×2 (13:13→16:38)
[2018-05-26] MEDS: VANCOMYCIN 1 GM in IV D5W 250 ML IV SCH (13:13)
[2018-05-26 16:00] VITALS: BP 122/90
[2018-05-26] MEDS: CALCIUM CARB 250MG /VITAMIN D 1 UDTAB PO SCH (17:42)
--- NOTE | 2018-05-26 18:56 | NUR ---
ARTIFICIAL GLASS EYE MAKER NOTES NOTED WITH O2 SATURATION 86% AFTER THE SUCTIONING.CHANGED FROM NC TO SIMPLE MASK ON 10L.O2 SATURATION IS 96%.NO COMPLICATIONS NOTED.
--- NOTE | 2018-05-26 18:59 | NUR ---
LEAD SEWAGE PLANT OPERATOR CLOSING NOTES PT IS ON BED WITH SIMPLE MASK,SATURATING WELL.RESPIRATION IS EVEN AND NONLABORED.ENDORSED TO PRODUCTION CLOTH CUTTER RN FOR FERMIN.
[2018-05-26 20:00] VITALS: BP 128/55
--- NOTE | 2018-05-26 20:10 | NUR ---
RN OPENING NOTES RECEIVED REPORT FROM CHUCKIE RN. PATIENT A/A/O X1 TO NAME, NON-VERBAL & UNABLE TO MAKE NEEDS KNOWN. BREATHING EVEN & UNLABORED, TOLERATING O2 @ 12LPM VIA SIMPLE MASK, SATING WELL @ 94-95%. ON TELE W/ SINUS RHYTHM, HR 64. RIGHT UPPER ARM MIDLINE INTACT & PATENT W/ DRESSING CDI ON TKO. RIGHT NGT INTACT & FLUSHING WELL W/ GTF JEVITY 1.2, NO RESIDUAL @ THIS TIME. NO S/S OF PAIN OR DISCOMFORT @ THIS TIME. SAFETY MEASURES IN PLACE W/ SIDE RAILS UP & BED ALARM ON. HOB ELEVATED FOR ASPIRATION PRECAUTIONS. TURNED & REPOSITIONED FOR COMFORT. WILL CONTINUE TO MONITOR.
[2018-05-26] MEDS: DONEPEZIL 5 MG TABLET PO SCH (21:47)
[2018-05-27] VITALS: BP 120/44
[2018-05-27] MEDS: JEVITY 1.2 CAL 1,000 ML BOTTLE GT PRN ×2 (00:28→18:45)
[2018-05-27 04:00] VITALS: BP 122/64
[2018-05-27] MEDS: ALBUTEROL FS 2.5 MG/3 ML VIAL.NEB NEB PRN ×3 (07:40→22:39)
[2018-05-27] MEDS: ACETYLCYSTEINE 10% SOLN 400 MG/4 ML VIAL NEB SCH ×3 (07:40→22:39)
[2018-05-27 07:45] LABS: BASOPHILS % (AUTO) 0.9 % (0.0-2.0); EOSINOPHILS % (AUTO) 11.1 % (0.0-6.0); HEMATOCRIT 25 % (33-45); HEMOGLOBIN 8.2 g/dL (11.5-14.8); LYMPHOCYTES # (AUTO) 1.2 /CMM (0.8-4.8); LYMPHOCYTES % (AUTO) 23.9 % (20.0-44.0); MEAN CORPUSCULAR HGB CONC 33 g/dl (31.0-36.0); MEAN CORPUSCULAR VOLUME 85 fL (82-100); MONOCYTES # (AUTO) 0.5 /CMM (0.1-1.30); MONOCYTES % (AUTO) 9.2 % (2.0-12.0); NEUTROPHILS # (AUTO) 2.8 /CMM (1.8-8.9); NEUTROPHILS % (AUTO) 54.9 % (43.0-81.0); PLATELET COUNT (AUTO) 297 /CMM (150-450); WHITE BLOOD COUNT (AUTO) 5.1 K/uL (4.3-11.0)
--- NOTE | 2018-05-27 07:45 | NUR ---
REGIONAL BUSINESS MANAGER OPENING NOTES RECEIVED PT RESTING IN BED WITH HOB SLIGHTLY ELEVATED . PT IS A/O X1, AFEBRILE. RESPIRATIONS ARE EVEN AND UNLABORED, NOT IN ANY ACUTE DISTRESS NOTED. NO FACIAL GRIMACING OR MOANING NOTED. MIDLINE TO MARIELLA INTACT, NO INFILTRATION NOTED. DRESSING KEPT CLEAN AND DRY. SAFETY MEASURES ARE IN PLACE. INSTRUCTED PT TO USE CALL LIGHT WHEN ASSISTANCE IS NEEDED, CALL LIGHT IS LEFT WITHIN REACH. WILL CONTINUE TO MONITOR THROUGHOUT SHIFT FOR CONTINUITY OF CARE.
[2018-05-27 08:00] VITALS: BP_SYST 123; BP_SYST 124; BP_DIAS 50; BP_DIAS 53
[2018-05-27] MEDS: FERROUS SULFATE UDC 300 MG/5 ML UDC PO SCH ×2 (08:14→16:19)
[2018-05-27] MEDS: VALPROIC ACID 250 MG/5 ML UDC GT SCH ×2 (08:14→21:36)
[2018-05-27] MEDS: AMIODARONE HCL 200 MG TABLET PO SCH (08:15)
[2018-05-27] MEDS: ASPIRIN 81 MG TAB.CHEW PO SCH (08:15)
[2018-05-27] MEDS: MEROPENEM 1 G in IV NS 0.9% 100 ML IV SCH ×2 (08:15→21:35)
[2018-05-27] MEDS: LACTOBACILLUS RHAMNOSUS GG 1 EACH CAP.SPRINK PO SCH ×2 (08:15→16:19)
[2018-05-27] MEDS: POLYVINYL ALCOHOL 15 ML BOTTLE EACHEYE SCH ×4 (08:18→21:38)
[2018-05-27] MEDS: MUPIROCIN OINT 2% 22 GM TUBE SCH ×2 (08:18→21:38)
[2018-05-27 08:19] LABS: CALCIUM, SERUM 7.9 mg/dL (8.5-10.1); CARBON DIOXIDE 31 mmol/L (21-32); CHLORIDE 99 mmol/L (98-107); CREATININE 0.6 mg/dL (0.6-1.3); GLUCOSE 131 mg/dL (74-106); MAGNESIUM 2.2 mg/dL (1.8-2.4); POTASSIUM 4.4 mmol/L (3.5-5.1); SODIUM SERUM 134 mmol/L (136-145); UREA NITROGEN, BLOOD 17 mg/dL (7-18)
[2018-05-27] MEDS: HYDROGEL DRESSING 90 GM TUBE TP SCH (08:19)
[2018-05-27] MEDS: Z GUARD REMEDY 2 OZ OINT TP SCH ×2 (08:20→21:38)
[2018-05-27] MEDS: VANCOMYCIN 1 GM in IV D5W 250 ML IV SCH (09:34)
[2018-05-27 12:00] VITALS: BP 124/50
[2018-05-27] MEDS: PROSOURCE / PROSTAT (PYXIS) 30 ML UDC GT SCH ×2 (12:20→16:20)
--- NOTE | 2018-05-27 13:31 | NUR ---
PAINT SPECIALIST NOTES-- PT IS NOT IN ANY APPARENT DISTRESS NOTED. CURRENTLY ON 4L/MIN VIA NC, SATURATING 94%. REPOSITION PER PROTOCOL.
[2018-05-27 16:00] VITALS: BP 115/55
[2018-05-27] MEDS: CALCIUM CARB 250MG /VITAMIN D 1 UDTAB PO SCH (17:30)
--- NOTE | 2018-05-27 18:31 | NUR ---
BOOTMAKER CLOSING NOTES ALL DUE MEDS GIVEN, NEEDS MET AND ANTICIPATED. PT IS A/O X1, AFEBRILE. RESPIRATIONS ARE EVEN AND UNLABORED, NOT IN ANY ACUTE DISTRESS NOTED. SHOWS NO FACIAL GRIMACING OR MOANING NOTED. MIDLINE INTACT, NO INFILTRATION NOTED. DRESSING KEPT CLEAN AND DRY. NGT IN PLACE, FREE OF KINKS. NO RESIDUAL NOTED, TOLERATING FEEDING WELL. SAFETY MEASURES ARE IN PLACE. CALL LIGHT IS LEFT WITHIN REACH. WILL ENDORSE TO NEXT SHIFT FOR CONTINUITY OF CARE.
[2018-05-27 20:00] VITALS: BP 124/59
--- NOTE | 2018-05-27 20:46 | NUR ---
RN OPENING NOTES RECEIVED REPORT FROM ZAIDA SHEA. PATIENT A/A/O X1 TO NAME, NON-VERBAL & UNABLE TO MAKE NEEDS KNOWN. BREATHING EVEN & UNLABORED, TOLERATING O2 @ 3LPM VIA NASAL CANNULA, SATING WELL @ 94-95%. ON TELE W/ SINUS RHYTHM, HR 64. RIGHT UPPER ARM MIDLINE INTACT & PATENT W/ DRESSING CDI ON TKO. RIGHT NGT INTACT & FLUSHING WELL W/ GTF JEVITY 1.2 RUNNING @ 60 ML/HR. NO RESIDUAL @ THIS TIME. NO S/S OF PAIN OR DISCOMFORT @ THIS TIME. SAFETY MEASURES IN PLACE W/ SIDE RAILS UP & BED ALARM ON. HOB ELEVATED FOR ASPIRATION PRECAUTIONS. TURNED & REPOSITIONED FOR COMFORT. WILL CONTINUE TO MONITOR.
[2018-05-27] MEDS: DONEPEZIL 5 MG TABLET PO SCH (21:36)
[2018-05-27] MEDS: IPRATROPIUM NEB FS 0.5 MG/2.5 ML AMPUL.NEB NEB PRN (22:39)
[2018-05-28] VITALS (8 sets, daily range): BP systolic 111–135; BP diastolic 43–59
[2018-05-28] MEDS: VANCOMYCIN 1 GM in IV D5W 250 ML IV SCH ×2 (02:37→20:00)
[2018-05-28 06:26] LABS: BASOPHILS % (AUTO) 0.8 % (0.0-2.0); EOSINOPHILS % (AUTO) 9.3 % (0.0-6.0); HEMATOCRIT 28 % (33-45); HEMOGLOBIN 9.1 g/dL (11.5-14.8); LYMPHOCYTES % (AUTO) 32.3 % (20.0-44.0); MEAN CORPUSCULAR HGB CONC 33 g/dl (31.0-36.0); MEAN CORPUSCULAR VOLUME 85 fL (82-100); MONOCYTES # (AUTO) 0.5 /CMM (0.1-1.30); MONOCYTES % (AUTO) 8.6 % (2.0-12.0); NEUTROPHILS # (AUTO) 3.1 /CMM (1.8-8.9); PLATELET COUNT (AUTO) 309 /CMM (150-450); RED BLOOD CELL COUNT(AUTO) 3.27 MIL/uL (4.0-5.2); WHITE BLOOD COUNT (AUTO) 6.2 K/uL (4.3-11.0)
[2018-05-28 06:29] LABS: CALCIUM, SERUM 8.1 mg/dL (8.5-10.1); CARBON DIOXIDE 30 mmol/L (21-32); CHLORIDE 97 mmol/L (98-107); CREATININE 0.6 mg/dL (0.6-1.3); GLUCOSE 93 mg/dL (74-106); PHOSPHORUS 3.1 mg/dL (2.5-4.9); POTASSIUM 4.7 mmol/L (3.5-5.1); SODIUM SERUM 132 mmol/L (136-145); UREA NITROGEN, BLOOD 22 mg/dL (7-18)
--- NOTE | 2018-05-28 07:00 | NUR ---
TANKMAN OPENING NOTES RECEIVED PT IN BED, EYES OPEN NON VERBAL. NODS YES/NO SOMETIMES. PT IS ON 3L NC. O2 SAT 94%. COARSE CRACKLES THROUGHOUT LUNG VILLAVICENCIO. RT AT BEDSIDE. PT IS SB-SR ON TELE. GEE CATH DRAINING CLEAR YELLOW URINE. PT IS NPO FOR EGD/PEG PLACEMENT. PT HAS IV FLUIDS TKO INFUSING VIA MARIELLA MIDLINE. R NARE NGT NOTED. REDNESS ON PERINEAL AREA. PERIPHERAL PULSES NOTED. CAP REFILL LESS THAN 3 SEC. BED IN LOCKED/LOWEST POSITION. CALL LIGHT IN REACH. WILL CONT TO MONITOR.
[2018-05-28] MEDS: ACETYLCYSTEINE 10% SOLN 400 MG/4 ML VIAL NEB SCH ×3 (07:21→23:22)
[2018-05-28] MEDS: PROSOURCE / PROSTAT (PYXIS) 30 ML UDC GT SCH ×2 (09:00→16:33)
[2018-05-28] MEDS: FERROUS SULFATE UDC 300 MG/5 ML UDC PO SCH ×2 (09:00→16:33)
[2018-05-28] MEDS: VALPROIC ACID 250 MG/5 ML UDC GT SCH ×2 (09:00→21:05)
[2018-05-28] MEDS: LACTOBACILLUS RHAMNOSUS GG 1 EACH CAP.SPRINK PO SCH ×2 (09:00→16:33)
[2018-05-28] MEDS: ASPIRIN 81 MG TAB.CHEW PO SCH (09:00)
[2018-05-28] MEDS: AMIODARONE HCL 200 MG TABLET PO SCH (09:00)
[2018-05-28] MEDS: MUPIROCIN OINT 2% 22 GM TUBE SCH ×2 (09:00→21:07)
[2018-05-28] MEDS: HYDROGEL DRESSING 90 GM TUBE TP SCH (09:30)
[2018-05-28] MEDS: Z GUARD REMEDY 2 OZ OINT TP SCH ×2 (09:30→21:06)
[2018-05-28] MEDS: MEROPENEM 1 G in IV NS 0.9% 100 ML IV SCH ×2 (09:32→21:04)
[2018-05-28] MEDS: POLYVINYL ALCOHOL 15 ML BOTTLE EACHEYE SCH ×4 (09:36→21:06)
[2018-05-28] MEDS ORDERED: IPRATROPIUM NEB FS 0.5 MG/2.5 ML AMPUL.NEB NEB ONE (11:15)
--- NOTE | 2018-05-28 12:30 | NUR ---
MS RN NOTES PT LEFT TO GI LAB FOR PEG PLACEMENT/EGD. FAMILY MEMBER MAEGAN AT BEDSIDE.
--- NOTE | 2018-05-28 13:50 | NUR ---
MS RN NOTES PT RETURNED TO ROOM 110. PT'S VS STABLE. PEG TUBE WAS PLACED. SURGEON ORDERED GTF AT 1600 TODAY
[2018-05-28] MEDS: JEVITY 1.2 CAL 1,000 ML BOTTLE GT PRN (16:33)
--- NOTE | 2018-05-28 20:00 | NUR ---
RN INITIAL NOTES RECEIVED PT IN BED, EYES OPEN NON VERBAL. NODS YES/NO SOMETIMES. PT IS ON 3L NC. O2 SAT 94%. COARSE CRACKLES THROUGHOUT LUNG VILLAVICENCIO. GEE CATH DRAINING CLEAR YELLOW URINE. TUBE FEEDING INFUSING ORDERED IN PEG TUBE. PT HAS IV FLUIDS TKO INFUSING VIA MARIELLA MIDLINE. BED IN LOCKED/LOWEST POSITION. CALL LIGHT IN REACH. WILL CONT TO MONITOR.
--- NOTE | 2018-05-28 20:15 | NUR ---
MS RN NOTES REPORT GIVEN TO SHABBIR KHAN FOR FERMIN. PT IS TOLERATING GTF AT THIS TIME. ALL NEEDS ATTENDED TO.
[2018-05-28] MEDS: CALCIUM CARB 250MG /VITAMIN D 1 UDTAB PO SCH (20:34)
[2018-05-28] MEDS: DONEPEZIL 5 MG TABLET PO SCH (21:05)
[2018-05-29 06:31] LABS: CALCIUM, SERUM 8.2 mg/dL (8.5-10.1); CARBON DIOXIDE 27 mmol/L (21-32); CHLORIDE 96 mmol/L (98-107); CREATININE 0.6 mg/dL (0.6-1.3); GLUCOSE 110 mg/dL (74-106); MAGNESIUM 2.1 mg/dL (1.8-2.4); PHOSPHORUS 3.1 mg/dL (2.5-4.9); POTASSIUM 4.2 mmol/L (3.5-5.1); SODIUM SERUM 130 mmol/L (136-145); UREA NITROGEN, BLOOD 19 mg/dL (7-18)
--- NOTE | 2018-05-29 06:40 | NUR ---
RN CLOSING NOTES ALL DUE MEDS GIVEN, NEEDS MET AND ANTICIPATED. PT IS A/O X1,. RESPIRATIONS ARE EVEN AND UNLABORED, NOT IN ANY ACUTE DISTRESS NOTED. SHOWS NO FACIAL GRIMACING OR MOANING NOTED. MIDLINE INTACT, NO INFILTRATION NOTED. DRESSING KEPT CLEAN AND DRY. TUBE FEEDING INFUSING, NO RESIDUAL NOTED, TOLERATING FEEDING WELL. SAFETY MEASURES ARE IN PLACE. CALL LIGHT IS LEFT WITHIN REACH. WILL ENDORSE TO AM SHIFT FOR CONTINUITY OF CARE.
--- NOTE | 2018-05-29 07:20 | NUR ---
MS RN OPENING NOTES RECEIVED PT LYING ON BED WITH O2 5L VIA NC CONTINUOUSLY WITH O2 SATURATION 95%.NO SOB AND ACUTE DISTRESS NOTED.RIGHT UA MIDLINE IS NOTED,SITE IS CLEAN DRY AND INTACT.NO INFILTRATION NOTED.FC AND G TUBE IS PRESENT AND IN PLACE WITH G TUBE FEEDING JEVITY 1.2 @30CC/HR,TOLERATING WELL AND MINIMAL GASTRIC RESIDUAL IS NOTED.SAFETY IS MAINTAINED AT ALL TIMES.BED IS IN LOW POSITION AND LOCKED.CALL LIGHT IS WITHIN REACH.WILL CONTINUE TO MONITOR THE PT CLOSELY.
[2018-05-29 07:22] LABS: EOSINOPHILS % (AUTO) 12.3 % (0.0-6.0); HEMATOCRIT 26 % (33-45); HEMOGLOBIN 8.4 g/dL (11.5-14.8); LYMPHOCYTES # (AUTO) 1.2 /CMM (0.8-4.8); LYMPHOCYTES % (AUTO) 25.6 % (20.0-44.0); MEAN CORPUSCULAR HGB CONC 33 g/dl (31.0-36.0); MEAN CORPUSCULAR VOLUME 86 fL (82-100); MONOCYTES # (AUTO) 0.4 /CMM (0.1-1.30); MONOCYTES % (AUTO) 8.8 % (2.0-12.0); NEUTROPHILS # (AUTO) 2.5 /CMM (1.8-8.9); NEUTROPHILS % (AUTO) 52.3 % (43.0-81.0); PLATELET COUNT (AUTO) 281 /CMM (150-450); RED BLOOD CELL COUNT(AUTO) 2.99 MIL/uL (4.0-5.2); WHITE BLOOD COUNT (AUTO) 4.8 K/uL (4.3-11.0)
[2018-05-29] MEDS: ALBUTEROL FS 2.5 MG/3 ML VIAL.NEB NEB PRN ×2 (07:43→15:45)
[2018-05-29] MEDS: ACETYLCYSTEINE 10% SOLN 400 MG/4 ML VIAL NEB SCH ×3 (07:43→22:43)
[2018-05-29 08:00] VITALS: BP 122/75
[2018-05-29] MEDS: LACTOBACILLUS RHAMNOSUS GG 1 EACH CAP.SPRINK PO SCH ×2 (08:14→16:34)
[2018-05-29] MEDS: ASPIRIN 81 MG TAB.CHEW PO SCH (08:14)
[2018-05-29] MEDS: VALPROIC ACID 250 MG/5 ML UDC GT SCH ×2 (08:15→20:30)
[2018-05-29] MEDS: FERROUS SULFATE UDC 300 MG/5 ML UDC PO SCH ×2 (08:15→16:34)
[2018-05-29] MEDS: AMIODARONE HCL 200 MG TABLET PO SCH (08:15)
[2018-05-29] MEDS: MEROPENEM 1 G in IV NS 0.9% 100 ML IV SCH ×2 (08:16→20:30)
[2018-05-29] MEDS: MUPIROCIN OINT 2% 22 GM TUBE SCH ×2 (08:20→20:31)
[2018-05-29] MEDS: POLYVINYL ALCOHOL 15 ML BOTTLE EACHEYE SCH ×4 (08:20→20:32)
[2018-05-29] MEDS: HYDROGEL DRESSING 90 GM TUBE TP SCH (08:21)
[2018-05-29] MEDS: Z GUARD REMEDY 2 OZ OINT TP SCH ×2 (08:21→20:31)
[2018-05-29] MEDS: PROSOURCE / PROSTAT (PYXIS) 30 ML UDC GT SCH ×2 (09:47→16:35)
--- NOTE | 2018-05-29 10:00 | NUR ---
MS RN NOTES NOTED WITH O2 SAT 80 WITH NC 5L,DEEP SUCTION HAS DONE AND STILL O2 SAT IS 87.CHANGED TO SIMPLE MASK WITH 12L OF O2.O2 SAT IS 97%.TOLERATING WELL.MADE AWARE.
[2018-05-29 11:02] VITALS: BP 122/75
[2018-05-29] MEDS: VANCOMYCIN 1 GM in IV D5W 250 ML IV SCH (13:30)
--- NOTE | 2018-05-29 14:35 | NUR ---
MS RN NOTES O2 SAT IS 96%.TURNED O2 TO 10L.TOLERATING WELL.CONTINUE TO MONITOR THE PT.
[2018-05-29 16:00] VITALS: BP 101/39
[2018-05-29] MEDS: CALCIUM CARB 250MG /VITAMIN D 1 UDTAB PO SCH (17:12)
--- NOTE | 2018-05-29 18:45 | NUR ---
MS RN CLOSING NOTES PT IS LYING ON BED WITH 5L O2 VIA NC CONTINUOUSLY.TOLERATING WELL.CONTINUE WITH IV ATB.NO SOB AND ACUTE DISTRESS NOTED.ENDORSED TO COAT FINISHER RN FOR FERMIN.
[2018-05-29 20:00] VITALS: BP 130/65
--- NOTE | 2018-05-29 20:00 | NUR ---
FAMILY CAME FOR VISIST REQUESTING RE EVAL FOR PT. PT IS NOT BED BOUND AND ABLE TO GET UP IN THE WHEELCHAIR. ALSO REQUESTING BOLUS FEEDS INSTEAD OF DRIP VIA PUMP. GI UPHOLSTERY TRIMMER CAME SAW PT'S FAMILY AND HIGHLY RECOMMEND SLOW INFUSION AT MOMENT SINCE ITS A NEW PEG. WILL ALSO REQUEST DIETITIAN FOR RECOMMENDATION. WILL ENDORSE TO NEXT SHIFT AND TO CALL MANDO RHODES FOR ALL RESPONSES. @[phone]
[2018-05-29 21:00] VITALS: BP 130/65
[2018-05-29] MEDS: DONEPEZIL 5 MG TABLET PO SCH (22:14)
[2018-05-30] VITALS (8 sets, daily range): BP systolic 111–137; BP diastolic 50–84
[2018-05-30] MEDS: JEVITY 1.2 CAL 1,000 ML BOTTLE GT PRN (04:17)
--- NOTE | 2018-05-30 06:45 | NUR ---
PT ALERT, AWAKE MOST OF THE NIGHT ,SLEEPS LIGHTLY, PT IS NON VERBAL. DOESN'T NOD, FOR YES OR NO QUESTION, PT ON GT FEEDING TOLERATING WELL WITHOUT RESIDUAL, @ 30 CC/HR, CONTINUE WITH ANTIBIOTICS, MIDLINE INTACT. HAD VERY SMALL SOFT BM, NO ACUTE DISTRESS SATURATION ON 94-99% AT 4 LITERS NASAL CANNULA, DEEP SUCTIONING BY RT.REPOSITIONED FOR COMFORT, NOTED GEE LEAKS EVEN WHEN ADJUSTED, KEPT CLEAN AND DRYMEPILEX TO SACRAL WOUND. EXCORIATION OF VAGINAL FOLDS AND GROIN REMAINS THE SAME. VSS,AFEBRILE.
[2018-05-30] MEDS: ALBUTEROL FS 2.5 MG/3 ML VIAL.NEB NEB PRN ×2 (07:34→15:17)
[2018-05-30] MEDS: ACETYLCYSTEINE 10% SOLN 400 MG/4 ML VIAL NEB SCH ×2 (07:34→15:17)
[2018-05-30 07:35] LABS: BASOPHILS % (AUTO) 0.6 % (0.0-2.0); EOSINOPHILS % (AUTO) 13.4 % (0.0-6.0); HEMATOCRIT 26 % (33-45); HEMOGLOBIN 8.6 g/dL (11.5-14.8); LYMPHOCYTES # (AUTO) 1.2 /CMM (0.8-4.8); LYMPHOCYTES % (AUTO) 25.9 % (20.0-44.0); MEAN CORPUSCULAR HGB CONC 33 g/dl (31.0-36.0); MEAN CORPUSCULAR VOLUME 85 fL (82-100); MONOCYTES # (AUTO) 0.4 /CMM (0.1-1.30); MONOCYTES % (AUTO) 8.7 % (2.0-12.0); NEUTROPHILS # (AUTO) 2.5 /CMM (1.8-8.9); NEUTROPHILS % (AUTO) 51.4 % (43.0-81.0); PLATELET COUNT (AUTO) 254 /CMM (150-450); RED BLOOD CELL COUNT(AUTO) 3.07 MIL/uL (4.0-5.2); WHITE BLOOD COUNT (AUTO) 4.8 K/uL (4.3-11.0)
[2018-05-30 07:54] LABS: CALCIUM, SERUM 8.1 mg/dL (8.5-10.1); CARBON DIOXIDE 29 mmol/L (21-32); CHLORIDE 99 mmol/L (98-107); CREATININE 0.6 mg/dL (0.6-1.3); GLUCOSE 115 mg/dL (74-106); MAGNESIUM 2.1 mg/dL (1.8-2.4); PHOSPHORUS 3.3 mg/dL (2.5-4.9); POTASSIUM 4.3 mmol/L (3.5-5.1); SODIUM SERUM 134 mmol/L (136-145); UREA NITROGEN, BLOOD 17 mg/dL (7-18)
[2018-05-30] MEDS: HYDROCODONE/APAP 5/325MG 1 EACH TABLET PO PRN (08:19)
[2018-05-30] MEDS: ASPIRIN 81 MG TAB.CHEW PO SCH (08:20)
[2018-05-30] MEDS: VANCOMYCIN 1 GM in IV D5W 250 ML IV SCH (08:20)
[2018-05-30] MEDS: LACTOBACILLUS RHAMNOSUS GG 1 EACH CAP.SPRINK PO SCH ×2 (08:20→16:45)
[2018-05-30] MEDS: FERROUS SULFATE UDC 300 MG/5 ML UDC PO SCH ×2 (08:21→16:45)
[2018-05-30] MEDS: Z GUARD REMEDY 2 OZ OINT TP SCH ×2 (08:21→21:06)
[2018-05-30] MEDS: POLYVINYL ALCOHOL 15 ML BOTTLE EACHEYE SCH ×4 (08:22→21:05)
[2018-05-30] MEDS: PROSOURCE / PROSTAT (PYXIS) 30 ML UDC GT SCH ×2 (08:22→17:07)
[2018-05-30] MEDS: HYDROGEL DRESSING 90 GM TUBE TP SCH (08:22)
[2018-05-30] MEDS: MUPIROCIN OINT 2% 22 GM TUBE SCH ×2 (08:23→21:06)
[2018-05-30] MEDS: VALPROIC ACID 250 MG/5 ML UDC GT SCH ×2 (08:26→21:05)
[2018-05-30] MEDS: AMIODARONE HCL 200 MG TABLET PO SCH (08:27)
[2018-05-30] MEDS: MEROPENEM 1 G in IV NS 0.9% 100 ML IV SCH ×2 (09:20→21:05)
--- NOTE | 2018-05-30 15:19 | NUR ---
METAL TRIMMER NOTE: NO CHANGES NOTED THROUGHOUT THE SHIFT. SITTER AT BEDSIDE. NO APPARENT DISTRESS NOTED. DENIES PAIN AND DISCOMFORT AT THIS TIME. NO SOB NOTED. IV ON LEFT HAND #18 INTACT AND PATENT, IVF INFUSING WELL. GT INTACT, NO RESIDUAL NOTED AT THIS TIME, ABLE TO TOLERATE FEEDING WELL. KEPT CLEAN, DRY AND COMFORTABLE. SAFETY AND FALL PRECAUTIONS OBSERVED AND MAINTAINED. PATIENT REFUSED LAB BLOOD DRAW 3 TIMES TODAY. LAB UNABLE TO DRAW AND LAB RESULTS. IT WAS EXPLAINED TO THE PATIENT THE NEED FOR THE BLOOD AND THE BENEFITS AND RISK PATIENT STILL REFUSED. PATIENT IS STABLE. WILL CONTINUE TO TREAT AND MONITOR.
[2018-05-30] MEDS: CALCIUM CARB 250MG /VITAMIN D 1 UDTAB PO SCH (17:07)
--- NOTE | 2018-05-30 17:52 | NUR ---
PATIENT PICC LINE DRESSING CHANGED TODAY. PICC LINE SURSE CHECKED PICC LINE FOR PROPER PLACEMENT AND CONFIRMED PICC LINE IS IN PLACE CORRECTLY. PICC LINE IS FLUSHING WELL AT THIS TIME.
[2018-05-30] MEDS: DONEPEZIL 5 MG TABLET PO SCH (22:29)
[2018-05-31] MEDS: ALBUTEROL FS 2.5 MG/3 ML VIAL.NEB NEB PRN (00:02)
[2018-05-31] MEDS: ACETYLCYSTEINE 10% SOLN 400 MG/4 ML VIAL NEB SCH ×3 (00:02→15:33)
[2018-05-31] MEDS: IPRATROPIUM NEB FS 0.5 MG/2.5 ML AMPUL.NEB NEB PRN (00:02)
[2018-05-31] MEDS: VANCOMYCIN 1 GM in IV D5W 250 ML IV SCH (02:21)
[2018-05-31] MEDS: JEVITY 1.2 CAL 1,000 ML BOTTLE GT PRN (03:32)
[2018-05-31 04:00] VITALS: BP 123/53
[2018-05-31 05:00] VITALS: BP 123/53
[2018-05-31 06:22] LABS: CALCIUM, SERUM 7.8 mg/dL (8.5-10.1); CARBON DIOXIDE 30 mmol/L (21-32); CHLORIDE 100 mmol/L (98-107); CREATININE 0.6 mg/dL (0.6-1.3); GLUCOSE 114 mg/dL (74-106); SODIUM SERUM 135 mmol/L (136-145); UREA NITROGEN, BLOOD 18 mg/dL (7-18)
[2018-05-31 08:00] VITALS: BP 109/42
[2018-05-31] MEDS: ASPIRIN 81 MG TAB.CHEW PO SCH (08:59)
[2018-05-31] MEDS: VALPROIC ACID 250 MG/5 ML UDC GT SCH (08:59)
[2018-05-31] MEDS: FERROUS SULFATE UDC 300 MG/5 ML UDC PO SCH ×2 (08:59→17:43)
[2018-05-31 09:00] VITALS: BP 109/42
[2018-05-31] MEDS: AMIODARONE HCL 200 MG TABLET PO SCH (09:00)
[2018-05-31] MEDS: POLYVINYL ALCOHOL 15 ML BOTTLE EACHEYE SCH ×3 (09:00→17:46)
[2018-05-31] MEDS: LACTOBACILLUS RHAMNOSUS GG 1 EACH CAP.SPRINK PO SCH ×2 (09:00→17:44)
[2018-05-31] MEDS: HYDROGEL DRESSING 90 GM TUBE TP SCH (09:01)
[2018-05-31] MEDS: Z GUARD REMEDY 2 OZ OINT TP SCH (09:02)
[2018-05-31] MEDS ORDERED: VALP250S22 GT (09:58)
[2018-05-31] MEDS ORDERED: IPRA0.2S9 NEB (09:58)
[2018-05-31] MEDS ORDERED: MUPI22OI7 (09:58)
[2018-05-31] MEDS ORDERED: ALBUT2 NEB (09:58)
[2018-05-31] MEDS ORDERED: ONDA4VIA23 IVP (09:58)
[2018-05-31] MEDS ORDERED: LACT-209 GT (09:58)
[2018-05-31] MEDS ORDERED: Prosource GT (09:58)
[2018-05-31] MEDS: PROSOURCE / PROSTAT (PYXIS) 30 ML UDC GT SCH ×2 (10:26→17:43)
[2018-05-31] MEDS: MUPIROCIN OINT 2% 22 GM TUBE SCH (10:26)
[2018-05-31 13:00] VITALS: BP 134/57
[2018-05-31] MEDS ORDERED: MERO500V IV (13:28)
--- NOTE | 2018-05-31 13:50 | NUR ---
RN AM SHIFT NOTE RECIEVED PATENT FROM NIGHT NURSE, IN BED RESPONSIVE TO VERBAL STIMULI. DAUGHTER AT BEDSIDE, REPORTS MOTHER IS MORE ALERT THAN PAST WEEK. WBC VALUES CAME BACK AND CURRENTLY WITHIN NORMAL RANGE, GTUBE PATENT AND INTACT, IV PATENT AND NO INFILTRATION, IV ANTIBIOTICS DISCONTINUED, AWAITING PLACEMENT, DAUGHTER REQUEST MD CALL HER FOR UPDATE, MD AWARE AND HAS DAUGHTERS NUMBER
[2018-05-31 16:00] VITALS: BP 134/57
--- NOTE | 2018-05-31 17:28 | NUR ---
RECRUITING CONSULTANT NOTE RN SPOKE TO CHARGE AT [facility], CASE MANAGMENT STATED MRSA IS CLEARED FOR TRANSFER PER [place]. MIKA AT [facility] RECEIVED REPORT. CONTINUE IV ATB FOR 4 DAYS UPON DISCHARGE, PATIENT HAS STAGE 3 WOUND LEAVE GEE CATHETER IN PLACE. TUBE FEEDING JEVITYJ 1.2 AT 40ML/HR AND CAN INCREASE TO 60 IF TOLERATING WELL. PATIENT VITALS WNL NO S/S OF INFECTION OR DISTRESS AT THIS TIME. FAMILY AWARE OF TRANSFER.
[2018-05-31] MEDS: CALCIUM CARB 250MG /VITAMIN D 1 UDTAB PO SCH (18:28)
--- NOTE | 2018-05-31 19:37 | NUR ---
MAYRSURADE RN NOTE PATIENT PREPARED FOR DISCHARGE. EXITCARE AND DISCHARGE PAPERWORK COMPLETE AND SIGNED BY 2 RN'S SINCE PATIENT UNABLE TO SIGN. REPORT CALLED TO MIKA AT [facility]. REPORT GIVEN AT BEDSIDE TO 2 EMT'S. VITAL SIGNS STABLE, NO SIGNS OF PAIN OR RESPIRATORY DISTRESS. MIDLINE INTACT SALINE LOCK LEFT IN PLACE FOR SNF IV ATB INFUSION. G TUBE INTACT IN PLACE. GEE CATHETER INTACT. MRSA SWAB OBTAINED FROM BILATERAL NARES PRIOR TO DISCHARGE. FAMILY AT BEDSIDE. DAUGHTER STATED NO BELONGINGS AT THE HOSPITAL AT THIS TIME. PATIENT LEFT THE FACILITY ON A GURNEY IN STABLE CONDITION WITH ALL PAPERWORK ACCOMPANIED BY 2 EMT'S AND FAMILY AT 18:45.
== END 2018-05-31 18:45 | DRG 720 ==
LOC: ER 10:56 → TELE 12:50 → MED 05-07 08:18 → ICU 05-07 15:27 → TELE1 05-18 11:05 → MEDSG1 05-28 10:28
PROVIDERS: ADMIT Internal Medicine; ATTEND Student in an Organized Health Care Education/Training Program
PROC: 0DH63UZ Insertion of Feeding Device into Stomach, Percutaneous Approach (ICD-10-PCS; 2018-05-05)
PROC: 05H533Z Insertion of Infusion Device into Right Subclavian Vein, Percutaneous Approach (ICD-10-PCS; 2018-05-08)
PROC: B546ZZA Ultrasonography of Right Subclavian Vein, Guidance (ICD-10-PCS; 2018-05-08)
PROC: 5A1955Z Respiratory Ventilation, Greater than 96 Consecutive Hours (ICD-10-PCS; principal; 2018-05-09)
PROC: 0BH17EZ Insertion of Endotracheal Airway into Trachea, Via Natural or Artificial Opening (ICD-10-PCS; principal; 2018-05-09)
DX: A41.9 Sepsis, unspecified organism (principal); J69.0 Pneumonitis due to inhalation of food and vomit; J96.01 Acute respiratory failure with hypoxia; E43 Unspecified severe protein-calorie malnutrition; R65.21 Severe sepsis with septic shock; G92 Toxic encephalopathy; I50.33 Acute on chronic diastolic (congestive) heart failure; L89.150 Pressure ulcer of sacral region, unstageable; R13.10 Dysphagia, unspecified; E87.0 Hyperosmolality and hypernatremia; L89.313 Pressure ulcer of right buttock, stage 3; I11.0 Hypertensive heart disease with heart failure; E03.9 Hypothyroidism, unspecified; E87.1 Hypo-osmolality and hyponatremia; E83.39 Other disorders of phosphorus metabolism; E87.6 Hypokalemia; F03.90 Unspecified dementia, unspecified severity, without behavioral disturbance, psychotic disturbance, mood disturbance, and anxiety; I48.91 Unspecified atrial fibrillation; Z79.82 Long term (current) use of aspirin; Z79.899 Other long term (current) drug therapy; L30.9 Dermatitis, unspecified; Z66 Do not resuscitate; Z51.5 Encounter for palliative care; R73.9 Hyperglycemia, unspecified; E86.0 Dehydration; D50.9 Iron deficiency anemia, unspecified; G40.909 Epilepsy, unspecified, not intractable, without status epilepticus; R29.6 Repeated falls; J98.11 Atelectasis; F09 Unspecified mental disorder due to known physiological condition
CPT/HCPCS: 31720; 36415; 36569; 36600; 70450-TC; 71045-TC; 80048-TC; 80053-TC; 80061-TC; 80076-TC; 80164-TC; 80202-TC; 81000-TC; 82570-TC; 82728-TC; 82803-TC; 82962-TC; 83540-TC; 83735-TC; 83880; 84100-TC; 84134-TC; 84155-TC; 84300-TC; 84439-TC; 84443-TC; 84484-TC; 85025-TC; 85610-TC; 85730-TC; 87040-TC; 87070-TC; 87081-TC; 87086-TC; 92526; 92611-TC; 93307-TC; 94003-TC; 94640-TC; 94760-TC; 94762-TC; 94799-TC; A4216; A4217; A6248; A6402; G0378; J1940; J2185; J2370; J2543; J2704; J2916; J3370; J3480; J3490; J7030; J7040; J7050; J7060; J7070

== ENCOUNTER 2018-11-23 10:39 | Inpatient (IN) | payer OTHER ==
[~2018-11-23] VITALS: Ht 152.4 cm; Wt 63.5 kg
[~2018-11-23 10:39] MED LIST changes: +ACET325T53 PO; +ALBUT2 NEB; +CRAN450C PO; +DEXT15DR6 EACHEYE; +DONE10TA44 PO; +FERR325T23 PO; +IPRA0.2S9 NEB; +IPRA3AMP22 IH; +LACT-209 GT; +MAG30ORA PO; +MEMA10TA PO; +MERO500V IV; +MUPI22OI7; +OMEG1CAP18 PO; +ONDA4VIA23 IVP; +Prosource GT; +VALP250S22 GT
[2018-11-23] MEDS ORDERED: NA P133E RC (11:06)
[2018-11-23] MEDS ORDERED: LEVO112T5 GT (11:06)
[2018-11-23] MEDS ORDERED: BISA10SU61 RC (11:06)
[2018-11-23] MEDS ORDERED: CALC-36 PO (11:06)
[2018-11-23] MEDS ORDERED: LACT-209 GT (11:06)
[2018-11-23] MEDS ORDERED: DOCU-141 PO (11:06)
[2018-11-23] MEDS ORDERED: MAGN400O6 GT (11:06)
--- NOTE | 2018-11-23 11:15 | NUR ---
From [facility] "Cough/congestion Dx w/pneumonia". COUGH IS VERY WEAK. PT IS AOX2, HYPOTENSIVE, RR EVEN AND UNLABORED ON 4L O2 VIA NC. ARABIC-SPEAKING. FAMILY AT BEDSIDE. MADE COMFORTABLE, ON MONITOR, READY FOR EVAL.
[2018-11-23 11:25] LABS: BASOPHILS % (AUTO) 0.4 % (0.0-2.0); EOSINOPHILS % (AUTO) 3.6 % (0.0-6.0); HEMATOCRIT 29 % (33-45); HEMOGLOBIN 9.5 g/dL (11.5-14.8); LYMPHOCYTES # (AUTO) 1.7 /CMM (0.8-4.8); LYMPHOCYTES % (AUTO) 15.4 % (20.0-44.0); MEAN CORPUSCULAR HGB CONC 33 g/dl (31.0-36.0); MEAN CORPUSCULAR VOLUME 88 fL (82-100); MONOCYTES % (AUTO) 8.6 % (2.0-12.0); NEUTROPHILS # (AUTO) 8.1 /CMM (1.8-8.9); PLATELET COUNT (AUTO) 320 /CMM (150-450); RED BLOOD CELL COUNT(AUTO) 3.29 MIL/uL (4.0-5.2); WHITE BLOOD COUNT (AUTO) 11.3 K/uL (4.3-11.0)
[2018-11-23] MEDS ORDERED: IV NS 0.9% 1,000 ML BAG IV ONE (11:30)
[2018-11-23 11:41] LABS: ALANINE AMINOTRANSFERASE 14 U/L (12-78); ALBUMIN 2.2 g/dL (3.4-5.0); ALKALINE PHOSPHATASE 106 U/L (46-116); ASPARTATE AMINOTRANSFERASE 17 U/L (15-37); BILIRUBIN,DIRECT 0.1 mg/dL (0.0-0.2); BILIRUBIN,TOTAL 0.4 mg/dL (0.2-1.0); CARBON DIOXIDE 27 mmol/L (21-32); CHLORIDE 97 mmol/L (98-107); CREATININE 0.7 mg/dL (0.6-1.3); GLUCOSE 92 mg/dL (74-106); POTASSIUM 4.8 mmol/L (3.5-5.1); SODIUM SERUM 130 mmol/L (136-145); TOTAL PROTEIN, SERUM 7.6 g/dL (6.4-8.2); UREA NITROGEN, BLOOD 21 mg/dL (7-18)
[2018-11-23 12:02] LABS: APPEARANCE,URINE Clear (CLEAR); BILIRUBIN,URINE Negative (NEGATIVE); BLOOD, URINE Trace-intact Ery/uL (NEGATIVE); COLOR,URINE Yellow (YELLOW); KETONES,URINE Negative (NEGATIVE); LEUKOCYTE ESTERASE ,URINE Moderate (NEGATIVE); NITRITE, URINE Negative (NEGATIVE); PH,URINE 6.5 (5.0-8.0); PROTEIN,URINE Trace mg/dl (NEGATIVE); UGLUCOSE Negative (NEGATIVE); UROBILINOGEN,URINE >=8.0 EU/dL (0.2)
[2018-11-23 12:04] LABS: BACTERIA,URINE Few /HPF (None Seen); SQUAMOUS EPITHELIAL CELL,UR Few /HPF (None Seen)
--- NOTE | 2018-11-23 12:28 | NUR ---
CALLED [facility] FOR THIS PATIENT
[2018-11-23] MEDS ORDERED: VANCOMYCIN 1 GM in IV D5W 250 ML IV ONE (12:30)
[2018-11-23] MEDS ORDERED: PIPERACILLIN /TAZOBACTAM 3.375 G in IV D5W 50 ML IV ONE (12:30)
--- NOTE | 2018-11-23 12:39 | NUR ---
CALLED NURSING SUP FOR THIS PATIENT
--- NOTE | 2018-11-23 13:00 | NUR ---
PT RESTING COMFORTABLY IN BED. IVF INFUSING. NO COMPLAINTS AT THIS TIME. VSS
--- NOTE | 2018-11-23 13:09 | NUR ---
321-2 [facility]
--- NOTE | 2018-11-23 14:28 | NUR ---
REPORT GIVEN TO SHABBIR DE LUNA FOR [id number]
--- NOTE | 2018-11-23 14:51 | NUR ---
PT TRANSFERRED TO UNIT VIA [facility] Addendum: 11/23/18 at 1537 by KAYODE IVF CONTINUE TO INFUSE ON THE UNIT
--- NOTE | 2018-11-23 14:53 | NUR ---
MS/SHOW HOST/HOSTESS PATIENT ADMITTED FROM ER IN STABLE CONDITION TRANSFERRED VIA STRETCHER ACCOMPANIED BY RN AND TRANSPORTER. A/O X 1, NOT REALLY ABLE TO ANSWER QUESTIONS AT THIS TIME. PER FAMILY BASELINE VERY MINIMAL VERBAL RESPONSE. NO SIGNS OF ACUTE DISTRESS. NO S/S OF PAIN OR DISCOMFORT NOTED. ON OXYGEN VIA NC AT 4LPM TOLERATING WELL. ON G TUBE FEEDING JEVITY AT 55MLS/HR TOLERATING WELL. HOB ELEVATED FOR ASPIRATION PRECAUTION. INCONTINENT OF BOWEL AND BLADDER. ALL NEEDS ATTENDED TO AT THIS TIME. CALL LIGHT WITHIN REACH. WILL CONTINUE TO MONITOR TO ENSURE SAFETY.
[2018-11-23] MEDS ORDERED: JEVITY 1.2 CAL 1,000 ML BOTTLE GT PRN (15:00)
[2018-11-23 15:56] VITALS: BP 109/70
[2018-11-23 16:00] VITALS: BP 109/70
[2018-11-23] MEDS: MEMANTINE HCL 5 MG TABLET PO SCH (17:52)
[2018-11-23] MEDS: CALCIUM CITRATE(CITRACAL) /VITAMIN D 1 TAB TABLET PO SCH (17:52)
[2018-11-23] MEDS: FERROUS SULFATE (325 MG) 325 MG/TAB TABLET PO SCH (17:52)
--- NOTE | 2018-11-23 18:32 | NUR ---
MS/RN CLOSING NOTE PATIENT IN BED IN STABLE CONDITION. A/O X 1. NO SIGNS OF ACUTE DISTRESS. NO COMPLAIN OF PAIN OR DISCOMFORT. ON OXYGEN VIA NC AT 4LPM TOLERATING WELL. ON G TUBE FEEDING JEVITY 1.2 @ 55 MLS/HR. TOLERATING WELL. ALL NEEDS ATTENDED TO AT THIS TIME. CALL LIGHT WITHIN REACH. WILL ENDORSE TO NEXT SHIFT FOR CONTINUITY OF CARE.
--- NOTE | 2018-11-23 19:30 | NUR ---
MS/RN RECEIVE PATIENT APPEAR SLEEPING, APPEAR COMFORTABLE, NO DISTRESS NOTED, GT FEEDING INFUSING, HOB ELEVATED, FAMILY MEMBERS AT BEDSIDE, WILL MONITOR.
[2018-11-23] MEDS ORDERED: IV NS 0.9% 1,000 ML IV PRN (19:39)
[2018-11-23] MEDS ORDERED: FEE PK DOSING 1 MIN EA MC ONE (19:48)
[2018-11-23] MEDS ORDERED: MAGNESIUM HYDROXIDE 30 ML UDC PO PRN (20:00)
[2018-11-23] MEDS ORDERED: ONDANSETRON HCL/PF 4 MG/2 ML VIAL IVP PRN (20:00)
[2018-11-23] MEDS ORDERED: MAG HYDROX/AL HYDROX/SIMETH 30 ML UDC PO PRN (20:00)
[2018-11-23] MEDS ORDERED: HYDROCODONE/APAP 5/325MG 1 EACH TABLET PO PRN (20:00)
[2018-11-23] MEDS ORDERED: Z GUARD REMEDY 2 OZ OINT TP PRN (20:00)
[2018-11-23] MEDS ORDERED: ACETAMINOPHEN 325 MG TABLET PO PRN (20:00)
[2018-11-23] MEDS ORDERED: ZOLPIDEM TARTRATE 5 MG TABLET PO PRN (20:00)
[2018-11-23 20:55] VITALS: BP 100/46
[2018-11-23] MEDS: PIPERACILLIN /TAZOBACTAM 3.375 G in IV D5W 50 ML IV SCH (22:50)
[2018-11-23] MEDS: DOCUSATE SODIUM 100 MG CAPSULE PO SCH (22:50)
[2018-11-23] MEDS: VALPROIC ACID 250 MG/5 ML UDC GT SCH (22:50)
[2018-11-23] MEDS: DONEPEZIL 5 MG TABLET PO SCH (22:51)
[2018-11-23] MEDS: ENOXAPARIN SODIUM 40 MG/0.4 ML DISP.SYRIN SQ SCH (22:52)
[2018-11-24] MEDS: PIPERACILLIN /TAZOBACTAM 3.375 G in IV D5W 50 ML IV SCH ×4 (03:04→20:19)
--- NOTE | 2018-11-24 03:34 | NUR ---
MS/RN PATIENT WAS AWAKE, CONFUSED, MORNING CARE DONE, INCONTINENCE NOTED, GOOD SKIN CARE DON, TOTAL LINEN CHANGE RENDERED, HOB ELEVATED, REPOSITIONED TO COMFORT, WILL CONTINUE TO MONITOR.
--- NOTE | 2018-11-24 06:12 | NUR ---
MS/RN APPEAR SLEEPING, AROUSES EASILY, APPEAR COMFORTABLE, NO DISTRESS NOTED, CALL LIGHT IN REACH, HOB ELEVATED, GT FEEDING INFUSING, NO RESIDUAL NOTE, ALL NEEDS ATTENDED AT THIS TIME, WILL CONTINUE TO MONITOR.
[2018-11-24 08:00] VITALS: BP 108/84
--- NOTE | 2018-11-24 08:00 | NUR ---
RN OPENING NOTES PT AWAKE AND RESTING IN BED. PT CONFUSED. PT PRIMARILY [place] SPEAKER. PT HAS GTUBE INTACT AND RUNNING [employer] 1.2. PT HAS LEFT HAND IV RUNNING NS @75ML/HR. SAFETY PRECAUTIONS IN PLACE, BED IN LOWEST LOCKED POSITION, X2 SIDE RAILS UP AND CALL LIGHT WITHIN REACH. WILL CONTINUE TO MONITOR.
[2018-11-24 08:05] LABS: BASOPHILS # (AUTO) 0.1 /CMM (0.0-0.2); BASOPHILS % (AUTO) 0.8 % (0.0-2.0); EOSINOPHILS % (AUTO) 8.4 % (0.0-6.0); HEMATOCRIT 26 % (33-45); HEMOGLOBIN 8.8 g/dL (11.5-14.8); LYMPHOCYTES # (AUTO) 1.2 /CMM (0.8-4.8); MEAN CORPUSCULAR HGB CONC 34 g/dl (31.0-36.0); MEAN CORPUSCULAR VOLUME 87 fL (82-100); MONOCYTES # (AUTO) 0.8 /CMM (0.1-1.30); MONOCYTES % (AUTO) 10.5 % (2.0-12.0); NEUTROPHILS # (AUTO) 4.8 /CMM (1.8-8.9); NEUTROPHILS % (AUTO) 64.3 % (43.0-81.0); PLATELET COUNT (AUTO) 317 /CMM (150-450); WHITE BLOOD COUNT (AUTO) 7.5 K/uL (4.3-11.0)
[2018-11-24] MEDS: VANCOMYCIN 1 GM in IV D5W 250 ML IV SCH (08:17)
[2018-11-24 08:28] LABS: ALANINE AMINOTRANSFERASE 14 U/L (12-78); ALKALINE PHOSPHATASE 98 U/L (46-116); ASPARTATE AMINOTRANSFERASE 19 U/L (15-37); BILIRUBIN,TOTAL 0.3 mg/dL (0.2-1.0); CALCIUM, SERUM 7.6 mg/dL (8.5-10.1); CARBON DIOXIDE 28 mmol/L (21-32); CHLORIDE 98 mmol/L (98-107); CREATININE 0.7 mg/dL (0.6-1.3); GLUCOSE 112 mg/dL (74-106); PHOSPHORUS 4.1 mg/dL (2.5-4.9); POTASSIUM 4.3 mmol/L (3.5-5.1); SODIUM SERUM 132 mmol/L (136-145); UREA NITROGEN, BLOOD 20 mg/dL (7-18)
[2018-11-24 08:31] LABS: CHOLESTEROL 68 mg/dL (<200); HDL CHOLESTEROL 41 mg/dL (40-60); LDL 28 mg/dL (0-99); TRIGLYCERIDES 30 mg/dL (30-150)
[2018-11-24] MEDS: VALPROIC ACID 250 MG/5 ML UDC GT SCH ×2 (08:58→20:17)
[2018-11-24] MEDS: LEVOTHYROXINE SODIUM 112 MCG TABLET GT SCH (08:59)
[2018-11-24] MEDS: MEMANTINE HCL 5 MG TABLET PO SCH ×2 (08:59→17:15)
[2018-11-24] MEDS: FERROUS SULFATE (325 MG) 325 MG/TAB TABLET PO SCH (08:59)
[2018-11-24] MEDS: ASPIRIN 81 MG TAB.CHEW PO SCH (08:59)
[2018-11-24] MEDS: DOCUSATE SODIUM 100 MG CAPSULE PO SCH ×2 (08:59→20:17)
[2018-11-24] MEDS: AMIODARONE HCL 200 MG TABLET PO SCH (08:59)
[2018-11-24] MEDS: CALCIUM CITRATE(CITRACAL) /VITAMIN D 1 TAB TABLET PO SCH (09:04)
[2018-11-24 09:17] LABS: ABG BASE EXCESS -2.1 mmol/L; ABG OXYGEN SATURATION 97.2 % (92.0-98.5); ABG PCO2 35.6 mmHg (35.0-45.0); ABG PH 7.412 (7.350-7.450); ABG PO2 97.4 mmHg (75.0-100.0); AaDO2 60.2 mmHg; COHb 0.1 % (0.5-1.5); MetHb 0.8 % (0.0-1.5); O2Hb 96.3 % (94.0-97.0); SITE, ABG Right Radial; VENT MODE, BG 3LPM VIA NC
[2018-11-24] MEDS: FUROSEMIDE 40 MG TABLET GT SCH (14:06)
[2018-11-24 16:00] VITALS: BP 98/58
[2018-11-24] MEDS: LACTOBACILLUS RHAMNOSUS GG 1 EACH CAP.SPRINK PO SCH (17:15)
[2018-11-24] MEDS: JEVITY 1.2 CAL 1,000 ML BOTTLE GT PRN (17:25)
--- NOTE | 2018-11-24 18:03 | NUR ---
RN CLOSING NOTES PT AWAKE AND RESTING IN BED. FAMILY AT BEDSIDE. PT CONFUSED. PT PRIMARILY [place] SPEAKER. PT HAS GTUBE INTACT AND RUNNING [facility] 1.2. PT HAS LEFT HAND IV #20. SAFETY PRECAUTIONS IN PLACE, BED IN LOWEST LOCKED POSITION, X2 SIDE RAILS UP AND CALL LIGHT WITHIN REACH. WILL ENDORSE TO RADIAL DRILL OPERATOR NURSE FOR CONTINUITY OF CARE.
--- NOTE | 2018-11-24 19:20 | NUR ---
RN NOTES Received patient A/O x1, awake on Flowers's position on bed. On O2 via NC @ 2LPM, saturating well, no SOB/respiratory distress noted. With GTF infusing well @ 50ml/hr as ordered, tolerating well, no N/V, abdominal distention noted. Peripheral IV line noted out, complete and intact, with blood noted on the blanket. No bleeding noted at the IV site at this time. Kept patient clean, dry and comfortable. On fall precaution. Will continue to monitor the patient accordingly.
--- NOTE | 2018-11-24 20:15 | NUR ---
RN NOTES Reinserted peripheral IV line on back of L hand, G#24. Well blood return after 2nd attempt. Administered Zosyn as ordered. Secured IV line with arm sleeve. Will continue to monitor the patient's IV site accordingly.
[2018-11-24] MEDS: ENOXAPARIN SODIUM 40 MG/0.4 ML DISP.SYRIN SQ SCH (20:20)
[2018-11-24 21:21] VITALS: BP 103/51
[2018-11-24] MEDS: DONEPEZIL 5 MG TABLET PO SCH (22:23)
[2018-11-25] MEDS: VANCOMYCIN 1 GM in IV D5W 250 ML IV SCH ×2 (01:46→20:14)
[2018-11-25] MEDS: PIPERACILLIN /TAZOBACTAM 3.375 G in IV D5W 50 ML IV SCH ×4 (02:49→21:08)
--- NOTE | 2018-11-25 07:15 | NUR ---
RN CLOSING NOTES Patient asleep at this time, with O2 via NC @ 2LPM, no SOB/respiratory distress noted. All nursing needs attended. Due meds given as ordered, no ASE noted. Kept patient clean, dry and comfortable. Endorsed to the next shift.
[2018-11-25 08:00] VITALS: BP 112/52
[2018-11-25 08:20] LABS: CALCIUM, SERUM 7.6 mg/dL (8.5-10.1); CARBON DIOXIDE 29 mmol/L (21-32); CHLORIDE 99 mmol/L (98-107); CREATININE 0.8 mg/dL (0.6-1.3); GLUCOSE 118 mg/dL (74-106); POTASSIUM 4.2 mmol/L (3.5-5.1); SODIUM SERUM 132 mmol/L (136-145); UREA NITROGEN, BLOOD 18 mg/dL (7-18)
--- NOTE | 2018-11-25 08:39 | NUR ---
WOUND CARE CONSULT WOUND CARE RECEIVED CONSULT FOR RIGHT AND LEFT BUTTOCK EXCORIATION. WOUND CARE WILL DEFER CONSULT AND TREATMENT PLANS TO PLASTIC SURGICAL TEAM WHO ARE CURRENTLY FOLLOWING THIS PATIENT. PATIENT WITH JOSE AT 12, ALL PRESSURE ULCER PREVENTION MEASURES ARE NOTED TO BE IN PLACE AT THIS TIME. WILL SEE PRN.
[2018-11-25] MEDS: LACTOBACILLUS RHAMNOSUS GG 1 EACH CAP.SPRINK PO SCH ×2 (09:26→17:06)
[2018-11-25] MEDS: AMIODARONE HCL 200 MG TABLET PO SCH (09:26)
[2018-11-25] MEDS: FUROSEMIDE 40 MG TABLET GT SCH (09:26)
[2018-11-25] MEDS: LEVOTHYROXINE SODIUM 112 MCG TABLET GT SCH (09:26)
[2018-11-25] MEDS: MEMANTINE HCL 5 MG TABLET PO SCH ×2 (09:26→17:11)
[2018-11-25] MEDS: ASPIRIN 81 MG TAB.CHEW PO SCH (09:26)
[2018-11-25] MEDS: VALPROIC ACID 250 MG/5 ML UDC GT SCH ×2 (09:26→21:08)
[2018-11-25] MEDS: DOCUSATE SODIUM 100 MG CAPSULE PO SCH ×2 (09:26→21:08)
[2018-11-25] MEDS: FERROUS SULFATE (325 MG) 325 MG/TAB TABLET PO SCH (09:26)
[2018-11-25] MEDS: CALCIUM CITRATE(CITRACAL) /VITAMIN D 1 TAB TABLET PO SCH (09:33)
[2018-11-25] MEDS: JEVITY 1.2 CAL 1,000 ML BOTTLE GT PRN ×2 (12:00→15:43)
[2018-11-25 16:00] VITALS: BP 104/58
--- NOTE | 2018-11-25 18:24 | NUR ---
M/S RN NOTES PATIENT RESTING, LYING IN BED, FAMILY AT BEDSIDE. NO RESPIRATORY DISTRESS, REFUSED NASAL CANULA, ON ROOM AIR, TOLERATING WELL, 02 STABLE. PATIENT WITH NO C/O PAIN AT THIS TIME. IV ON THE LFA #24G, INTACT AND PATENT. PATIENT'S SKIN WARM TO TOUCH. PATIENT'S NEEDS ATTENDED. BED ON LOWEST LOCKED POSITION, CALL LIGHT WITHIN REACH. WILL ENDORSE TO ONCOMING NURSE.
--- NOTE | 2018-11-25 19:30 | NUR ---
MS RN NOTES RECEIVED RESTING COMFORTABLY ON BED,A/O X1,SPEAK IVORIAN,BREATHING NON LABORED,O2 IN USED AT 2L/NC TO KEEP O2 SAT ABOVE 90%.WITH GT FEEDING OF JEVITY AT 55ML/HR RATE X 20 HOURS.NO RESIDUAL NOTED.SALINE LOCK LFA#24 INTACT AND PATENT.WILL CONTINUE TO MONITOR STATUS.
[2018-11-25 20:00] VITALS: BP 126/63
--- NOTE | 2018-11-25 20:00 | NUR ---
MS RN NOTES VANCO TROUGH RESULT IS 16,DUE VANCOMYCIN DOSE IV ADMINISTERED VIA IV PUMP.
[2018-11-25] MEDS: DONEPEZIL 5 MG TABLET PO SCH (21:08)
[2018-11-25] MEDS: ENOXAPARIN SODIUM 40 MG/0.4 ML DISP.SYRIN SQ SCH (21:11)
--- NOTE | 2018-11-26 02:00 | NUR ---
MS RN NOTES ACCIDENTALLY PULLED OUT SALINE LOCK,NEW SALINE LOCK PLACE ON LEFT WRIST #22.
--- NOTE | 2018-11-26 02:30 | NUR ---
MS RN NOTES ZOSYN IV HUNG,INFUSING VIA IV PUMP OVER THIRTY MINUTES
[2018-11-26] MEDS: PIPERACILLIN /TAZOBACTAM 3.375 G in IV D5W 50 ML IV SCH ×2 (02:45→11:10)
--- NOTE | 2018-11-26 06:24 | NUR ---
MS RN NOTES SLEEPING,BREATHING NON LABORED,O2 IN USED AT 2L/NC,O2 SAT WITH IN NORMAL LIMITS.SALINE LOCK LEFT WRIST SECURED WITH BROWN SLEEVE,PATIENT HAS TENDENCY TO PULL OUT TUBINGS.IN NO ACUTE DISTRESS.POSSIBLE D/C THIS AFTERNOON PER DR MILIAN.WILL GIVE REPORT TO WERNER SHEA FOR FERMIN.
[2018-11-26 06:50] LABS: CALCIUM, SERUM 7.8 mg/dL (8.5-10.1); CARBON DIOXIDE 29 mmol/L (21-32); CHLORIDE 97 mmol/L (98-107); CREATININE 0.7 mg/dL (0.6-1.3); GLUCOSE 79 mg/dL (74-106); SODIUM SERUM 133 mmol/L (136-145); UREA NITROGEN, BLOOD 18 mg/dL (7-18)
--- NOTE | 2018-11-26 07:50 | NUR ---
M/S RN NOTES PATIENT RESTING IN BED, NO RESPIRATORY DISTRESS NOTED, PATIENT ON NASAL CANULA O2 AT 2L. PATIENT WITH NO C/O PAIN AT THIS TIME. SKIN WARM TO TOUCH. GTF OF JEVITY INFUSING AT 55ML/HR, TOLERATING WELL. IV ACCESS SITE INTACT AND PATENT. PATIENT'S NEEDS ATTENDED. BED ON LOWEST LOCKED POSITION, CALL LIGHT WITHIN REACH. WILL CONTINUE TO MONITOR.
[2018-11-26] MEDS: VALPROIC ACID 250 MG/5 ML UDC GT SCH ×2 (09:22→21:07)
[2018-11-26] MEDS: MEMANTINE HCL 5 MG TABLET PO SCH ×2 (09:22→18:11)
[2018-11-26] MEDS: LEVOTHYROXINE SODIUM 112 MCG TABLET GT SCH (09:22)
[2018-11-26] MEDS: LACTOBACILLUS RHAMNOSUS GG 1 EACH CAP.SPRINK PO SCH ×2 (09:22→17:17)
[2018-11-26] MEDS: AMIODARONE HCL 200 MG TABLET PO SCH (09:23)
[2018-11-26] MEDS: FERROUS SULFATE (325 MG) 325 MG/TAB TABLET PO SCH (09:24)
[2018-11-26] MEDS: DOCUSATE SODIUM 100 MG CAPSULE PO SCH ×2 (09:24→21:07)
[2018-11-26] MEDS: ASPIRIN 81 MG TAB.CHEW PO SCH (09:24)
[2018-11-26] MEDS: FUROSEMIDE 40 MG TABLET GT SCH (09:24)
[2018-11-26] MEDS: CALCIUM CITRATE(CITRACAL) /VITAMIN D 1 TAB TABLET PO SCH (09:30)
[2018-11-26 09:42] VITALS: BP 117/55
[2018-11-26] MEDS: VANCOMYCIN 1 GM in IV D5W 250 ML IV SCH (14:35)
[2018-11-26] MEDS ORDERED: MEROPENEM 1 G in IV NS 0.9% 100 ML IV SCH (15:00)
[2018-11-26 16:20] VITALS: BP 103/47
[2018-11-26] MEDS ORDERED: CEFEPIME 1 GM in IV NS 0.9% 50 ML IV SCH (18:00)
--- NOTE | 2018-11-26 18:30 | NUR ---
M/S RN NOTES PATIENT SUCTIONED BY RT VIA NASAL SUCTION, PATIENT TOLERATED WELL.
--- NOTE | 2018-11-26 19:00 | NUR ---
M/S RN NOTES PATIENT RESTING IN BED, DAUGHTER AT BEDSIDE. NO RESPIRATORY DISTRESS, NO C/O PAIN. SKIN WARM TO TOUCH. IV ACCESS SITE INTACT AND PATENT. PATIENT'S NEEDS ATTENDED. BED ON LOWEST LOCKED POSITION, CALL LIGHT WITHIN REACH. WILL ENDORSE TO ONCOMING NURSE.
--- NOTE | 2018-11-26 19:30 | NUR ---
SHINGLE SHEARING MACHINE OPERATOR NOTES RECEIVED LAYING COMFORTABLY ON BED,A/O X4,SPEAK CHILEAN,OLD HD ACCES IN PLACE,NON WORKING,DRESSING INTACT AND DRY.S/P PLACEMENT OF TEMPORARY TAMMI CATH ON RIGHT GROIN FOR HD ACCESS.POTASSIUM LEVEL 7.2,AWAITING HD TREATMENT TONIGHT.SALINE LEFT WRIST#20 INTACT AND PATENT.CALL LIGHT IN REACH,NEEDS ANTICIPATED. Addendum: 11/26/18 at 2026 by WILFRED ROSENTHAL RN NOTES NOT FOR THIS PATIENT
--- NOTE | 2018-11-26 19:45 | NUR ---
ALONSO SHEA NOTES C/O PAIN ON THE RIGHT GROIN 5/10 ON PAIN SCALE.MEDICATED WITH NORCO 5/325MG BY NURSE ZAIDA,1 TAB PO GIVEN FOR MODERATE PAIN. Addendum: 11/26/18 at 2025 by WILFRED ROSENTHAL RN PAIN MANAGEMENT NOT FOR THIS PATIENT.
--- NOTE | 2018-11-26 19:55 | NUR ---
MS RN NOTES STARTED ON MAXIPIME 1GM IV ORDERED,INFUSING VIA IV PUMP OVER THIRTY MINUTES.
[2018-11-26 20:00] VITALS: BP 137/57
--- NOTE | 2018-11-26 20:00 | NUR ---
MS RN NOTES RECEIVED ON BED SLEEPING,AROUSABLE TO VERBAL STIMULI,O2 IN USED AT 2L/NC TO KEEP O2 SAT ABOVE 90%.IVF AT TKO RATE IN PROGRESS ON LEFT WRIST SALINE LOCK.VISITOR AT BEDSIDE.CALL LIGHT IN REACH,NEEDS ANTICIPATED.
[2018-11-26] MEDS: DONEPEZIL 5 MG TABLET PO SCH (21:07)
[2018-11-26] MEDS: ENOXAPARIN SODIUM 40 MG/0.4 ML DISP.SYRIN SQ SCH (21:07)
--- NOTE | 2018-11-26 22:30 | NUR ---
MS RN NOTES REPOSITION PER PROTOCOL.DUE MEDS GIVEN VIA GT,HOB ELEVATED FOR ASPIRATION PRECAUTION.
--- NOTE | 2018-11-27 06:33 | NUR ---
MS RN NOTES NO SIGNIFICANT CHANGE IN STATUS,GT FEEDING TOLERATED WELL.NO N/V/D NOTED.D/C PLAN BACK TO SNF.WILL ENDORSE TO RADHA SHEA FOR FERMIN.
[2018-11-27 07:26] LABS: CARBON DIOXIDE 32 mmol/L (21-32); CHLORIDE 95 mmol/L (98-107); CREATININE 0.7 mg/dL (0.6-1.3); GLUCOSE 105 mg/dL (74-106); POTASSIUM 3.8 mmol/L (3.5-5.1); SODIUM SERUM 130 mmol/L (136-145); UREA NITROGEN, BLOOD 20 mg/dL (7-18)
[2018-11-27] MEDS ORDERED: IPRATROPIUM NEB FS 0.5 MG/2.5 ML AMPUL.NEB NEB ONE (07:30)
[2018-11-27] MEDS: ALBUTEROL FS 2.5 MG/0.5 ML VIAL.NEB NEB SCH ×3 (07:35→15:30)
--- NOTE | 2018-11-27 07:59 | NUR ---
M/S RN OPENING NOTES RECEIVED PATIENT ON BED, A/O X 1 AND DIVEHI SPEAKING. RESPIRATION EVEN AND NON LABORED WITH NO ACUTE RESPIRATORY DISTRESS. ABD SOFT AND NON DISTENDED WITH ACTIVE BOWEL SOUNDS. SKIN WARM TO TOUCH AND DRY. NO S/SX OF PAIN AND DISCOMFORT. IV SITE AT LEFT WRIST AND PATENT IN FLUSHING. PLACED CALL LIGHT WITHIN REACH, WILL CONTINUE TO MONITOR CARE.
[2018-11-27 08:19] VITALS: BP 116/43
[2018-11-27 08:59] VITALS: BP 116/43
[2018-11-27] MEDS: DOCUSATE SODIUM 100 MG CAPSULE PO SCH (08:59)
[2018-11-27] MEDS: FERROUS SULFATE (325 MG) 325 MG/TAB TABLET PO SCH (08:59)
[2018-11-27] MEDS: LEVOTHYROXINE SODIUM 112 MCG TABLET GT SCH (08:59)
[2018-11-27] MEDS: VALPROIC ACID 250 MG/5 ML UDC GT SCH (08:59)
[2018-11-27] MEDS: FUROSEMIDE 40 MG TABLET GT SCH (08:59)
[2018-11-27] MEDS: MEMANTINE HCL 5 MG TABLET PO SCH (08:59)
[2018-11-27] MEDS: ASPIRIN 81 MG TAB.CHEW PO SCH (08:59)
[2018-11-27] MEDS: AMIODARONE HCL 200 MG TABLET PO SCH (08:59)
[2018-11-27] MEDS: LACTOBACILLUS RHAMNOSUS GG 1 EACH CAP.SPRINK PO SCH (08:59)
[2018-11-27] MEDS: CALCIUM CITRATE(CITRACAL) /VITAMIN D 1 TAB TABLET PO SCH (09:00)
--- NOTE | 2018-11-27 12:04 | NUR ---
M/S RN NOTES GAVE REPORT TO DENIA SHEA FROM [facility] FOR PT DC. METEOROLOGICAL OBSERVER TIME 1PM ENDORSED. PT TO GO TO 20D ROOM.
--- NOTE | 2018-11-27 12:55 | NUR ---
M/S RN NOTES TRANSPORTATION CALLED. WILL BE 1-2 HOURS LATE FOR I O PSYCHOLOGIST.
--- NOTE | 2018-11-27 13:15 | NUR ---
M/S RN NOTES CALLED [facility] (GRAND DAUGHTER) FOR PT DISCHARGE.
[2018-11-27] MEDS: JEVITY 1.2 CAL 1,000 ML BOTTLE GT PRN (13:33)
--- NOTE | 2018-11-27 15:35 | NUR ---
M/S USER EXPERIENCE ARCHITECT NOTES PATIENT LEFT VIA GURNEY WITH 2 MALE LITERACY TUTOR FROM [facility]. A/O X 1, RESPIRATION EVEN AND NON LABORED WITH NO ACUTE RESPIRATORY DISTRESS. SKIN WARM TO TOUCH AND DRY, SACRAL REDNESS WITH OPEN SKIN BREAKDOWN NOTED, TREATMENT PROVIDED ORDERED. ABDOMEN SOFT AND NON DISTENDED WITH ACTIVE BOWEL SOUNDS, ABLE TO DO BM TODAY. LEFT WRIST IV ACCESS FOR CONTINUOUS OF ATB KEPT, PATENT IN FLUSHING. SITE WITH NO S/SX OF INFILTRATION. EXIT CARE GIVEN TO DENIA SHEA AT [facility]. ALL CONCERNS ATTENDED. PATIENT LEFT IN STABLE AND SAFE CONDITION.
== END 2018-11-27 15:35 | DRG 137 ==
LOC: ER 10:39 → MED 13:43
PROVIDERS: ADMIT Internal Medicine; ATTEND Internal Medicine
DX: J15.1 Pneumonia due to Pseudomonas (principal); J96.01 Acute respiratory failure with hypoxia; E43 Unspecified severe protein-calorie malnutrition; I50.33 Acute on chronic diastolic (congestive) heart failure; G93.41 Metabolic encephalopathy; L89.313 Pressure ulcer of right buttock, stage 3; D68.59 Other primary thrombophilia; R13.10 Dysphagia, unspecified; I11.0 Hypertensive heart disease with heart failure; F03.90 Unspecified dementia, unspecified severity, without behavioral disturbance, psychotic disturbance, mood disturbance, and anxiety; I48.91 Unspecified atrial fibrillation; E87.1 Hypo-osmolality and hyponatremia; D50.9 Iron deficiency anemia, unspecified; E03.9 Hypothyroidism, unspecified; Z68.27 Body mass index [BMI] 27.0-27.9, adult; N39.0 Urinary tract infection, site not specified; B96.89 Other specified bacterial agents as the cause of diseases classified elsewhere; I25.10 Atherosclerotic heart disease of native coronary artery without angina pectoris
CPT/HCPCS: 36415; 36600; 71045-TC; 80048-TC; 80053-TC; 80061-TC; 80076-TC; 80202-TC; 81000-TC; 82803-TC; 82962-TC; 83605-TC; 83735-TC; 84100-TC; 84484-TC; 85025-TC; 85730-TC; 87040-TC; 87070-TC; 87081-TC; 87086-TC; 87186-TC; 92526; 92611-TC; 94640-TC; 94799-TC; A4216; G0378; J0692; J1650; J2185; J2543; J3370; J7030; J7060

== ENCOUNTER 2019-03-01 09:06 | Emergency (ER) | payer OTHER ==
[~2019-03-01] VITALS: Ht 160 cm; Wt 66.2 kg
[~2019-03-01 09:06] MED LIST changes: +ACET325T53 GT; -ACET325T53 PO; -ALBUT2 NEB; +AMIO200T4 GT; -AMIO200T4 PO; +ASPI-1169 GT; -ASPI-1169 PO; +BISA10SU61 RC; -CALC-261 PO; +CALC-36 GT; -CRAN450C PO; -DEXT15DR6 EACHEYE; -DIVA125C2 PO; +DOCU-141 PO; +DONE10TA44 GT; -DONE10TA44 PO; -IPRA0.2S9 NEB; -IPRA3AMP22 IH; +LEVO112T5 GT; -LEVO112T7 PO; -MAG30ORA PO; +MAGN400O6 GT; +MEMA10TA GT; -MEMA10TA PO; +MEMA5TAB GT; -MEMA5TAB PO; -MERO500V IV; -MUPI22OI7; +NA P133E RC; -OMEG1CAP18 PO; -ONDA4VIA23 IVP; -Prosource GT
--- NOTE | 2019-03-01 09:09 | NUR ---
PT BIBA Unit [address] [facility] "GT detachment", PT IS AAOX3, NOT IN RESPIRATORY DISTRESS, HOOKED TO MONITOR, KEPT RESTED AND COMFORTABLE, WILL CONTINUE TO MONITOR. AWAITING ER MD FOR EVAL.
[2019-03-01] MEDS ORDERED: L. A1CAP11 GT (09:46)
[2019-03-01] MEDS ORDERED: HYDR28.32 TP (09:46)
[2019-03-01] MEDS ORDERED: DOCU50LI GT (09:46)
[2019-03-01] MEDS ORDERED: ALBU2.5V38 IH (09:46)
[2019-03-01] MEDS ORDERED: DIVA125C2 GT (09:46)
--- NOTE | 2019-03-01 09:50 | NUR ---
G TUBE REPLACED BY .
[2019-03-01] MEDS ORDERED: DIATR MEGLU/DIATRIZOATE SODIUM 30 ML BOTTLE (GASTROGRAPHIN) ONE (09:51)
--- NOTE | 2019-03-01 10:00 | NUR ---
APPLICATION COUNSELOR AT BEDSIDE FOR XRAY.
--- NOTE | 2019-03-01 10:00 | NUR ---
CALLED CALL THE CAR FOR AMBULANCE TRANSFER. ETA 1-3 HRS. SCHEDULE ID [id number].
--- NOTE | 2019-03-01 10:07 | NUR ---
CALL THE CAR CALLED BACK AND IT WILL BE [facility] PICKING UP PATIENT. ETA [phone].
--- NOTE | 2019-03-01 10:29 | NUR ---
SPOKED TO [facility], REPORT GIVEN.
--- NOTE | 2019-03-01 11:03 | NUR ---
ABDOMINAL BINDER APPLIED.
--- NOTE | 2019-03-01 11:17 | NUR ---
[facility] CALLED WITH UPDATED ETA OF 1215.
--- NOTE | 2019-03-01 12:11 | NUR ---
REPORT GIVEN TO EMT FOR PT TRANSPORT BACK TO [facility].
[2019-03-01 12:12] VITALS: BP 134/54
== END 2019-03-01 12:13 ==
LOC: ER 09:08
DX: K94.23 Gastrostomy malfunction (principal); F03.90 Unspecified dementia, unspecified severity, without behavioral disturbance, psychotic disturbance, mood disturbance, and anxiety; I10 Essential (primary) hypertension; I48.91 Unspecified atrial fibrillation; I25.10 Atherosclerotic heart disease of native coronary artery without angina pectoris; K21.9 Gastro-esophageal reflux disease without esophagitis; Z87.440 Personal history of urinary (tract) infections; Z98.890 Other specified postprocedural states; Z91.012 Allergy to eggs; Z79.82 Long term (current) use of aspirin
CPT/HCPCS: 43762; 74018; 99284; Q9963

== ENCOUNTER 2019-03-01 21:33 | Emergency (ER) | payer OTHER ==
[~2019-03-01] VITALS: Ht 162.6 cm; Wt 65.3 kg
[~2019-03-01 21:33] MED LIST changes: +ALBU2.5V38 IH; +DIVA125C2 GT; +DOCU50LI GT; +HYDR28.32 TP; +L. A1CAP11 GT
--- NOTE | 2019-03-01 21:45 | NUR ---
PT BIBPA FROM SNF C/O BRUISE ON R EYE. PER FAMILY, BRUISING WAS NOTICED AROUND X7HR QA SOFTWARE TEST ENGINEER, UNKNOWN IF ANY TRAUMA. NOTED DISCOLORATION, SKIN INTACT. PT AWAKE, DOZING INTERMITTENTLY. NO ACUTE DISTRESS NOTED AT THIS TIME. WILL CONTINUE TO MONITOR.
--- NOTE | 2019-03-01 22:00 | NUR ---
BROUGHT BY RADIOLOGY TO CT
--- NOTE | 2019-03-01 22:04 | NUR ---
PT RETURNED FROM CT
--- NOTE | 2019-03-01 23:14 | NUR ---
CALLED [facility] FOR TRANSPORT ETA OF [phone] WAS GIVEN. TRIP#[id number]
--- NOTE | 2019-03-01 23:23 | NUR ---
CALLED [facility] FOR [place] ETA OF 0015 WAS GIVEN.
--- NOTE | 2019-03-01 23:49 | NUR ---
CALLED [facility] AND SPOKE WITH JEANETH SHEA. INFORMED PT IS RETURNING TO FACILITY
--- NOTE | 2019-03-02 00:13 | NUR ---
GAVE REPORT TO [place] [id number] FOR TRANSPORTATION FERMIN
[2019-03-02 00:14] VITALS: BP 110/42
== END 2019-03-02 00:14 | disposition home or self-care (01) ==
LOC: ER 21:37
DX: S05.11XA Contusion of eyeball and orbital tissues, right eye, initial encounter (principal); S09.8XXA Other specified injuries of head, initial encounter; F03.90 Unspecified dementia, unspecified severity, without behavioral disturbance, psychotic disturbance, mood disturbance, and anxiety; I10 Essential (primary) hypertension; I48.91 Unspecified atrial fibrillation; K21.9 Gastro-esophageal reflux disease without esophagitis; Z87.440 Personal history of urinary (tract) infections; Z98.890 Other specified postprocedural states; Z91.012 Allergy to eggs; Z79.899 Other long term (current) drug therapy; Z79.82 Long term (current) use of aspirin; X58.XXXA Exposure to other specified factors, initial encounter; Y93.89 Activity, other specified; Y92.89 Other specified places as the place of occurrence of the external cause; Y99.8 Other external cause status
CPT/HCPCS: 70450-TC; 70486-TC

== ENCOUNTER 2019-04-11 15:00 | Inpatient (IN) | payer OTHER ==
[~2019-04-11] VITALS: Ht 162.6 cm; Wt 59.0 kg
[~2019-04-11 15:00] MED LIST changes: -DOCU-141 PO; -FERR325T23 PO; -LACT-209 GT; -VALP250S22 GT
--- NOTE | 2019-04-11 15:10 | NUR ---
DILMA, FROM [facility], C/O WEAKNESS x 2 DAYS, CXR RESULT CHF, AND R LUNG INFILTRATE. TO ER BED 9, HOOKED TO MONITOR, PATIENT BASELINE AOx1, BREATHING EVEN AND UNLABORED. CHANGED TO [facility], PROVIDED W WARM BLANKET, AWAITING MD JOHNSON.
--- NOTE | 2019-04-11 15:20 | NUR ---
DR CHAUDHARY AT BEDSIDE
--- NOTE | 2019-04-11 15:50 | NUR ---
URINE SAMPLE COLLECTED VIA STRAIGHT CATH, SENT SAMPLE TO LAB
[2019-04-11 15:53] LABS: BASOPHILS # (AUTO) 0.1 /CMM (0.0-0.2); BASOPHILS % (AUTO) 0.7 % (0.0-2.0); EOSINOPHILS % (AUTO) 15.3 % (0.0-6.0); HEMATOCRIT 33 % (33-45); HEMOGLOBIN 10.9 g/dL (11.5-14.8); LYMPHOCYTES # (AUTO) 1.7 /CMM (0.8-4.8); LYMPHOCYTES % (AUTO) 22.5 % (20.0-44.0); MEAN CORPUSCULAR HGB CONC 33 g/dl (31.0-36.0); MEAN CORPUSCULAR VOLUME 86 fL (82-100); MONOCYTES # (AUTO) 0.6 /CMM (0.1-1.30); MONOCYTES % (AUTO) 7.8 % (2.0-12.0); NEUTROPHILS % (AUTO) 53.7 % (43.0-81.0); PLATELET COUNT (AUTO) 296 /CMM (150-450); RED BLOOD CELL COUNT(AUTO) 3.84 MIL/uL (4.0-5.2); WHITE BLOOD COUNT (AUTO) 7.4 K/uL (4.3-11.0)
[2019-04-11 15:56] LABS: APPEARANCE,URINE Clear (CLEAR); BILIRUBIN,URINE Negative (NEGATIVE); BLOOD, URINE Trace-lysed Ery/uL (NEGATIVE); COLOR,URINE Yellow (YELLOW); KETONES,URINE Negative (NEGATIVE); NITRITE, URINE Negative (NEGATIVE); PROTEIN,URINE Negative (NEGATIVE); UGLUCOSE Negative (NEGATIVE)
[2019-04-11 16:22] LABS: CARBON DIOXIDE 24 mmol/L (21-32); CHLORIDE 95 mmol/L (98-107); GLUCOSE 101 mg/dL (74-106); POTASSIUM 4.5 mmol/L (3.5-5.1); SODIUM SERUM 127 mmol/L (136-145)
[2019-04-11 16:23] LABS: CREATININE 0.9 mg/dL (0.6-1.3); UREA NITROGEN, BLOOD 13 mg/dL (7-18)
[2019-04-11 16:32] LABS: BACTERIA,URINE Few /HPF (None Seen); RBC,URINE 0-2 /HPF (0-2); SQUAMOUS EPITHELIAL CELL,UR Few /HPF (None Seen)
[2019-04-11 16:33] LABS: LEUKOCYTE ESTERASE ,URINE TRACE (NEGATIVE)
[2019-04-11 16:46] LABS: ALANINE AMINOTRANSFERASE 9 U/L (12-78); ALBUMIN 2.6 g/dL (3.4-5.0); ALKALINE PHOSPHATASE 85 U/L (46-116); ASPARTATE AMINOTRANSFERASE 18 U/L (15-37); B-TYPE NATRIURETIC PEPTIDE 866 PG/ML (0-125); BILIRUBIN,DIRECT 0.1 mg/dL (0.0-0.2); BILIRUBIN,TOTAL 0.2 mg/dL (0.2-1.0); TOTAL PROTEIN, SERUM 7.9 g/dL (6.4-8.2)
[2019-04-11] MEDS ORDERED: PANT40TA4 PO (17:24)
[2019-04-11] MEDS ORDERED: SENN-175 GT (17:24)
[2019-04-11] MEDS ORDERED: ENOX40DI SQ (17:24)
[2019-04-11] MEDS ORDERED: CHOL100040 PO (17:24)
[2019-04-11] MEDS ORDERED: VALP250S22 GT (17:24)
[2019-04-11] MEDS ORDERED: VANCOMYCIN 1 GM in IV D5W 250 ML IV ONE (17:30)
[2019-04-11] MEDS ORDERED: CEFEPIME 1 GM in IV D5W 50 ML IV SCH (17:30)
--- NOTE | 2019-04-11 17:30 | NUR ---
MS RN NOTES RECEIVED PATIENT HAND OFF FROM [facility]. PATIENT IN BED, ALERT ORIENTED X 1. 2 DAUGHTERS AT BEDSIDE. BREATHING EVEN AND UNLABORED. IV LEFT HAND IV 20G, CLEAN, DRY AND INTACT. SHOW NO SIGNS OF INFILTRATION, NO REDNESS. GTUBE PLACEMENT AUSCULTATED, CLEAN, DRY, AND FLUSHED. SAFETY PRECAUTION IN PLACE. BED IN LOWEST POSITION, LOCKED, CALL LIGHT KEPT WITHIN REACH. WILL CONTINUE TO MONITOR. Addendum: 04/12/19 at 0027 by BILL DE PAZ RN WRONG TIME ENTER, RECEIVED PATIENT [phone]
--- NOTE | 2019-04-11 18:06 | NUR ---
EPIC PAGED for panel call
--- NOTE | 2019-04-11 18:07 | NUR ---
panel call in progress
--- NOTE | 2019-04-11 18:11 | NUR ---
DAUGHTERS AT BEDSIDE: FERNANDO RUIZ [phone] TIM ALCANTAR [phone]
--- NOTE | 2019-04-11 18:15 | NUR ---
spoke to rn sup waiting for bed assignment
--- NOTE | 2019-04-11 18:37 | NUR ---
REPORT GIVEN TO PANTERA SHEA OF TELE UNIT
[2019-04-11 19:30] VITALS: BP 153/70
[2019-04-11] MEDS ORDERED: MAGNESIUM HYDROXIDE 30 ML UDC GT PRN ×2 (19:30→20:33)
[2019-04-11] MEDS ORDERED: BISACODYL SUPP (10 MG) 10 MG/SUPP.RECT SUPP.RECT RC PRN (19:30)
[2019-04-11] MEDS ORDERED: ALBUTEROL FS 2.5 MG/3 ML VIAL.NEB IH PRN (19:30)
[2019-04-11] MEDS ORDERED: HYDROCODONE/APAP 5/325MG 1 EACH TABLET PO PRN (19:30)
[2019-04-11] MEDS ORDERED: MAGNESIUM HYDROXIDE 30 ML UDC PO PRN (19:30)
[2019-04-11] MEDS ORDERED: ZOLPIDEM TARTRATE 5 MG TABLET PO PRN (19:30)
[2019-04-11] MEDS ORDERED: ACETAMINOPHEN 325 MG TABLET PO PRN ×2 (19:30)
[2019-04-11] MEDS ORDERED: MAG HYDROX/AL HYDROX/SIMETH 30 ML UDC PO PRN (19:30)
[2019-04-11] MEDS ORDERED: FUROSEMIDE 20 MG/2 ML VIAL IV SCH (19:30)
[2019-04-11] MEDS ORDERED: NA PHOS,M-B/NA PHOS,DI-BA 1 EA ENEMA RC PRN (19:30)
[2019-04-11] MEDS ORDERED: ONDANSETRON HCL/PF 4 MG/2 ML VIAL IVP PRN (19:30)
[2019-04-11] MEDS ORDERED: SENNOSIDES 8.6 MG TABLET GT PRN (19:30)
[2019-04-11] MEDS ORDERED: Z GUARD REMEDY 2 OZ OINT TP PRN (19:30)
[2019-04-11] MEDS ORDERED: CHOLECALCIFEROL (VITAMIN D 3) 400 UNIT TABLET PO SCH (19:30)
[2019-04-11 20:00] VITALS: BP 155/70
[2019-04-11] MEDS ORDERED: PHARMACY TO CHANGE PO MEDS TO GT/NG XX PRN (20:30)
[2019-04-11] MEDS ORDERED: MAG HYDROX/AL HYDROX/SIMETH 30 ML UDC GT PRN (20:32)
[2019-04-11] MEDS ORDERED: ZOLPIDEM TARTRATE 5 MG TABLET GT PRN (20:32)
[2019-04-11] MEDS ORDERED: HYDROCODONE/APAP 5/325MG 1 EACH TABLET GT PRN (20:33)
[2019-04-11] MEDS: ALBUTEROL HALF STRENGTH 1.25 MG/3 ML VIAL.NEB NEB SCH (20:53)
[2019-04-11] MEDS ORDERED: ACETAMINOPHEN 650 MG/20.3 ML UDC PO PRN (21:00)
[2019-04-11] MEDS: CALCIUM CARB 600MG /VIT D 1 EACH TABLET GT SCH (21:24)
[2019-04-11] MEDS: DOCUSATE SODIUM LIQ 100 MG/10 ML UDC GT SCH (21:24)
[2019-04-11] MEDS: DONEPEZIL 5 MG TABLET GT SCH (21:25)
[2019-04-11] MEDS: LEVOFLOXACIN 750 MG /D5W 150ML 750 MG in PREMIX 1 EA IV SCH (21:25)
[2019-04-12 00:01] VITALS: BP 131/87
[2019-04-12 04:00] VITALS: BP 151/56
--- NOTE | 2019-04-12 06:19 | NUR ---
CROWNING INSPECTOR NOTES PATIENT IN BED, ASLEEP, ALERT AND ORIENTED X 1. BREATHING EVEN AND UNLABORED, ON ROOM AIR. DISPLAYS NO SIGNS OF ACUTE RESPIRATORY DISTRESS, NO ACUTE PAIN. IV ON LEFT HAND #20 SL, CLEAN DRY AND INTACT. SHOWS NO SIGNS OF REDNESS, NO INFILTRATION. G-TUBE IS CLEAN, DRY, AND FLUSHED. ATTENDED TO PATIENTS NEEDS. SAFETY PRECAUTION IN PLACE. BED IN LOWEST POSITION LOCKED, AND CALL LIGHT KEPT WITHIN REACH. WILL ENDORSE TO ONCOMING NURSE.
[2019-04-12] MEDS ORDERED: LEVOTHYROXINE SODIUM 112 MCG TABLET GT SCH (07:30)
--- NOTE | 2019-04-12 07:30 | NUR ---
ESTHETICIAN SPA OPENING NOTES PATIENT SLEEPING IN BED, BUT EASY TO AWAKEN. A&O X 1-2. PRIMARY LANGUAGE IS GABONESE. ON ROOM AIR. IV PRESENT ON LEFT HAND SIZE 20. GTUBE PRESENT, USED FOR MEDS. VITAL SIGNS - BP: 152/68 HR: 69 RR: 18 TEMP: 99.3, PATIENT REFUSED TO HAVE SPO2 CHECKED. PATIENT CALL LIGHT WITHIN REACH. WILL CONTINUE TO MONITOR.
[2019-04-12 07:46] LABS: BASOPHILS # (AUTO) 0.1 /CMM (0.0-0.2); BASOPHILS % (AUTO) 0.5 % (0.0-2.0); EOSINOPHILS % (AUTO) 8.8 % (0.0-6.0); HEMATOCRIT 35 % (33-45); HEMOGLOBIN 11.8 g/dL (11.5-14.8); LYMPHOCYTES # (AUTO) 1.4 /CMM (0.8-4.8); LYMPHOCYTES % (AUTO) 13.2 % (20.0-44.0); MEAN CORPUSCULAR HGB CONC 34 g/dl (31.0-36.0); MEAN CORPUSCULAR VOLUME 85 fL (82-100); MONOCYTES # (AUTO) 1.1 /CMM (0.1-1.30); MONOCYTES % (AUTO) 10.2 % (2.0-12.0); NEUTROPHILS % (AUTO) 67.3 % (43.0-81.0); PLATELET COUNT (AUTO) 295 /CMM (150-450); RED BLOOD CELL COUNT(AUTO) 4.12 MIL/uL (4.0-5.2); WHITE BLOOD COUNT (AUTO) 10.5 K/uL (4.3-11.0)
[2019-04-12 07:56] LABS: CALCIUM, SERUM 8.5 mg/dL (8.5-10.1); CREATININE 0.8 mg/dL (0.6-1.3); MAGNESIUM 1.8 mg/dL (1.8-2.4); PHOSPHORUS 3.6 mg/dL (2.5-4.9); POTASSIUM 3.9 mmol/L (3.5-5.1)
[2019-04-12 08:00] VITALS: BP 118/56
[2019-04-12] MEDS: ALBUTEROL HALF STRENGTH 1.25 MG/3 ML VIAL.NEB NEB SCH ×4 (08:05→19:40)
[2019-04-12] MEDS ORDERED: MEMANTINE HCL 5 MG TABLET GT SCH (09:00)
[2019-04-12] MEDS ORDERED: PANTOPRAZOLE 40 MG TABLET.DR PO SCH (09:00)
[2019-04-12 09:19] LABS: THYROID STIMULATING HORMONE 1.988 uIU/mL (0.358-3.74)
[2019-04-12] MEDS: VALPROIC ACID 250 MG/5 ML UDC GT SCH ×3 (09:50→17:46)
[2019-04-12] MEDS: ENOXAPARIN SODIUM 40 MG/0.4 ML DISP.SYRIN SQ SCH (09:50)
[2019-04-12] MEDS: PANTOPRAZOLE 40 MG/PACK PACK NG SCH (09:51)
[2019-04-12] MEDS: ASPIRIN 81 MG TAB.CHEW GT SCH (09:51)
[2019-04-12] MEDS: DOCUSATE SODIUM LIQ 100 MG/10 ML UDC GT SCH ×2 (09:51→21:49)
[2019-04-12] MEDS: AMIODARONE HCL 200 MG TABLET GT SCH (09:52)
[2019-04-12] MEDS: CALCIUM CARB 600MG /VIT D 1 EACH TABLET GT SCH (09:53)
[2019-04-12] MEDS: CHOLECALCIFEROL (VITAMIN D 3) 400 UNIT TABLET GT SCH (09:54)
--- NOTE | 2019-04-12 12:20 | NUR ---
PROFESSIONAL ADVISOR NOTES PATIENT COMPLAINING OF RIGHT ELBOW PAIN RATED 5/10. BAM MADE AWARE AND ORDERED RIGHT ELBOW XRAY. WILL CARRY OUT ORDER. Addendum: 04/12/19 at 1223 by PANTERA LOPEZ RN WRONG PATIENT
[2019-04-12] MEDS: CLOTRIMAZOLE 1% 15 GM TUBE TP SCH ×2 (15:29→17:48)
[2019-04-12] MEDS: HYDROGEL DRESSING 90 GM TUBE TP SCH (15:30)
[2019-04-12 16:00] VITALS: BP 118/53
--- NOTE | 2019-04-12 18:17 | NUR ---
MS RN CLOSING NOTES PATIENT AWAKE IN BED. TOLERATED DINNER WELL, ATE >75% OF MEAL WITH ASSIST. VITAL SIGNS - BP: 118/50 HR: 74 RR: 20 TEMP: 97.6 SPO2: 93. NO S/S OF ACUTE RESPIRATORY DISTRESS OR COMPLAINTS OF PAIN. PATIENT CALL LIGHT WITHIN REACH. WILL ENDORSE TO PERFORATOR LOADER NURSE TO FOLLOW PLAN OF CARE.
--- NOTE | 2019-04-12 19:00 | NUR ---
RN MS OPENING NOTES RECEIVED PATIENT IN BED AWAKE ALERT AND ORIENTED X1, VERBALLY RESPONSIVE, ABLE TO FOLLOW SIMPLE DIRECTIONS, RESPIRATIONS EVEN AND UNLABORED WITH EQUAL RISE AND FALL OF CHEST, DENIES ANY PAIN OR DISCOMFORT AT THIS TIME, IV SITE TO LEFT HAND #20 G INTACT AND PATENT, NO REDNESS, NO INFILTRATION PRESENT, HEAD OF BED ELEVATED FOR ASPIRATION PRECAUTIONS GTUBE IN PLACE AND INTACT, WITH PROPER PLACEMENT, SAFETY PRECAUTIONS IN PLACE, LOW BED AND LOCKED ALL NEEDS ATTENDED AT THIS TIME, WILL CONTINUE TO MONITOR AND ATTEND TO NEEDS, BED ALARM IN PLACE.
[2019-04-12 19:30] VITALS: BP 113/55
[2019-04-12 19:48] VITALS: BP 113/55
[2019-04-12] MEDS: LEVOFLOXACIN 750 MG /D5W 150ML 750 MG in PREMIX 1 EA IV SCH (20:07)
[2019-04-12] MEDS: DONEPEZIL 5 MG TABLET GT SCH (21:49)
[2019-04-13 00:42] VITALS: BP 130/57
--- NOTE | 2019-04-13 06:43 | NUR ---
RN MS CLOSING NOTES PATIENT IN BED AWAKE ALERT AND ORIENTED X1, VERBALLY RESPONSIVE, ABLE TO FOLLOW SIMPLE DIRECTIONS, RESPIRATIONS EVEN AND UNLABORED WITH EQUAL RISE AND FALL OF CHEST, DENIES ANY PAIN OR DISCOMFORT AT THIS TIME, IV SITE TO LEFT ARM #22 G INTACT AND PATENT, NO REDNESS, NO INFILTRATION PRESENT, HEAD OF BED ELEVATED FOR ASPIRATION PRECAUTIONS GTUBE IN PLACE AND INTACT, WITH PROPER PLACEMENT, SAFETY PRECAUTIONS IN PLACE, LOW BED AND LOCKED ALL NEEDS ATTENDED AT THIS TIME, WILL CONTINUE TO MONITOR AND ATTEND TO NEEDS, BED ALARM IN PLACE. ALL DUE MEDICATION GIVEN, NO ADVERSE REACTIONS. REPOSITIONED Q2HR FOR WOUND AND SKIN MANAGEMENT. DRESSING REMAIN INTACT. WILL ENDORSE TO NEXT SHIFT
[2019-04-13 06:48] LABS: BASOPHILS % (AUTO) 0.5 % (0.0-2.0); HEMATOCRIT 34 % (33-45); HEMOGLOBIN 11.1 g/dL (11.5-14.8); LYMPHOCYTES # (AUTO) 1.8 /CMM (0.8-4.8); LYMPHOCYTES % (AUTO) 18.7 % (20.0-44.0); MEAN CORPUSCULAR HGB CONC 33 g/dl (31.0-36.0); MEAN CORPUSCULAR VOLUME 85 fL (82-100); MONOCYTES # (AUTO) 1.1 /CMM (0.1-1.30); MONOCYTES % (AUTO) 11.7 % (2.0-12.0); NEUTROPHILS # (AUTO) 5.7 /CMM (1.8-8.9); NEUTROPHILS % (AUTO) 59.1 % (43.0-81.0); PLATELET COUNT (AUTO) 272 /CMM (150-450); RED BLOOD CELL COUNT(AUTO) 3.98 MIL/uL (4.0-5.2); WHITE BLOOD COUNT (AUTO) 9.6 K/uL (4.3-11.0)
[2019-04-13 06:53] LABS: CALCIUM, SERUM 8.2 mg/dL (8.5-10.1); MAGNESIUM 1.8 mg/dL (1.8-2.4); PHOSPHORUS 4.3 mg/dL (2.5-4.9); POTASSIUM 3.9 mmol/L (3.5-5.1)
[2019-04-13 06:54] LABS: THYROID STIMULATING HORMONE 1.897 uIU/mL (0.358-3.74)
--- NOTE | 2019-04-13 07:10 | NUR ---
MS RN NOTES PATIENT IN BED EYES CLOSED EASY TO AROUSE, RESPOND TO VERBAL AND TACTILE STIMULI. NO ACUTE DISTRESS NOTED, BREATHING UNLABORED. SAFETY MEASURES IN PLACE. CALL LIGHT WITHIN REACH. WILL CONTINUE TO MONITOR ACCORDINGLY.
[2019-04-13] MEDS: ALBUTEROL HALF STRENGTH 1.25 MG/3 ML VIAL.NEB NEB SCH ×5 (07:35→20:23)
[2019-04-13 08:00] VITALS: BP 120/58
[2019-04-13] MEDS: CHOLECALCIFEROL (VITAMIN D 3) 400 UNIT TABLET GT SCH (09:33)
[2019-04-13] MEDS: PANTOPRAZOLE 40 MG/PACK PACK NG SCH (09:33)
[2019-04-13] MEDS: ENOXAPARIN SODIUM 40 MG/0.4 ML DISP.SYRIN SQ SCH (09:33)
[2019-04-13] MEDS: DOCUSATE SODIUM LIQ 100 MG/10 ML UDC GT SCH ×2 (09:34→20:48)
[2019-04-13] MEDS: VALPROIC ACID 250 MG/5 ML UDC GT SCH ×3 (09:34→16:27)
[2019-04-13] MEDS: AMIODARONE HCL 200 MG TABLET GT SCH (09:34)
[2019-04-13] MEDS: CALCIUM CARB 600MG /VIT D 1 EACH TABLET GT SCH (09:35)
[2019-04-13] MEDS: ASPIRIN 81 MG TAB.CHEW GT SCH (09:35)
--- NOTE | 2019-04-13 09:37 | NUR ---
WOUND CARE CONSULT: PT FOLLOWED BY PODIATRY AND PLASTIC SURGERY TEAMS FOR WOUND CARE. DEFER TO SURGICAL TEAMS FOR WOUND TREATMENT PLAN. WILL SEE PRN. DISCUSSED SKIN PROTECTION WITH NURSING STAFF. CURRENT JOSE SCORE IS 14.
[2019-04-13] MEDS: HYDROGEL DRESSING 90 GM TUBE TP SCH (09:47)
[2019-04-13] MEDS: CLOTRIMAZOLE 1% 15 GM TUBE TP SCH ×2 (09:47→16:28)
[2019-04-13 16:00] VITALS: BP 123/52
--- NOTE | 2019-04-13 18:46 | NUR ---
MS RN NOTES RECEIVED DIETARY RECOMMENDATIONS FOR Prostat 30 ML GT TID, Vitamin C 500 MG GT DAILY AND MULTIVITAMINS W/MINERALS 1 TAB TABLET 1 TAB GT DAILY , RELAYED TO DR BEEBE , AGREED TO RECOMENDATIONS AND ORDERED. NOTED AND CARRIED OUT. DR BAUTISTA ALSO AWARE OF WOUND CONSULT DEFER TO MD PODIATRY AND SURGERY TEAM.
--- NOTE | 2019-04-13 19:00 | NUR ---
MS RN NOTES PATIENT IN BED ALERT ORIENTED X 1. NO ACUTE DISTRESS NOTED, BREATHING UNLABORED.NO SOB NOTED. SAFETY MEASURES IN PLACE. CALL LIGHT WITHIN REACH. WILL ENDORSE TO NIGHT NURSE FOR CONTINUITY OF CARE.
--- NOTE | 2019-04-13 19:46 | NUR ---
MS RN OPENING NOTES: RECEIVED PATIENT IN BED AWAKE ALERT AND ORIENTED X1, EASY TO AROUSE WITH VERBAL AND TACTILE STIMULI. VERBALLY RESPONSIVE, ABLE TO FOLLOW SIMPLE DIRECTIONS, RESPIRATIONS EVEN AND UNLABORED. NO SOB NOTED. NO S/S OF ACUTE DISTRESS. DENIES ANY PAIN OR DISCOMFORT AT THIS TIME, IV SITE TO LEFT HAND #20 G INTACT AND PATENT, NO REDNESS, NO INFILTRATION PRESENT, HEAD OF BED ELEVATED FOR ASPIRATION PRECAUTIONS. G-TUBE IN PLACE AND INTACT, WITH PROPER PLACEMENT, SAFETY PRECAUTIONS IN PLACE WITH LOW BED AND LOCKED WITH SIDE RAILS UPX2. ALL NEEDS ATTENDED AT THIS TIME, BED ALARM IN PLACE. WILL CONTINUE TO MONITOR ACCORDINGLY AND ATTEND TO NEEDS.
[2019-04-13 20:00] VITALS: BP 148/82
[2019-04-13] MEDS: LEVOFLOXACIN 750 MG /D5W 150ML 750 MG in PREMIX 1 EA IV SCH (20:05)
--- NOTE | 2019-04-13 20:10 | NUR ---
MS/ RN NOTES: SPOKE WITH PATIENT'S FAMILY AND CLARIFIED IF PATIENT IS ALLERGIC TO EGGS. PER FAMILY AND PATIENT, SHE IS NOT ALLERGIC TO EGGS.
--- NOTE | 2019-04-14 06:22 | NUR ---
MS/ RN CLOSING NOTES: PATIENT IS IN BED SLEEPING. AROUSABLE ON VERBAL AND TACTILE STIMULI. VERBALLY RESPONSIVE AND ABLE TO MAKE NEEDS KNOWN. KAZAKH SPEAKING. A/OX1. NO SOB NOTED. RESPIRATIONS EVEN AND UNLABORED. NO COMPLAINS OF ANY PAIN OR DISCOMFORT AT THIS TIME, IV SITE TO LEFT ARM #22 G INTACT AND PATENT, NO REDNESS, NO INFILTRATION PRESENT, HEAD OF BED ELEVATED FOR ASPIRATION PRECAUTIONS. G-TUBE IN PLACE AND INTACT, WITH PROPER PLACEMENT, SAFETY PRECAUTIONS IN PLACE, LOW BED AND LOCKED ALL NEEDS ATTENDED AT THIS TIME, BED ALARM IN PLACE. WOUND CARE DRESSING CHANGED. TURNED AND REPOSITIONED PATIENT Q2HRS. KEPT PATIENT CLEAN AND DRY AT ALL TIMES, KEPT PATIENT WARM AND COMFORTABLE THROUGHOUT THE SHIFT. ALL DUE MEDICATION GIVEN, NO ADVERSE REACTIONS. TOLERATED WELL. WILL ENDORSE TO DAY SHIFT FOR FERMIN.
[2019-04-14 07:14] LABS: BASOPHILS % (AUTO) 0.3 % (0.0-2.0); EOSINOPHILS % (AUTO) 9.9 % (0.0-6.0); HEMATOCRIT 34 % (33-45); LYMPHOCYTES # (AUTO) 1.7 /CMM (0.8-4.8); LYMPHOCYTES % (AUTO) 15.1 % (20.0-44.0); MEAN CORPUSCULAR HGB CONC 33 g/dl (31.0-36.0); MEAN CORPUSCULAR VOLUME 85 fL (82-100); MONOCYTES # (AUTO) 1.1 /CMM (0.1-1.30); MONOCYTES % (AUTO) 9.6 % (2.0-12.0); NEUTROPHILS # (AUTO) 7.3 /CMM (1.8-8.9); NEUTROPHILS % (AUTO) 65.1 % (43.0-81.0); PLATELET COUNT (AUTO) 276 /CMM (150-450); RED BLOOD CELL COUNT(AUTO) 3.98 MIL/uL (4.0-5.2); WHITE BLOOD COUNT (AUTO) 11.2 K/uL (4.3-11.0)
--- NOTE | 2019-04-14 07:14 | NUR ---
MS RN NOTES PATIENT RECEIVED RESTING INSIDE ROOM, SLEEPING, AROUSABLE THROUGH VERBAL AND TACTILE STIMULI. NO ACUTE DISTRESS NOTED AT THIS TIME. DENIES ANY PAIN OR DISCOMFORT. NO FACIAL GRIMACE NOTED. MAINTAINED ASPIRATION PRECAUTIONS. SAFETY PRECAUTIONS IN PLACE. WILL CONTINUE TO MONITOR. BED LOCKED AND IN LOW POSITION. BILATERAL UPPER SIDE RAILS UP AND LOCKED. CALL LIGHT WITHIN EASY REACH
[2019-04-14] MEDS: ALBUTEROL HALF STRENGTH 1.25 MG/3 ML VIAL.NEB NEB SCH ×4 (07:28→20:22)
[2019-04-14 07:30] LABS: CALCIUM, SERUM 8.6 mg/dL (8.5-10.1); CREATININE 0.8 mg/dL (0.6-1.3); MAGNESIUM 1.9 mg/dL (1.8-2.4); PHOSPHORUS 3.9 mg/dL (2.5-4.9); POTASSIUM 3.8 mmol/L (3.5-5.1)
[2019-04-14 08:00] VITALS: BP 110/61
[2019-04-14] MEDS: ENOXAPARIN SODIUM 40 MG/0.4 ML DISP.SYRIN SQ SCH (09:28)
[2019-04-14] MEDS: ASCORBIC ACID 500 MG TABLET GT SCH (09:28)
[2019-04-14] MEDS: CHOLECALCIFEROL (VITAMIN D 3) 400 UNIT TABLET GT SCH (09:28)
[2019-04-14] MEDS: VALPROIC ACID 250 MG/5 ML UDC GT SCH ×3 (09:28→17:26)
[2019-04-14] MEDS: DOCUSATE SODIUM LIQ 100 MG/10 ML UDC GT SCH ×2 (09:28→21:27)
[2019-04-14] MEDS: AMIODARONE HCL 200 MG TABLET GT SCH (09:29)
[2019-04-14] MEDS: ASPIRIN 81 MG TAB.CHEW GT SCH (09:29)
[2019-04-14] MEDS: CALCIUM CARB 600MG /VIT D 1 EACH TABLET GT SCH (09:29)
[2019-04-14] MEDS: MULTIVIT W/MINERALS 1 TAB TABLET GT SCH (09:29)
[2019-04-14] MEDS: PANTOPRAZOLE 40 MG/PACK PACK NG SCH (09:29)
[2019-04-14] MEDS: CLOTRIMAZOLE 1% 15 GM TUBE TP SCH ×2 (09:30→17:26)
[2019-04-14] MEDS: PROSOURCE / PROSTAT (PYXIS) 30 ML UDC GT SCH ×3 (09:30→17:26)
[2019-04-14] MEDS: HYDROGEL DRESSING 90 GM TUBE TP SCH (09:30)
[2019-04-14 16:00] VITALS: BP 142/62
--- NOTE | 2019-04-14 18:35 | NUR ---
MS RN NOTES PATIENT RESTING INSIDE ROOM. AWAKE, ALERT AND ORIENTED TO SELF, PATIENT REORIENTED NEEDED. NO ACUTE DISTRESS. NO CHANGES IN LOC NOTED. PATIENT KEPT CLEAN, DRY AND COMFORTABLE. MAINTAINED ASPIRATION PRECAUTIONS. WILL ENDORSE TO INCOMING SHIFT FOR FERMIN. BED LOCKED AND IN LOW POSITION. BILATERAL UPPER SIDE RAILS UP AND LOCKED. CALL LIGHT WITHIN EASY REACH
--- NOTE | 2019-04-14 19:30 | NUR ---
RN NOTES Received pt. awake on bed, a/ox1, Estonian speaking, not in distress, no pain noted, siderailsupx2, continue to monitor
[2019-04-14 20:00] VITALS: BP 139/59
[2019-04-14] MEDS ORDERED: LEVOFLOXACIN 750 MG /D5W 150ML 750 MG in PREMIX 1 EA IV SCH (20:00)
--- NOTE | 2019-04-14 20:00 | NUR ---
RN NOTES NEW iv LINE INSERTED ON THE RIGHT FOREARM # 22
--- NOTE | 2019-04-15 06:45 | NUR ---
RN NOTES AWAKE NOT IN DISTRESS, NO PAIN NOTED, NO SOB, MORNING CARE RENDERED, [id number], PT. NEEDS ATTENDED
[2019-04-15] MEDS: ALBUTEROL HALF STRENGTH 1.25 MG/3 ML VIAL.NEB NEB SCH ×2 (07:45→11:30)
--- NOTE | 2019-04-15 07:46 | NUR ---
MS RN NOTES PATIENT RECEIVED RESTING INSIDE ROOM, SLEEPING, AROUSABLE THROUGH VERBAL AND TACTILE STIMULI. ALERT AND ORIENTED X 1. NO ACUTE DISTRESS NOTED AT THIS TIME. DENIES ANY PAIN OR DISCOMFORT. NO FACIAL GRIMACE NOTED. MAINTAINED ASPIRATION PRECAUTIONS. SAFETY PRECAUTIONS IN PLACE. WILL CONTINUE TO MONITOR. BED LOCKED AND IN LOW POSITION. BILATERAL UPPER SIDE RAILS UP AND LOCKED. CALL LIGHT WITHIN EASY REACH
[2019-04-15 08:00] VITALS: BP 145/84
[2019-04-15] MEDS: DOCUSATE SODIUM LIQ 100 MG/10 ML UDC GT SCH (08:56)
[2019-04-15] MEDS: ENOXAPARIN SODIUM 40 MG/0.4 ML DISP.SYRIN SQ SCH (08:56)
[2019-04-15] MEDS: VALPROIC ACID 250 MG/5 ML UDC GT SCH ×2 (08:56→12:55)
[2019-04-15 08:57] VITALS: BP 145/84
[2019-04-15] MEDS: ASCORBIC ACID 500 MG TABLET GT SCH (08:57)
[2019-04-15] MEDS: AMIODARONE HCL 200 MG TABLET GT SCH (08:57)
[2019-04-15] MEDS: CALCIUM CARB 600MG /VIT D 1 EACH TABLET GT SCH (08:57)
[2019-04-15] MEDS: CHOLECALCIFEROL (VITAMIN D 3) 400 UNIT TABLET GT SCH (08:57)
[2019-04-15] MEDS: PANTOPRAZOLE 40 MG/PACK PACK NG SCH (08:57)
[2019-04-15] MEDS: ASPIRIN 81 MG TAB.CHEW GT SCH (08:57)
[2019-04-15] MEDS: MULTIVIT W/MINERALS 1 TAB TABLET GT SCH (08:57)
[2019-04-15] MEDS: PROSOURCE / PROSTAT (PYXIS) 30 ML UDC GT SCH ×2 (08:59→12:55)
[2019-04-15] MEDS: HYDROGEL DRESSING 90 GM TUBE TP SCH (09:01)
[2019-04-15] MEDS: CLOTRIMAZOLE 1% 15 GM TUBE TP SCH (09:01)
[2019-04-15 09:05] LABS: BASOPHILS # (AUTO) 0.1 /CMM (0.0-0.2); BASOPHILS % (AUTO) 0.5 % (0.0-2.0); EOSINOPHILS % (AUTO) 10.4 % (0.0-6.0); HEMATOCRIT 34 % (33-45); HEMOGLOBIN 11.2 g/dL (11.5-14.8); LYMPHOCYTES # (AUTO) 1.3 /CMM (0.8-4.8); LYMPHOCYTES % (AUTO) 12.7 % (20.0-44.0); MEAN CORPUSCULAR HGB CONC 33 g/dl (31.0-36.0); MEAN CORPUSCULAR VOLUME 85 fL (82-100); MONOCYTES # (AUTO) 0.9 /CMM (0.1-1.30); MONOCYTES % (AUTO) 8.9 % (2.0-12.0); NEUTROPHILS % (AUTO) 67.5 % (43.0-81.0); PLATELET COUNT (AUTO) 272 /CMM (150-450); WHITE BLOOD COUNT (AUTO) 10.3 K/uL (4.3-11.0)
[2019-04-15 09:26] LABS: CALCIUM, SERUM 8.8 mg/dL (8.5-10.1); CREATININE 0.8 mg/dL (0.6-1.3); PHOSPHORUS 3.3 mg/dL (2.5-4.9); POTASSIUM 3.6 mmol/L (3.5-5.1)
[2019-04-15] MEDS ORDERED: Prosource GT (09:45)
[2019-04-15] MEDS ORDERED: LEVO750T46 PO (09:45)
--- NOTE | 2019-04-15 13:25 | NUR ---
MS RN NOTES PLACED CALL TO MANI ACKERMAN ([phone]) AND GAVE REPORT TO TAYLOR SHEA
--- NOTE | 2019-04-15 14:46 | NUR ---
MS RN NOTES PATIENT FOR DISCHARGE TODAY. TO TRANSFER TO [facility]. DISCHARGE INSTRUCTIONS AND EDUCATION PROVIDED. PATIENT'S DAUGHTER AT BEDSIDE. ALL BELONGINGS COMPLETE ON DISCHARGE, NO REPORT OF MISSING INVENTORY. PATIENT WEARING HER DENTURES. IV REMOVED, TIP INTACT, PRESSURE DRESSING PLACED ON SITE. NO NEW SKIN BREAKDOWN NOTED ON DISCHARGE. PATIENT LEFT UNIT VIA GURNEY IN STABLE CONDITION. MD AWARE OF DISCHARGE
== END 2019-04-15 14:44 | DRG 137 ==
LOC: ER 15:01 → TELE 18:33 → MED 04-12 10:12
PROVIDERS: ADMIT Hospitalist; ATTEND Student in an Organized Health Care Education/Training Program
DX: J15.6 Pneumonia due to other Gram-negative bacteria (principal); E44.0 Moderate protein-calorie malnutrition; E87.2 Acidosis; L89.313 Pressure ulcer of right buttock, stage 3; D69.2 Other nonthrombocytopenic purpura; E88.09 Other disorders of plasma-protein metabolism, not elsewhere classified; E22.2 Syndrome of inappropriate secretion of antidiuretic hormone; I48.0 Paroxysmal atrial fibrillation; L89.890 Pressure ulcer of other site, unstageable; R13.10 Dysphagia, unspecified; Z93.1 Gastrostomy status; D64.9 Anemia, unspecified; E03.9 Hypothyroidism, unspecified; F03.90 Unspecified dementia, unspecified severity, without behavioral disturbance, psychotic disturbance, mood disturbance, and anxiety; K21.9 Gastro-esophageal reflux disease without esophagitis; I25.10 Atherosclerotic heart disease of native coronary artery without angina pectoris; Z68.22 Body mass index [BMI] 22.0-22.9, adult; E05.90 Thyrotoxicosis, unspecified without thyrotoxic crisis or storm; M20.42 Other hammer toe(s) (acquired), left foot; M20.41 Other hammer toe(s) (acquired), right foot; M62.562 Muscle wasting and atrophy, not elsewhere classified, left lower leg; M62.561 Muscle wasting and atrophy, not elsewhere classified, right lower leg; L30.4 Erythema intertrigo; I10 Essential (primary) hypertension
CPT/HCPCS: 36415; 71045-TC; 80048-TC; 80061-TC; 80076-TC; 80164-TC; 81000-TC; 83605-TC; 83735-TC; 83880; 84100-TC; 84439-TC; 84443-TC; 84484-TC; 85025-TC; 85730-TC; 87040-TC; 87081-TC; 87086-TC; 92611-TC; 93307-TC; 94799-TC; 97110-TC; 97112-TC; 97530-TC; A4216; A6248; G0378; J0692; J1650; J1940; J1956; J3370; J7050; J7060

== ENCOUNTER 2019-06-24 14:42 | Inpatient (IN) | payer OTHER ==
[~2019-06-24] VITALS: Ht 154.9 cm; Wt 57.2 kg
[~2019-06-24 14:42] MED LIST changes: +CHOL100040 PO; -DIVA125C2 GT; +ENOX40DI SQ; -HYDR28.32 TP; -L. A1CAP11 GT; +LEVO750T46 PO; -MEMA5TAB GT; +PANT40TA4 PO; +Prosource GT; +SENN-175 GT; +VALP250S22 GT
--- NOTE | 2019-06-24 14:45 | NUR ---
DAE AUSTIN 88 YEAR OLD FEMALE FR SNF FOR SYNCOPE AT 1030. 2 DAYS OF N/V ALSO ENDORSED. ALERT AND ORIENTED X1, BREATHING EVEN AND UNALBORED WITH NO DISTRESS NOTED. NOTED WITH GT SITE. WAITING TO BE SEEN BY MD.
[2019-06-24] MEDS ORDERED: ONDANSETRON HCL/PF 4 MG/2 ML VIAL ONE (15:00)
[2019-06-24] MEDS ORDERED: IV NS 0.9% 1,000 ML BAG IV ONE (15:00)
[2019-06-24] MEDS ORDERED: ONDANSETRON HCL/PF 4 MG/2 ML VIAL IVP ONE (15:00)
[2019-06-24 15:26] LABS: BASOPHILS # (AUTO) 0.1 /CMM (0.0-0.2); BASOPHILS % (AUTO) 0.8 % (0.0-2.0); EOSINOPHILS % (AUTO) 12.3 % (0.0-6.0); HEMATOCRIT 33 % (33-45); HEMOGLOBIN 10.8 g/dL (11.5-14.8); LYMPHOCYTES # (AUTO) 2.4 /CMM (0.8-4.8); LYMPHOCYTES % (AUTO) 29.1 % (20.0-44.0); MEAN CORPUSCULAR HGB CONC 33 g/dl (31.0-36.0); MEAN CORPUSCULAR VOLUME 87 fL (82-100); MONOCYTES # (AUTO) 0.6 /CMM (0.1-1.30); MONOCYTES % (AUTO) 7.7 % (2.0-12.0); NEUTROPHILS # (AUTO) 4.1 /CMM (1.8-8.9); NEUTROPHILS % (AUTO) 50.1 % (43.0-81.0); PLATELET COUNT (AUTO) 225 /CMM (150-450); RED BLOOD CELL COUNT(AUTO) 3.79 MIL/uL (4.0-5.2); WHITE BLOOD COUNT (AUTO) 8.2 K/uL (4.3-11.0)
[2019-06-24 15:39] LABS: CALCIUM, SERUM 8.4 mg/dL (8.5-10.1); CARBON DIOXIDE 29 mmol/L (21-32); CHLORIDE 97 mmol/L (98-107); GLUCOSE 120 mg/dL (74-106); POTASSIUM 5.6 mmol/L (3.5-5.1); SODIUM SERUM 132 mmol/L (136-145); UREA NITROGEN, BLOOD 44 mg/dL (7-18)
--- NOTE | 2019-06-24 15:40 | NUR ---
F/C INSERTED PER MD
--- NOTE | 2019-06-24 15:47 | NUR ---
URINE COLLECTED SENT TO LAB
[2019-06-24 15:51] LABS: ALANINE AMINOTRANSFERASE 7 U/L (12-78); ALBUMIN 2.8 g/dL (3.4-5.0); ALKALINE PHOSPHATASE 85 U/L (46-116); ASPARTATE AMINOTRANSFERASE 19 U/L (15-37); BILIRUBIN,DIRECT 0.1 mg/dL (0.0-0.2); BILIRUBIN,TOTAL 0.3 mg/dL (0.2-1.0); TOTAL PROTEIN, SERUM 8.1 g/dL (6.4-8.2)
[2019-06-24 15:52] LABS: APPEARANCE,URINE Cloudy (CLEAR); BILIRUBIN,URINE Negative (NEGATIVE); BLOOD, URINE Trace-intact Ery/uL (NEGATIVE); COLOR,URINE Yellow (YELLOW); KETONES,URINE Negative (NEGATIVE); LEUKOCYTE ESTERASE ,URINE Large (NEGATIVE); NITRITE, URINE Negative (NEGATIVE); PH,URINE 6.5 (5.0-8.0); PROTEIN,URINE Negative (NEGATIVE); UGLUCOSE Negative (NEGATIVE)
[2019-06-24 16:06] LABS: WBC,URINE TOO NUMEROUS TO COUN /HPF (0-3)
[2019-06-24 16:07] LABS: BACTERIA,URINE 2+ /HPF (None Seen); SQUAMOUS EPITHELIAL CELL,UR Few /HPF (None Seen); YEAST,URINE Moderate /HPF (None Seen)
--- NOTE | 2019-06-24 16:11 | NUR ---
RADHIKA DAWN TOOK PT FOR CT SCAN
[2019-06-24] MEDS ORDERED: CEFTRIAXONE 1 G in IV D5W 50 ML IV ONE (16:30)
--- NOTE | 2019-06-24 16:30 | NUR ---
CALLED NURSING SUP FOR TELE BED.
[2019-06-24] MEDS ORDERED: CEFTRIAXONE 1GM BAG (ER ONLY) 50 ML IV ONE (17:02)
--- NOTE | 2019-06-24 17:30 | NUR ---
PAGED [facility].
[2019-06-24] MEDS ORDERED: MULT-439 GT (18:03)
[2019-06-24] MEDS ORDERED: POLY17PO4 GT (18:03)
--- NOTE | 2019-06-24 18:26 | NUR ---
NURSING SUP GAVE TELE [phone].
--- NOTE | 2019-06-24 19:24 | NUR ---
REPORT GIVEN TO VANE
--- NOTE | 2019-06-24 19:45 | NUR ---
INDUSTRIAL WELDER ADMITTING NOTES PATIENT ARRIVED ON UNIT VIA GURNEY, ACCOMPANIED BY ER STAFF AND DAUGHTER; PATIENT IS BURUNDIAN SPEAKING, AWAKE, A/O X1; BREATHING EVEN AND UNLABORED; NO SOB OR ACUTE RESPIRATORY DISTRESS; PATIENT DENIES PAIN; PATIENT ON 3L NC, SP02 80S, SIMPLE MASK APPLIED 10L, PATIENT SP02 STILL MID 80S, CALLED RT; RT REPLACED SIMPLE MASK WITH NONREBREATHER MASK AT 15L, 02 SAT 94%, ABGS ORDERED; MD INFORMED; TELE MONITOR APPLIED; TELE MONITOR READS NORMAL SINUS RHYTHM WITH 1ST DEGREE AVB; HR 61. PICTURES OF WOUNDS TAKEN AND FILED IN PATIENT BINDER; GTUBE INTACT; DRESSING INTACT; GEE CATH INTACT, FLOWING YELLOW URINE; SAFETY PRECAUTIONS IN PLACE; BILATERAL UPPER SIDE RAILS X2; BED LOCKED IN LOW POSITION; CALL LIGHT WITHIN REACH; AWAITING RT AND ABG RESULTS, WILL CONTINUE TO MONITOR
[2019-06-24 20:00] VITALS: BP 142/62
[2019-06-24] MEDS ORDERED: BISACODYL SUPP (10 MG) 10 MG/SUPP.RECT SUPP.RECT RC PRN (20:30)
[2019-06-24] MEDS ORDERED: MAG HYDROX/AL HYDROX/SIMETH 30 ML UDC PO PRN (20:30)
[2019-06-24] MEDS ORDERED: ONDANSETRON HCL/PF 4 MG/2 ML VIAL IVP PRN (20:30)
[2019-06-24] MEDS ORDERED: POLYETHYLENE GLYCOL 3350 17 GM POWD.PACK GT PRN (20:30)
[2019-06-24] MEDS ORDERED: MAGNESIUM HYDROXIDE 30 ML UDC GT PRN (20:30)
[2019-06-24] MEDS ORDERED: NA PHOS,M-B/NA PHOS,DI-BA 1 EA ENEMA RC PRN (20:30)
[2019-06-24] MEDS ORDERED: HYDROCODONE/APAP 5/325MG 1 EACH TABLET PO PRN (20:30)
[2019-06-24] MEDS ORDERED: ACETAMINOPHEN 650 MG/20.3 ML UDC GT PRN (20:30)
[2019-06-24] MEDS ORDERED: ALBUTEROL FS 2.5 MG/3 ML VIAL.NEB IH PRN (20:30)
[2019-06-24] MEDS ORDERED: MAGNESIUM HYDROXIDE 30 ML UDC PO PRN (20:30)
[2019-06-24] MEDS ORDERED: SENNOSIDES 8.6 MG TABLET GT PRN (20:30)
[2019-06-24] MEDS ORDERED: ACETAMINOPHEN 325 MG TABLET PO PRN (20:30)
[2019-06-24] MEDS ORDERED: Z GUARD REMEDY 2 OZ OINT TP PRN (20:30)
[2019-06-24 20:57] LABS: ABG BASE EXCESS 1.5 mmol/L; ABG OXYGEN SATURATION 99.4 % (92.0-98.5); ABG PCO2 37.6 mmHg (35.0-45.0); ABG PH 7.449 (7.350-7.450); ABG PO2 443.5 mmHg (75.0-100.0); AaDO2 231.9 mmHg; COHb 0.3 % (0.5-1.5); MetHb 0.5 % (0.0-1.5); O2Hb 98.6 % (94.0-97.0); SITE, ABG Right Radial
[2019-06-24] MEDS: PROSOURCE / PROSTAT (PYXIS) 30 ML UDC GT SCH (21:00)
--- NOTE | 2019-06-24 21:00 | NUR ---
VERTICAL LATHE OPERATOR NOTES PROSTAT/PROSOURCE NON-ADMIN; NOT AVAILABLE.
--- NOTE | 2019-06-24 21:08 | NUR ---
GROUND SUPPORT EQUIPMENT MECHANIC NOTES INFORMED MD REGARDING ABG RESULTS; MD AWARE AND STATES NO ISSUE IS PRESENT WITH OXYGENATION; RT APPLIED SIMPLE MASK AT 7L, NO SOB NOTED; NO S/S OF ACUTE RESPIRATORY DISTRESS NOTED; PATIENT TOLERATING SIMPLE MASK WELL; WILL CONTINUE TO MONITOR
[2019-06-24] MEDS: DOCUSATE SODIUM LIQ 100 MG/10 ML UDC GT SCH (21:44)
[2019-06-24] MEDS ORDERED: DONEPEZIL 5 MG TABLET GT SCH (22:00)
[2019-06-25] VITALS: BP 110/55
[2019-06-25] MEDS: IV NS 0.9% 1,000 ML IV PRN ×2 (00:50→15:45)
--- NOTE | 2019-06-25 02:36 | NUR ---
LEASING AGENT NOTES RT AT BEDSIDE; MONITORING PATIENT; PATIENT AWAKE, A/O X1; BREATHING EVEN AND UNLABORED; NO SOB; NO ACUTE RESPIRATORY DISTRESS NOTED; TITRATING O2 TOLERATED; WILL CONTINUE TO MONITOR
[2019-06-25 04:00] VITALS: BP 129/62
--- NOTE | 2019-06-25 06:30 | NUR ---
ASSOCIATE PROFESSOR OF MEDICINE CLOSING NOTES PATIENT RESTING IN BED COMFORTABLY; NO SOB; NO S/S OF ACUTE RESPIRATORY DISTRESS NOTED; BREATHING EVEN AND UNLABORED; PATIENT TOLERATING SIMPLE MASK 5L WELL; TITRATING TOLERATED; PATIENT A/O X1; TELE MONITOR READS NSR WITH FIRST DEGREE AVB; HR 60S; L HAND #20 RUNNING NS @ 75ML/HR; IV SITE INTACT AND PATENT; NO S/S OF REDNESS OR INFILTRATION NOTED; GEE CATH INTACT, FLOWING YELLOW URINE; ALL NEEDS ATTENDED TO; SAFETY PRECAUTIONS IN PLACE; BED LOCKED IN LOW POSITION, SIDE RAILS X2; CALL LIGHT WITHIN REACH; WILL ENDORSE CONTINUITY OF CARE TO ONCOMING NURSE.
[2019-06-25 07:36] LABS: BASOPHILS # (AUTO) 0.1 /CMM (0.0-0.2); BASOPHILS % (AUTO) 0.8 % (0.0-2.0); EOSINOPHILS % (AUTO) 18.9 % (0.0-6.0); HEMATOCRIT 30 % (33-45); HEMOGLOBIN 10.1 g/dL (11.5-14.8); LYMPHOCYTES # (AUTO) 1.8 /CMM (0.8-4.8); LYMPHOCYTES % (AUTO) 25.1 % (20.0-44.0); MEAN CORPUSCULAR HGB CONC 33 g/dl (31.0-36.0); MEAN CORPUSCULAR VOLUME 85 fL (82-100); MONOCYTES # (AUTO) 0.8 /CMM (0.1-1.30); MONOCYTES % (AUTO) 10.5 % (2.0-12.0); NEUTROPHILS # (AUTO) 3.2 /CMM (1.8-8.9); NEUTROPHILS % (AUTO) 44.7 % (43.0-81.0); PLATELET COUNT (AUTO) 222 /CMM (150-450); RED BLOOD CELL COUNT(AUTO) 3.54 MIL/uL (4.0-5.2); WHITE BLOOD COUNT (AUTO) 7.2 K/uL (4.3-11.0)
--- NOTE | 2019-06-25 07:41 | NUR ---
DIVISION ENGINEER OPENING NOTES RECEIVED PATIENT RESTING IN BED COMFORTABLY; A/O X1. ON OXYGEN VIA SIMPLE MASK 5LPM; TELE MONITOR READS SR WITH HR 60S; NO SIGNS OF DISTRESS NOTED AT THIS TIME. IV FLUIDS ON L HAND #20 RUNNING NS @ 75ML/HR; INTACT AND PATENT; NO S/S OF REDNESS OR INFILTRATION NOTED; GEE CATH INTACT, FLOWING YELLOW URINE. SAFETY PRECAUTIONS IN PLACE; BED LOCKED IN LOW POSITION, SIDE RAILS X2; CALL LIGHT WITHIN REACH. WILL CONTINUE TO MONITOR.
[2019-06-25 07:42] LABS: CREATININE 0.6 mg/dL (0.6-1.3); MAGNESIUM 2.1 mg/dL (1.8-2.4); PHOSPHORUS 3.3 mg/dL (2.5-4.9); POTASSIUM 4.4 mmol/L (3.5-5.1)
[2019-06-25 08:00] VITALS: BP 110/58
[2019-06-25] MEDS: LEVOTHYROXINE SODIUM 75 MCG TABLET GT SCH (08:31)
[2019-06-25] MEDS: PANTOPRAZOLE 40 MG/PACK PACK GT SCH (08:32)
[2019-06-25] MEDS: MULTIVIT W/MINERALS 1 TAB TABLET GT SCH (08:32)
[2019-06-25] MEDS: VALPROIC ACID 250 MG/5 ML UDC GT SCH ×3 (08:32→17:18)
[2019-06-25] MEDS: AMIODARONE HCL 200 MG TABLET GT SCH (08:32)
[2019-06-25] MEDS: ASPIRIN 81 MG TAB.CHEW GT SCH (08:32)
[2019-06-25] MEDS: PROSOURCE / PROSTAT (PYXIS) 30 ML UDC GT SCH ×3 (08:33→17:18)
[2019-06-25] MEDS: DOCUSATE SODIUM LIQ 100 MG/10 ML UDC GT SCH ×2 (08:33→21:12)
[2019-06-25] MEDS: CHOLECALCIFEROL (VITAMIN D 3) 400 UNIT TABLET GT SCH (08:33)
[2019-06-25] MEDS: CALCIUM CITRATE(CITRACAL) /VITAMIN D 1 TAB TABLET GT SCH (08:34)
[2019-06-25 09:05] LABS: THYROID STIMULATING HORMONE 1.362 uIU/mL (0.358-3.74)
[2019-06-25] MEDS: FLUCONAZOLE (100 MG) 100 MG TABLET PO SCH (11:29)
[2019-06-25 16:00] VITALS: BP 142/59
[2019-06-25] MEDS ORDERED: CEFTRIAXONE 1 G in IV D5W 50 ML IV SCH (17:00)
[2019-06-25] MEDS ORDERED: MEMANTINE HCL 5 MG TABLET GT SCH (18:00)
--- NOTE | 2019-06-25 18:42 | NUR ---
PAID SEARCH SPECIALIST CLOSING NOTES PATIENT RESTING IN BED COMFORTABLY; A/O X1. ON OXYGEN VIA NC @ 4LPM SATURATING 96-99%; TELE MONITOR READS SR WITH HR 60S; NO SIGNS OF DISTRESS NOTED THROUGHOUT THE SHIFT. IV FLUIDS ON L HAND #20 RUNNING NS @ 75ML/HR; INTACT AND PATENT; G-TUBE IN PLACE, INTACT WITH NO RSV. NO S/S OF REDNESS OR INFILTRATION NOTED; GEE CATH INTACT, FLOWING YELLOW URINE. SAFETY PRECAUTIONS IN PLACE; BED LOCKED IN LOW POSITION, SIDE RAILS X2; CALL LIGHT WITHIN REACH. WILL ENDORSE TO [employer]SE SUPERVISOR NURSE FOR FERMIN.
--- NOTE | 2019-06-25 19:30 | NUR ---
RN NOTES RECEIVED PT. SLEEPING BUT AROUSABLE, SB ON TELE MONITOR HR-59, A/OX1, MAORI SPEAKING, GEE CATHETER DRAINING CLEAR YELLOW URINE, NOT IN DISTRESS, NO PAIN NOTED, CALL LIGHT WITHIN REACH, SIDERAILSUPX2, CONTINUE TO MONITOR
[2019-06-25 20:00] VITALS: BP 137/53
--- NOTE | 2019-06-25 20:10 | NUR ---
RN NOTES PT'S FAMILY REQUESTED GEE CATHETER TO BE REMOVED, EXPLAINED THE BENEFITS OF HAVING GEE CATHETER BECAUSE PT. HAS SACRAL WOUND, BUT PT. FAMILY STILL WANT THE GEE CATHETER TO BE REMOVED.. CHARGE NURSE MADE AWARE
[2019-06-25 20:42] VITALS: BP 137/53
[2019-06-26] VITALS: BP 135/57
[2019-06-26] MEDS: IV NS 0.9% 1,000 ML IV PRN (02:05)
[2019-06-26 04:07] VITALS: BP 155/54
--- NOTE | 2019-06-26 06:26 | NUR ---
RN NOTES SLEEPING BUT AROUSABLE, MORNING CARE RENDERED, NOT IN DISTRESS, SIDERAILSUPX2, CONTINUE TO MONITOR
[2019-06-26 07:35] LABS: BASOPHILS # (AUTO) 0.1 /CMM (0.0-0.2); BASOPHILS % (AUTO) 0.7 % (0.0-2.0); HEMATOCRIT 30 % (33-45); LYMPHOCYTES # (AUTO) 1.9 /CMM (0.8-4.8); LYMPHOCYTES % (AUTO) 25.5 % (20.0-44.0); MEAN CORPUSCULAR HGB CONC 33 g/dl (31.0-36.0); MEAN CORPUSCULAR VOLUME 85 fL (82-100); MONOCYTES # (AUTO) 0.7 /CMM (0.1-1.30); MONOCYTES % (AUTO) 9.3 % (2.0-12.0); NEUTROPHILS # (AUTO) 3.3 /CMM (1.8-8.9); NEUTROPHILS % (AUTO) 44.5 % (43.0-81.0); PLATELET COUNT (AUTO) 226 /CMM (150-450); RED BLOOD CELL COUNT(AUTO) 3.53 MIL/uL (4.0-5.2); WHITE BLOOD COUNT (AUTO) 7.4 K/uL (4.3-11.0)
--- NOTE | 2019-06-26 07:35 | NUR ---
RN OPENING NOTES RECEIVED PATIENT RESTING IN BED COMFORTABLY; A/O X1. ON OXYGEN VIA NC @4LPM; NO SIGNS OF DISTRESS NOTED AT THIS TIME. IV ACCESS ON L HAND #20; INTACT AND PATENT. SAFETY PRECAUTIONS IN PLACE; BED LOCKED IN LOW POSITION, SIDE RAILS X2; CALL LIGHT WITHIN REACH. WILL CONTINUE TO MONITOR.
[2019-06-26 07:57] LABS: ALBUMIN 2.6 g/dL (3.4-5.0); BILIRUBIN,TOTAL 0.5 mg/dL (0.2-1.0); CALCIUM, SERUM 7.9 mg/dL (8.5-10.1); CREATININE 0.6 mg/dL (0.6-1.3); MAGNESIUM 1.9 mg/dL (1.8-2.4); POTASSIUM 4.1 mmol/L (3.5-5.1); TOTAL PROTEIN, SERUM 7.4 g/dL (6.4-8.2)
[2019-06-26 08:00] VITALS: BP 147/59
[2019-06-26 08:31] VITALS: BP 147/60
[2019-06-26] MEDS: CHOLECALCIFEROL (VITAMIN D 3) 400 UNIT TABLET GT SCH (08:31)
[2019-06-26] MEDS: DOCUSATE SODIUM LIQ 100 MG/10 ML UDC GT SCH (08:31)
[2019-06-26] MEDS: PANTOPRAZOLE 40 MG/PACK PACK GT SCH (08:31)
[2019-06-26] MEDS: LEVOTHYROXINE SODIUM 75 MCG TABLET GT SCH (08:31)
[2019-06-26] MEDS: ASPIRIN 81 MG TAB.CHEW GT SCH (08:31)
[2019-06-26] MEDS: AMIODARONE HCL 200 MG TABLET GT SCH (08:31)
[2019-06-26] MEDS: MULTIVIT W/MINERALS 1 TAB TABLET GT SCH (08:31)
[2019-06-26] MEDS: PROSOURCE / PROSTAT (PYXIS) 30 ML UDC GT SCH ×2 (08:31→12:17)
[2019-06-26] MEDS: FLUCONAZOLE (100 MG) 100 MG TABLET PO SCH (08:31)
[2019-06-26] MEDS: CALCIUM CITRATE(CITRACAL) /VITAMIN D 1 TAB TABLET GT SCH (08:33)
[2019-06-26] MEDS: VALPROIC ACID 250 MG/5 ML UDC GT SCH ×2 (08:33→12:17)
[2019-06-26] MEDS ORDERED: FLUC150T PO (10:03)
--- NOTE | 2019-06-26 16:33 | NUR ---
RN DISCHARGED NOTES PATIENT DISCHARGED IN STABLE CONDITION. A/0 X 1. FAMILY AT BEDSIDE. V/S TAKEN, STABLE AND RECORDED. PATIENTS IV REMOVED AND APPLIED PRESSURE DRESSINGS. TOOK PICTURES OF SKIN ISSUES AND FILED ON CHART. NAME ARM BAND REMOVED. ALL BELONGINGS CHECKED AND SIGNED. HEALTH TEACHINGS/DISCHARGED INSTRUCTIONS GIVEN AND VERBALIZED UNDERSTANDING. REPORT GIVEN TO ROLA (NURSING JACKSCREW MAN) ON [facility]. PATIENT LEFT UNIT VIA GURNEY WITH 2 AMBULANCE STAFF. NO SIGNS OF DISTRESS NOTED. CHARGE NURSE AWARE OF DISCHARGED.
[2019-07-07] MEDS ORDERED: CEPH-569 PO (10:51)
[2019-07-07] MEDS ORDERED: MUPI22OI7 (10:51)
[2019-07-07] MEDS ORDERED: CLOT15CR5 TP (10:51)
== END 2019-06-26 16:30 | DRG 469 ==
LOC: ER 14:43 → TELE 19:31 → MED 06-26 08:45
PROVIDERS: ADMIT Internal Medicine; ATTEND Internal Medicine
DX: N17.0 Acute kidney failure with tubular necrosis (principal); G93.41 Metabolic encephalopathy; D68.59 Other primary thrombophilia; E87.5 Hyperkalemia; E87.1 Hypo-osmolality and hyponatremia; E86.0 Dehydration; I11.0 Hypertensive heart disease with heart failure; I48.91 Unspecified atrial fibrillation; I50.9 Heart failure, unspecified; Z93.1 Gastrostomy status; R13.10 Dysphagia, unspecified; D63.8 Anemia in other chronic diseases classified elsewhere; E86.1 Hypovolemia; F03.90 Unspecified dementia, unspecified severity, without behavioral disturbance, psychotic disturbance, mood disturbance, and anxiety; I25.10 Atherosclerotic heart disease of native coronary artery without angina pectoris; K21.9 Gastro-esophageal reflux disease without esophagitis; Z79.82 Long term (current) use of aspirin; Z86.73 Personal history of transient ischemic attack (TIA), and cerebral infarction without residual deficits; Z79.51 Long term (current) use of inhaled steroids; Z79.899 Other long term (current) drug therapy; E03.9 Hypothyroidism, unspecified; N39.0 Urinary tract infection, site not specified; I67.2 Cerebral atherosclerosis; Z74.09 Other reduced mobility; G40.909 Epilepsy, unspecified, not intractable, without status epilepticus
CPT/HCPCS: 36415; 36600; 70450-TC; 71045-TC; 80048-TC; 80053-TC; 80076-TC; 81000-TC; 82728-TC; 82803-TC; 83540-TC; 83735-TC; 84100-TC; 84439-TC; 84443-TC; 84484-TC; 85025-TC; 85730-TC; 87081-TC; 87086-TC; A6403; G0378; J0696; J2405; J7030; J7060

== ENCOUNTER 2019-07-05 11:04 | Inpatient (IN) | payer OTHER ==
[~2019-07-05] VITALS: Ht 154.9 cm; Wt 57.8 kg
[~2019-07-05 11:04] MED LIST changes: -ENOX40DI SQ; +FLUC150T PO; -LEVO750T46 PO; +MULT-439 GT; +POLY17PO4 GT
--- NOTE | 2019-07-05 11:10 | NUR ---
Alisa, from snf, c/o nausea vomiting x 2 days. Patient a/ox1, breathing even and unlabored, nos ob noted, needs attended, kept comfortbale.
[2019-07-05] MEDS ORDERED: ONDANSETRON HCL/PF 4 MG/2 ML VIAL IVP ONE (11:30)
[2019-07-05] MEDS ORDERED: IV NS 0.9% 1,000 ML BAG IV ONE (11:30)
[2019-07-05] MEDS ORDERED: ONDANSETRON HCL/PF 4 MG/2 ML VIAL ONE (11:41)
[2019-07-05 11:48] LABS: BASOPHILS # (AUTO) 0.1 /CMM (0.0-0.2); BASOPHILS % (AUTO) 0.7 % (0.0-2.0); EOSINOPHILS % (AUTO) 12.9 % (0.0-6.0); HEMATOCRIT 32 % (33-45); HEMOGLOBIN 10.8 g/dL (11.5-14.8); LYMPHOCYTES # (AUTO) 1.6 /CMM (0.8-4.8); LYMPHOCYTES % (AUTO) 18.3 % (20.0-44.0); MEAN CORPUSCULAR HGB CONC 33 g/dl (31.0-36.0); MEAN CORPUSCULAR VOLUME 86 fL (82-100); MONOCYTES # (AUTO) 0.9 /CMM (0.1-1.30); MONOCYTES % (AUTO) 10.3 % (2.0-12.0); NEUTROPHILS % (AUTO) 57.8 % (43.0-81.0); PLATELET COUNT (AUTO) 266 /CMM (150-450); RED BLOOD CELL COUNT(AUTO) 3.76 MIL/uL (4.0-5.2); WHITE BLOOD COUNT (AUTO) 8.7 K/uL (4.3-11.0)
[2019-07-05 11:56] LABS: CALCIUM, SERUM 8.6 mg/dL (8.5-10.1); CREATININE 0.8 mg/dL (0.6-1.3); POTASSIUM 4.1 mmol/L (3.5-5.1)
[2019-07-05 12:03] LABS: ALBUMIN 2.8 g/dL (3.4-5.0); BILIRUBIN,DIRECT 0.1 mg/dL (0.0-0.2); BILIRUBIN,TOTAL 0.4 mg/dL (0.2-1.0); TOTAL PROTEIN, SERUM 8.1 g/dL (6.4-8.2)
[2019-07-05] MEDS ORDERED: ASCO500T10 GT (12:55)
--- NOTE | 2019-07-05 13:38 | NUR ---
ER DOC ON PHONE WITH HOSPITALIST
--- NOTE | 2019-07-05 13:38 | NUR ---
AUTHORIZED TO STAY ACCORDING TO PHOTOENGRAVER
--- NOTE | 2019-07-05 14:10 | NUR ---
MED SURG BED REQUESTED FROM NURSING WET SILK HANGER.
--- NOTE | 2019-07-05 14:15 | NUR ---
BED ASSIGN 202
--- NOTE | 2019-07-05 14:20 | NUR ---
REPORT GIVEN TO CHAPINCITO SHEA.
--- NOTE | 2019-07-05 15:47 | NUR ---
PATIENT TRANSFERRED TO ROOM 202, IN STABLE CONDITION, IV LINE PATENT AND FLUSHES WELL.
[2019-07-05 16:00] VITALS: BP 136/100
--- NOTE | 2019-07-05 16:00 | NUR ---
SEWER INSPECTOR NOTES PATIENT ADMITTED FROM ER A/O X1/2 FEMALE , CHINESE SPEAKER MED /SURGE ON Dx OF DEHYDRATION/MALNOURISHMENT. PATIENT HAS NO ACUTE RESPIRATORY DISTRESS ROOM AIR, UNLABORED BREATHING. PATIENT REDIRECTABLE TOTAL CARE INCONTINENT. V/S TAKEN BP 126/100, P-74, R-18, O2-99 ROOM AIR, T-98.4. SKIN ASSESSMENT DONE PICTURE TAKEN, IV ACCESS ON LEFT AC AREA INTACT SL. GT INTACT. NEEDS ATTENDED AND ANTICIPATED. DNP DEEPA CELESTIN AWARE OF NEW PATIENT AND MEDICATION. CALL LIGHT WITHIN TO REACH. ASSIST TURN AND REPOSTION Q 2 HR. CONTINUED MONITORING.
--- NOTE | 2019-07-05 18:30 | NUR ---
RN NOTES PATIENT IN THE BED NO ACUTE RESPIRATORY DISTRESS, DEEPA CELESTIN DNP NOTIFIED AGAIN NEW MEDICATION INSERTION. ENDORSED ONCOMING NURSE FOLLOW PLAN OF CARE.
[2019-07-05] MEDS ORDERED: Z GUARD REMEDY 2 OZ OINT TP PRN ×2 (19:00→21:00)
[2019-07-05 20:00] VITALS: BP 132/63
[2019-07-05] MEDS ORDERED: NA PHOS,M-B/NA PHOS,DI-BA 1 EA ENEMA RC PRN (21:00)
[2019-07-05] MEDS ORDERED: POLYETHYLENE GLYCOL 3350 17 GM POWD.PACK GT PRN (21:00)
[2019-07-05] MEDS ORDERED: HYDROCODONE/APAP 5/325MG 1 EACH TABLET PO PRN (21:00)
[2019-07-05] MEDS ORDERED: ONDANSETRON HCL/PF 4 MG/2 ML VIAL IVP PRN (21:00)
[2019-07-05] MEDS ORDERED: MAG HYDROX/AL HYDROX/SIMETH 30 ML UDC GT PRN (21:00)
[2019-07-05] MEDS ORDERED: MAGNESIUM HYDROXIDE 30 ML UDC GT PRN (21:00)
[2019-07-05] MEDS ORDERED: ZOLPIDEM TARTRATE 5 MG TABLET PO PRN (21:00)
[2019-07-05] MEDS ORDERED: ACETAMINOPHEN 325 MG TABLET PO PRN (21:00)
[2019-07-05] MEDS ORDERED: ALBUTEROL FS 2.5 MG/3 ML VIAL.NEB IH PRN (21:00)
[2019-07-05] MEDS: IV 1/2NS 1000 ML 1,000 ML IV PRN (22:56)
[2019-07-05] MEDS: MEMANTINE HCL 5 MG TABLET GT SCH (23:06)
[2019-07-05] MEDS: DONEPEZIL 5 MG TABLET GT SCH (23:06)
--- NOTE | 2019-07-06 01:28 | NUR ---
MS2/RN PATIENT IS SLEEPING AT THIS TIME, APPEAR COMFORTABLE, NO SIGNS OF DISTRESS NOTED, CALL LIGHT IN REACH. WILL CONTINUE TO MONITOR.
--- NOTE | 2019-07-06 06:05 | NUR ---
MS2/RN PATIENT APPEAR SLEEPING AT THIS TIME, APPEAR COMFORTABLE, NO SIGNS OF DISTRESS NOTED, CALL LIGHT IN REACH. WILL CONTINUE TO MONITOR.
--- NOTE | 2019-07-06 07:19 | NUR ---
MS RN OPENING NOTES RECEIVED PATIENT AWAKE IN BED IN NO ACUTE SIGNS OF DISTRESS. HOB ELEVATED. A/O X1. UPPER SORBIAN SPEAKING, SEEMS COMFORTABLE WITH NO FACIAL GRIMACING OR MOANING NOTED AT THIS TIME. ON ROOM AIR, BREATHING EVEN AND UNLABORED. IV ACCESS ON LAC G#20 INTACT AND PATENT, IVF OF 1/2 NS @75ML/HR INFUSING WELL. G-TUBE IN PLACE AND PATENT. ASPIRATION PRECAUTIONS MAINTAINED. SAFETY MEASURES IN PLACE: BED IN LOWEST LOCKED POSITION WITH SR UP X2. CALL LIGHT IN REACH. WILL CONTINUE TO MONITOR
[2019-07-06] MEDS ORDERED: PANTOPRAZOLE 40 MG TABLET.DR PO SCH (07:30)
[2019-07-06] MEDS: PANTOPRAZOLE 40 MG/PACK PACK GT SCH (07:42)
[2019-07-06] MEDS: LEVOTHYROXINE SODIUM 75 MCG TABLET GT SCH (07:42)
[2019-07-06] MEDS: MULTIVITAMINS,THERAGRAN 1 UDTAB TABLET GT SCH (08:13)
[2019-07-06] MEDS: ASPIRIN 81 MG TAB.CHEW GT SCH (08:13)
[2019-07-06] MEDS: PROSOURCE / PROSTAT (PYXIS) 30 ML UDC GT SCH (08:13)
[2019-07-06] MEDS: ASCORBIC ACID 500 MG TABLET GT SCH (08:13)
[2019-07-06] MEDS: VALPROIC ACID 250 MG/5 ML UDC GT SCH ×3 (08:13→17:46)
[2019-07-06] MEDS: CHOLECALCIFEROL 1,000 UNIT TABLET (VIT D3) PO SCH (08:13)
[2019-07-06] MEDS: AMIODARONE HCL 200 MG TABLET GT SCH (08:14)
--- NOTE | 2019-07-06 11:52 | NUR ---
RN NOTES PT HAD SWALLOW EVALUATION DONE BY ST AND WAS PLACED ON CARDIAC PUREED DIET. WILL MONITOR FOR TOLERANCE AND S/S OF ASPIRATION
[2019-07-06] MEDS: IV 1/2NS 1000 ML 1,000 ML IV PRN (11:59)
[2019-07-06 12:05] VITALS: BP 135/79
[2019-07-06] MEDS: CLOTRIMAZOLE/BETAMETASONE DIPROPIONATE 15 GM TUBE TP SCH ×2 (13:19→17:46)
[2019-07-06 14:01] LABS: CALCIUM, SERUM 8.5 mg/dL (8.5-10.1); CREATININE 0.6 mg/dL (0.6-1.3); MAGNESIUM 1.9 mg/dL (1.8-2.4); PHOSPHORUS 3.8 mg/dL (2.5-4.9); POTASSIUM 4.1 mmol/L (3.5-5.1)
[2019-07-06 14:18] LABS: BASOPHILS % (AUTO) 0.5 % (0.0-2.0); EOSINOPHILS % (AUTO) 14.7 % (0.0-6.0); HEMATOCRIT 32 % (33-45); HEMOGLOBIN 10.5 g/dL (11.5-14.8); LYMPHOCYTES # (AUTO) 1.5 /CMM (0.8-4.8); LYMPHOCYTES % (AUTO) 18.3 % (20.0-44.0); MEAN CORPUSCULAR HGB CONC 33 g/dl (31.0-36.0); MEAN CORPUSCULAR VOLUME 86 fL (82-100); MONOCYTES # (AUTO) 0.6 /CMM (0.1-1.30); MONOCYTES % (AUTO) 6.9 % (2.0-12.0); NEUTROPHILS # (AUTO) 4.9 /CMM (1.8-8.9); NEUTROPHILS % (AUTO) 59.6 % (43.0-81.0); PLATELET COUNT (AUTO) 272 /CMM (150-450); RED BLOOD CELL COUNT(AUTO) 3.71 MIL/uL (4.0-5.2); WHITE BLOOD COUNT (AUTO) 8.2 K/uL (4.3-11.0)
[2019-07-06 15:19] LABS: APPEARANCE,URINE CLOUDY (CLEAR); BILIRUBIN,URINE NEGATIVE (NEGATIVE); BLOOD, URINE SMALL Ery/uL (NEGATIVE); KETONES,URINE NEGATIVE (NEGATIVE); LEUKOCYTE ESTERASE ,URINE LARGE (NEGATIVE); NITRITE, URINE NEGATIVE (NEGATIVE); PH,URINE 7.5 (5.0-8.0); PROTEIN,URINE NEGATIVE (NEGATIVE); UGLUCOSE NEGATIVE (NEGATIVE); UROBILINOGEN,URINE 0.2 EU/dL (0.2)
[2019-07-06 15:30] LABS: COLOR,URINE STRAW (YELLOW)
[2019-07-06 16:00] VITALS: BP 135/79
[2019-07-06 16:42] LABS: BACTERIA,URINE Rare /HPF (None Seen); SQUAMOUS EPITHELIAL CELL,UR Rare /HPF (None Seen); WBC,URINE 21-50 /HPF (0-3)
--- NOTE | 2019-07-06 17:51 | NUR ---
RN NOTES PT NOTED WITH POSITIVE MRSA OF NARE SLIGHT GROWTH AND URINE WBC 20-50. DR CELESTIN MADE AWARE WITH NO NEW ORDER AT THIS TIME.
[2019-07-06] MEDS: IV NS 0.9% 1,000 ML IV PRN (18:33)
--- NOTE | 2019-07-06 18:42 | NUR ---
MS RN CLOSING NOTES PATIENT IN BED AWAKE AND LYING AT SEMI-FOWLERS POSITION AT THIS TIME. FAMILY AT BEDSIDE. A/O X1. KYRGYZ SPEAKING. PT ON CONTACT PRECAUTIONS FOR MRSA OF NARE. TO START ON BACTROBAN OINTMENT Q12HRS PER MD ORDER. ON ROOM AIR, BREATHING EVEN AND UNLABORED. IV ACCESS ON LAC G#20 INTACT AND PATENT, IVF OF NS @75ML/HR INFUSING WELL. G-TUBE IN PLACE AND PATENT. ASPIRATION PRECAUTIONS MAINTAINED. SAFETY MEASURES IN PLACE: BED IN LOWEST LOCKED POSITION WITH SR UP X2. CALL LIGHT IN REACH. PT TURNED AND REPOSITIONED Q 2HRS AND PRN. ALL NEEDS AND CARE PROVIDED WELL. WILL ENDORSE TO NIGHT SHIF NURSE FOR FERMIN.
--- NOTE | 2019-07-06 19:55 | NUR ---
MS2/RN PATIENT IS AWAKE, FLAT AFFECT, NOT VERBALLY RESPONSIVE AT THIS TIME, NO SIGNS OF DISTRESS NOTED, NEEDS ATTENDED, CALL LIGHT IN REACH, FALL PRECAUTIONS, WILL MONITOR.
[2019-07-06 20:00] VITALS: BP 128/81
[2019-07-06] MEDS ORDERED: CEFTRIAXONE 1 G in IV D5W 50 ML IV SCH (20:00)
[2019-07-06] MEDS: DONEPEZIL 5 MG TABLET GT SCH (21:28)
[2019-07-06] MEDS: MEMANTINE HCL 5 MG TABLET GT SCH (21:28)
[2019-07-06] MEDS: MUPIROCIN OINT 2% 22 GM TUBE SCH (21:39)
--- NOTE | 2019-07-07 06:35 | NUR ---
MS2/RN PATIENT IS SLEEPING, APPEAR COMFORTABLE, NO SIGNS OF DISTRESS NOTED, ALL NEEDS ATTENDED AT THIS TIME, WILL CONTINUE TO MONITOR.
[2019-07-07] MEDS: IV NS 0.9% 1,000 ML IV PRN (07:01)
[2019-07-07 07:57] LABS: CALCIUM, SERUM 8.1 mg/dL (8.5-10.1); CREATININE 0.6 mg/dL (0.6-1.3); MAGNESIUM 1.8 mg/dL (1.8-2.4); PHOSPHORUS 3.8 mg/dL (2.5-4.9); POTASSIUM 4.4 mmol/L (3.5-5.1)
[2019-07-07 08:00] VITALS: BP 118/50
--- NOTE | 2019-07-07 08:00 | NUR ---
MS RN OPENING NOTES RECEIVED PATIENT AWAKE IN BED IN NO ACUTE SIGNS OF DISTRESS. HOB ELEVATED. A/O X1. TAMAZIGHT SPEAKING, SEEMS COMFORTABLE WITH NO FACIAL GRIMACING OR MOANING NOTED AT THIS TIME. ON ROOM AIR, BREATHING EVEN AND UNLABORED. IV ACCESS ON LAC G#20 INTACT AND PATENT, IVF OF 1/2 NS @75ML/HR INFUSING WELL. G-TUBE IN PLACE AND PATENT. ASPIRATION PRECAUTIONS MAINTAINED. SAFETY MEASURES IN PLACE: BED IN LOWEST LOCKED POSITION WITH SR UP X2. CALL LIGHT IN REACH. WILL CONTINUE TO MONITOR.
[2019-07-07 09:11] LABS: THYROID STIMULATING HORMONE 1.529 uIU/mL (0.358-3.74); URIC ACID 1.3 mg/dL (2.6-7.2)
[2019-07-07 09:31] VITALS: BP 118/49
[2019-07-07] MEDS: ASPIRIN 81 MG TAB.CHEW GT SCH (09:31)
[2019-07-07] MEDS: AMIODARONE HCL 200 MG TABLET GT SCH (09:31)
[2019-07-07] MEDS: ASCORBIC ACID 500 MG TABLET GT SCH (09:31)
[2019-07-07] MEDS: MULTIVITAMINS,THERAGRAN 1 UDTAB TABLET GT SCH (09:31)
[2019-07-07] MEDS: CHOLECALCIFEROL 1,000 UNIT TABLET (VIT D3) PO SCH (09:31)
[2019-07-07] MEDS: VALPROIC ACID 250 MG/5 ML UDC GT SCH ×2 (09:31→12:43)
[2019-07-07] MEDS: MUPIROCIN OINT 2% 22 GM TUBE SCH (09:37)
[2019-07-07] MEDS: CLOTRIMAZOLE/BETAMETASONE DIPROPIONATE 15 GM TUBE TP SCH (09:37)
[2019-07-07] MEDS: PROSOURCE / PROSTAT (PYXIS) 30 ML UDC GT SCH (09:39)
[2019-07-07] MEDS: PANTOPRAZOLE 40 MG/PACK PACK GT SCH (09:39)
[2019-07-07] MEDS: LEVOTHYROXINE SODIUM 75 MCG TABLET GT SCH (09:39)
--- NOTE | 2019-07-07 09:54 | NUR ---
WOUND CARE CONSULT WOUND CARE RECEIVED CONSULT FOR REDNESS TO SACRAL AREA AND FOOT WOUND. WOUND CARE WILL DEFER CONSULT AND TREATMENT PLANS TO PLASTIC SURGICAL TEAM WELL DPAlex RIVERA THEY ARE CURRENTLY FOLLOWING THIS PATIENT. PATIENT WITH JOSE AT 15, ALL PRESSURE ULCER PREVENTION MEASURES ARE NOTED TO BE IN PLACE AT THIS TIME. WILL SEE PRN.
[2019-07-07] MEDS ORDERED: CEPH-569 PO (10:51)
[2019-07-07] MEDS ORDERED: MUPI22OI7 (10:51)
[2019-07-07] MEDS ORDERED: CLOT15CR5 TP (10:51)
--- NOTE | 2019-07-07 15:30 | NUR ---
DISCHARGED PT TO [facility] VIA AMBULANCE WITH STABLE V/S.REPORT CALLED IN TO SHABBIR VAZQUEZ LUBRICATOR GRANULATOR OF [facility].IV H/L TO LFA REMOVED WITH NO BLEEDING NOTED.NOTIFIED FERNANDO,PT'S DAUGHTER AND MADE AWARE.
[2019-07-07 17:17] LABS: URINE SODIUM, RANDOM 73 mmol/l (40-220)
[2019-07-08 17:28] LABS: OSMOLALITY,URINE 247 mOS/kg (340-1090)
== END 2019-07-07 15:30 | DRG 463 ==
LOC: ER 11:06 → MEDSG2 14:30
PROVIDERS: ADMIT Nurse Practitioner Acute Care; ATTEND Nurse Practitioner Acute Care
DX: N39.0 Urinary tract infection, site not specified (principal); G93.49 Other encephalopathy; E44.0 Moderate protein-calorie malnutrition; D68.59 Other primary thrombophilia; I48.91 Unspecified atrial fibrillation; E87.1 Hypo-osmolality and hyponatremia; E46 Unspecified protein-calorie malnutrition; I11.0 Hypertensive heart disease with heart failure; I50.9 Heart failure, unspecified; R13.10 Dysphagia, unspecified; E86.0 Dehydration; Z93.1 Gastrostomy status; D63.8 Anemia in other chronic diseases classified elsewhere; F03.90 Unspecified dementia, unspecified severity, without behavioral disturbance, psychotic disturbance, mood disturbance, and anxiety; I25.10 Atherosclerotic heart disease of native coronary artery without angina pectoris; E03.9 Hypothyroidism, unspecified; K21.9 Gastro-esophageal reflux disease without esophagitis; K59.09 Other constipation; L30.4 Erythema intertrigo; Z90.49 Acquired absence of other specified parts of digestive tract; Z86.73 Personal history of transient ischemic attack (TIA), and cerebral infarction without residual deficits; Z79.82 Long term (current) use of aspirin; Z79.01 Long term (current) use of anticoagulants; Z22.322 Carrier or suspected carrier of Methicillin resistant Staphylococcus aureus; G40.909 Epilepsy, unspecified, not intractable, without status epilepticus; E86.1 Hypovolemia; I70.8 Atherosclerosis of other arteries; J98.11 Atelectasis; M20.41 Other hammer toe(s) (acquired), right foot; M20.42 Other hammer toe(s) (acquired), left foot; M85.80 Other specified disorders of bone density and structure, unspecified site
CPT/HCPCS: 36415; 71045-TC; 80048-TC; 80061-TC; 80076-TC; 81000-TC; 83690-TC; 83735-TC; 83935-TC; 84100-TC; 84300-TC; 84443-TC; 84550-TC; 85025-TC; 87081-TC; 87086-TC; 92611-TC; 97112-TC; 97530-TC; A6403; G0378; J0696; J2405; J3490; J7030; J7060

== ENCOUNTER 2019-10-08 12:12 | Emergency (ER) | payer OTHER ==
[~2019-10-08] VITALS: Ht 162.6 cm; Wt 59.4 kg
[~2019-10-08 12:12] MED LIST changes: +ASCO500T10 GT; +CEPH-569 PO; +CLOT15CR5 TP; -FLUC150T PO; +MUPI22OI7; -PANT40TA4 PO; +PANT40TA49 PO
--- NOTE | 2019-10-08 12:17 | NUR ---
DILMA FROM [facility] FOR GTUBE PLACEMENT. G TUBE GOT DISLODGE PER EMS, TO ER BED 10, GEE CATHETER IN THE STOMA FROM FACILITY. HOOKED TO MONITOR, CHANGED TO HOSP GOWN, WARM BLABKET PROVIDED, PATIENT AAO X 1, BREATHING EVEN AND UNLABORED. AWAITING MD JOHNSON.
--- NOTE | 2019-10-08 12:38 | NUR ---
DR TAPIA AT BEDSIDE FOR G-TUBE INSERTION
--- NOTE | 2019-10-08 12:43 | NUR ---
G-TUBE 20G PLACED BY DR TAPIA. COVERED WITH DRESSING.
[2019-10-08] MEDS ORDERED: IOHEXOL 50 ML IV ONE (13:12)
--- NOTE | 2019-10-08 13:21 | NUR ---
GAS MAKER AT BEDSIDE
--- NOTE | 2019-10-08 13:43 | NUR ---
CALLED [id number] RES#[id number]
--- NOTE | 2019-10-08 14:30 | NUR ---
Spoke to Fariha brown [facility]
--- NOTE | 2019-10-08 14:39 | NUR ---
Patient picked up by [facility] in stable condition. Written and verbal after care instructions given. EMT verbalizes understanding of instruction. Patient will be brought to [facility].
[2019-10-08 14:46] VITALS: BP 127/86
== END 2019-10-08 14:47 ==
LOC: ER 12:16
DX: K94.23 Gastrostomy malfunction (principal); F03.90 Unspecified dementia, unspecified severity, without behavioral disturbance, psychotic disturbance, mood disturbance, and anxiety; D64.9 Anemia, unspecified; E03.9 Hypothyroidism, unspecified; Z79.899 Other long term (current) drug therapy; Z79.82 Long term (current) use of aspirin
CPT/HCPCS: 43762; 74018; 99284; Q9967

== ENCOUNTER 2020-03-17 14:56 | Inpatient (IN) | payer OTHER ==
[~2020-03-17] VITALS: Ht 152.4 cm; Wt 61.2 kg
--- NOTE | 2020-03-17 15:00 | NUR ---
DILMA FROM [facility], COVID-19 POSITIVE, SENT BY PMD D/T R UPPER LUNG INFILTRATE. COUGH. TO ER BED 5, IN ISOLATION ROOM W NEGATIVE PRESSURE, PATIENT ON MASK. HOOKED TO MONITOR, CHANGED TO HOSP GOWN, WARM BLABKET PROVIDED, PATIENT AAO x 1. BREATHING EVEN AND UNLABORED. AWAITING MD JOHNSON
--- NOTE | 2020-03-17 15:01 | NUR ---
DR TAPIA AT BEDSIDE
--- NOTE | 2020-03-17 15:26 | NUR ---
VIVEK dasilva at bedside for EKG
--- NOTE | 2020-03-17 15:52 | NUR ---
URINE SAMPLE COLLECTED VIA STRAIGHT CATHETER AND SENT TO LAB
[2020-03-17] MEDS ORDERED: CALC-17 GT (16:20)
[2020-03-17] MEDS ORDERED: AMIN887L GT (16:20)
[2020-03-17 16:23] LABS: BASOPHILS % (AUTO) 0.9 % (0.0-2.0); EOSINOPHILS % (AUTO) 11.9 % (0.0-6.0); HEMATOCRIT 33 % (33-45); HEMOGLOBIN 10.6 g/dL (11.5-14.8); LYMPHOCYTES # (AUTO) 1.8 /CMM (0.8-4.8); MEAN CORPUSCULAR HGB CONC 32 g/dl (31.0-36.0); MEAN CORPUSCULAR VOLUME 84 fL (82-100); MONOCYTES # (AUTO) 0.7 /CMM (0.1-1.30); MONOCYTES % (AUTO) 12.4 % (2.0-12.0); NEUTROPHILS # (AUTO) 2.4 /CMM (1.8-8.9); NEUTROPHILS % (AUTO) 42.8 % (43.0-81.0); PLATELET COUNT (AUTO) 243 /CMM (150-450); RED BLOOD CELL COUNT(AUTO) 3.93 MIL/uL (4.0-5.2); WHITE BLOOD COUNT (AUTO) 5.6 K/uL (4.3-11.0)
[2020-03-17 16:40] LABS: APPEARANCE,URINE CLEAR (CLEAR); BILIRUBIN,URINE NEGATIVE (NEGATIVE); BLOOD, URINE NEGATIVE Ery/uL (NEGATIVE); COLOR,URINE YELLOW (YELLOW); LEUKOCYTE ESTERASE ,URINE NEGATIVE (NEGATIVE); NITRITE, URINE NEGATIVE (NEGATIVE); PROTEIN,URINE NEGATIVE (NEGATIVE); UGLUCOSE NEGATIVE (NEGATIVE); UROBILINOGEN,URINE 0.2 EU/dL (0.2)
[2020-03-17 16:45] LABS: CALCIUM, SERUM 8.4 mg/dL (8.5-10.1); CARBON DIOXIDE 23 mmol/L (21-32); CHLORIDE 93 mmol/L (98-107); CREATININE 0.5 mg/dL (0.6-1.3); GLUCOSE 87 mg/dL (74-106); POTASSIUM 4.6 mmol/L (3.5-5.1); SODIUM SERUM 125 mmol/L (136-145); UREA NITROGEN, BLOOD 13 mg/dL (7-18)
--- NOTE | 2020-03-17 16:56 | NUR ---
RAPID INFLUENZA AND COVID PCR SWAB DONE AND SENT TO LAB
--- NOTE | 2020-03-17 17:09 | NUR ---
bryant called awaiting dr jeramy grover
[2020-03-17 17:28] LABS: ALANINE AMINOTRANSFERASE 13 U/L (12-78); ALBUMIN 2.8 g/dL (3.4-5.0); ALKALINE PHOSPHATASE 86 U/L (46-116); ASPARTATE AMINOTRANSFERASE 28 U/L (15-37); B-TYPE NATRIURETIC PEPTIDE 849 PG/ML (0-125); BILIRUBIN,DIRECT 0.1 mg/dL (0.0-0.2); BILIRUBIN,TOTAL 0.4 mg/dL (0.2-1.0); TOTAL PROTEIN, SERUM 8.3 g/dL (6.4-8.2)
[2020-03-17] MEDS ORDERED: PIPERACILLIN /TAZOBACTAM 3.375 G in IV D5W 50 ML IV ONE (17:30)
[2020-03-17] MEDS ORDERED: IV NS 0.9% 1,000 ML BAG IV ONE (17:30)
[2020-03-17] MEDS ORDERED: VANCOMYCIN 1 GM in IV D5W 250 ML IV ONE (17:30)
[2020-03-17] MEDS ORDERED: MAGNESIUM HYDROXIDE 30 ML UDC GT PRN (18:00)
[2020-03-17] MEDS ORDERED: ACETAMINOPHEN 650 MG/20.3 ML UDC GT PRN (18:00)
[2020-03-17] MEDS ORDERED: MAG HYDROX/AL HYDROX/SIMETH 30 ML UDC PO PRN (18:00)
[2020-03-17] MEDS ORDERED: BISACODYL SUPP (10 MG) 10 MG/SUPP.RECT SUPP.RECT RC PRN (18:00)
[2020-03-17] MEDS ORDERED: ONDANSETRON HCL/PF 4 MG/2 ML VIAL IVP PRN (18:00)
[2020-03-17] MEDS ORDERED: HYDROCODONE/APAP 5/325MG TABLET GT PRN (18:00)
[2020-03-17] MEDS ORDERED: Z GUARD REMEDY 2 OZ OINT TP PRN (18:00)
[2020-03-17] MEDS ORDERED: IV NS 0.9% 1,000 ML IV PRN (18:00)
[2020-03-17] MEDS ORDERED: NA PHOS,M-B/NA PHOS,DI-BA 1 EA ENEMA RC PRN (18:00)
[2020-03-17] MEDS ORDERED: MAGNESIUM HYDROXIDE 30 ML UDC PO PRN (18:00)
[2020-03-17] MEDS ORDERED: POLYETHYLENE GLYCOL 3350 17 GM POWD.PACK GT PRN (18:00)
--- NOTE | 2020-03-17 18:07 | NUR ---
GOT BED 203
--- NOTE | 2020-03-17 18:11 | NUR ---
report given to Maegan SHEA for zachariah
--- NOTE | 2020-03-17 19:04 | NUR ---
wheeled patient via gurney accompanied by EMZT and RN in no distress. RN at bedside to assume care.
--- NOTE | 2020-03-17 19:30 | NUR ---
SALES CENTER ASSOCIATE NOTES PATIENT IN BED, AWAKE, ALERT AND ORIENTED X 1-2. BREATHING EVEN AND UNLABORED ON ROOM AIR. SHOWS NO SIGNS OF ACUTE RESPIRATORY DISTRESS. NO ACUTE PAIN. IV ON LAC 20G ITS CLEAN DRY AND INTACT. RUNNING NS AT 75ML/HR. SHOWS NO SIGNS OF INFILTRATION, NO REDNESS. BELONGINGS CHECKLIST COMPLETED, AND SKIN ASSESSMENT COMPLETED. FLUSHED GTUBE PER MD ORDER. FLUSHING WELL. SAFETY PRECAUTIONS IN PLACE. BED IN LOWEST POSITION, LOCKED, AND CALL LIGHT KEPT WITHIN REACH. WILL CONTINUE TO MONITOR.
[2020-03-17 20:00] VITALS: BP 136/58
[2020-03-17] MEDS ORDERED: DEXAMETHASONE SOD PHOSPHATE 10 MG/ML VIAL IV SCH (20:00)
[2020-03-17] MEDS: DOCUSATE SODIUM LIQ 100 MG/10 ML UDC GT SCH (20:58)
[2020-03-17] MEDS: MEMANTINE HCL 5 MG TABLET GT SCH (20:58)
[2020-03-17] MEDS: ENOXAPARIN SODIUM 40 MG/0.4 ML DISP.SYRIN SQ SCH (21:01)
[2020-03-17] MEDS: DONEPEZIL 5 MG TABLET GT SCH (21:06)
--- NOTE | 2020-03-17 22:00 | NUR ---
SUPERVISOR SCREEN MAKING NOTES SPOKE TO GRANDDAUGHTER [employer] [facility] PT RECEIVED FLU AND PNA VACCINATION IN THE FACILITY. DOES NOT REMEMBER THE DATE. WILL CONTINUE TO MONITOR.
[2020-03-18] VITALS (7 sets, daily range): BP systolic 102–159; BP diastolic 50–87
--- NOTE | 2020-03-18 | NUR ---
FIELD IRRIGATION WORKER NOTES RECEIVED ORDERS FOR DVT PUMP AND APPLIED ON PT. WILL CONTINUE TO MONITOR.
[2020-03-18] MEDS: PIPERACILLIN /TAZOBACTAM 3.375 G in IV D5W 100 ML IV SCH ×3 (01:12→17:07)
--- NOTE | 2020-03-18 06:30 | NUR ---
SLATE WORKER NOTES PATIENT IN BED, ASLEEP, ALERT AND ORIENTED X 1-2. BREATHING EVEN AND UNLABORED ON ROOM AIR. SHOWS NO SIGNS OF ACUTE RESPIRATORY DISTRESS. NO ACUTE PAIN. IV ON LAC 20G ITS CLEAN DRY AND INTACT. RUNNING NS AT 75ML/HR. SHOWS NO SIGNS OF INFILTRATION, NO REDNESS. FLUSHED GTUBE, FLUSHING WELL. ALL DUE MEDICATIONS GIVEN, ALL NEEDS ATTENDED TO. SAFETY PRECAUTIONS IN PLACE. BED IN LOWEST POSITION, LOCKED, AND CALL LIGHT KEPT WITHIN REACH. WILL ENDORSE TO ONCOMING NURSE.
[2020-03-18 06:44] LABS: BASOPHILS % (AUTO) 0.6 % (0.0-2.0); EOSINOPHILS % (AUTO) 0.1 % (0.0-6.0); HEMATOCRIT 37 % (33-45); HEMOGLOBIN 11.8 g/dL (11.5-14.8); LYMPHOCYTES # (AUTO) 1.1 /CMM (0.8-4.8); LYMPHOCYTES % (AUTO) 43.1 % (20.0-44.0); MEAN CORPUSCULAR HGB CONC 32 g/dl (31.0-36.0); MEAN CORPUSCULAR VOLUME 85 fL (82-100); MONOCYTES # (AUTO) 0.1 /CMM (0.1-1.30); MONOCYTES % (AUTO) 5.5 % (2.0-12.0); NEUTROPHILS # (AUTO) 1.2 /CMM (1.8-8.9); NEUTROPHILS % (AUTO) 50.7 % (43.0-81.0); PLATELET COUNT (AUTO) 233 /CMM (150-450); RED BLOOD CELL COUNT(AUTO) 4.32 MIL/uL (4.0-5.2); WHITE BLOOD COUNT (AUTO) 2.5 K/uL (4.3-11.0)
--- NOTE | 2020-03-18 07:10 | NUR ---
MOBILE MANAGER OPENING NOTES RECEIVED PT ON BED, AAOX1, CONFUSED WITH GUIDANCE WITH COMMAND. RESPIRATION EVEN AND NON LABORED WITH NO PRESENCE OF ACUTE RESPIRATORY DISTRESS, TOLERATING RA. ABD SOFT AND NON DISTENDED WITH ACTIVE BOWEL SOUNDS, INCONTINENT, G-TUBE IN PLACE, FLUSHING WELL, RESIDUAL 20 ML, KEPT HOB ELEVATED. NO S/SX OF PAIN AND DISCOMFORT. IV SITE AT LAC #20 RUNNING NS AT 75 ML/HR. TELE MONITOR SHOWS SR 63. BED IN LOW LOCKED POSITION, SRX2 UP FOR SAFETY. WILL CONT TO MONITOR CARE
[2020-03-18 07:43] LABS: CALCIUM, SERUM 8.7 mg/dL (8.5-10.1); CARBON DIOXIDE 20 mmol/L (21-32); CHLORIDE 93 mmol/L (98-107); CREATININE 0.5 mg/dL (0.6-1.3); GLUCOSE 153 mg/dL (74-106); MAGNESIUM 2.4 mg/dL (1.8-2.4); PHOSPHORUS 3.6 mg/dL (2.5-4.9); POTASSIUM 4.7 mmol/L (3.5-5.1); SODIUM SERUM 124 mmol/L (136-145); UREA NITROGEN, BLOOD 10 mg/dL (7-18)
[2020-03-18] MEDS: CALCIUM CARB 250MG /VITAMIN D 1 UDTAB GT SCH (08:23)
[2020-03-18] MEDS: PROSOURCE / PROSTAT (PYXIS) 30 ML UDC GT SCH (08:23)
[2020-03-18] MEDS: DOCUSATE SODIUM LIQ 100 MG/10 ML UDC GT SCH ×2 (08:23→20:55)
[2020-03-18] MEDS: VALPROIC ACID 250 MG/5 ML UDC GT SCH (08:23)
[2020-03-18] MEDS: AMIODARONE HCL 200 MG TABLET GT SCH (08:23)
[2020-03-18] MEDS: CHOLECALCIFEROL (VITAMIN D 3) 400 UNIT TABLET PO SCH (08:23)
[2020-03-18] MEDS: MULTIVIT W/MINERALS 1 TAB TABLET GT SCH (08:23)
[2020-03-18] MEDS: ASPIRIN 81 MG TAB.CHEW GT SCH (08:23)
[2020-03-18 10:36] LABS: LYMPHOCYTES % (MANUAL) 43 % (16-48); MONOCYTES % (MANUAL) 6 % (0-11.0); NEUTROPHILS % (MANUAL) 51 (42-76)
[2020-03-18] MEDS: MEMANTINE HCL 5 MG TABLET GT SCH (17:07)
[2020-03-18 17:17] LABS: URINE SODIUM, RANDOM 37 mmol/l (40-220)
[2020-03-18 17:35] LABS: OSMOLALITY,URINE 218 mOS/kg (340-1090)
--- NOTE | 2020-03-18 18:41 | NUR ---
COMPUTER SCIENCE PROFESSOR CLOSING NOTES PT A/OX1, CONFUSED. NO PRESENCE OF ACUTE RESPIRATORY DISTRESS, ON RA. NO S/SX OF PAIN AND DISCOMFORT. NO NEW OPEN SKIN BREAKDOWN. LITTLE BM TODAY PER INTEGRATED CIRCUITS INSPECTOR. PENDING COVID PCR. IV PATENT IN FLUSHING AT LAC #20. ALL CARE ATTENDED. ENDORSED TO NEXT SHIFT WITHOUT FERMIN. Addendum: 03/18/20 at 1850 by RADHA SANTIAGO RN TELE MONITOR SHOWS SINUS RHYTHM 66.
--- NOTE | 2020-03-18 19:05 | NUR ---
ON CARDIAC TELE SR 70
--- NOTE | 2020-03-18 19:05 | NUR ---
BUSINESS UNIT LEADER OPENING NOTES RECEIVED PATIENT IN BED AWAKE ALERT AND ORIENTED X1-2, NOTED WITH PERIODS OF CONFUSION,FORGETFULNESS, ON COVID ISOLATION AWAITING PCR RESULTS, RESPIRATIONS EVEN AND UNLABORED WITH EQUAL RISE AND FALL OF CHEST, DENIES ANY PAIN OR DISCOMFORT AT THIS TIME, IV SITE TO LEFT AC #20G INTACT AND PATENT, NO REDNESS, NO INFILTRATION,SAFETY PRECAUTIONS RENDERED, LOW BED AND LOCKED, BED ALARM IN PLACE, REMAINS COMFORTABLE AT THIS TIME, ALL NEEDS ATTENDED WILL CONTINUE TO MONITOR.
[2020-03-18] MEDS: ENOXAPARIN SODIUM 40 MG/0.4 ML DISP.SYRIN SQ SCH (20:57)
[2020-03-18] MEDS: DONEPEZIL 5 MG TABLET GT SCH (21:00)
[2020-03-19] VITALS: BP 131/78
[2020-03-19] MEDS: PIPERACILLIN /TAZOBACTAM 3.375 G in IV D5W 100 ML IV SCH ×3 (01:22→17:21)
[2020-03-19 04:00] VITALS: BP 149/99
--- NOTE | 2020-03-19 06:25 | NUR ---
DERMATOLOGIST AND DERMATOPATHOLOGIST CLOSING NOTES PATIENT IN BED AWAKE ALERT AND ORIENTED X1-2, NOTED WITH PERIODS OF CONFUSION,FORGETFULNESS, ON COVID ISOLATION AWAITING PCR RESULTS, RESPIRATIONS EVEN AND UNLABORED WITH EQUAL RISE AND FALL OF CHEST, DENIES ANY PAIN OR DISCOMFORT AT THIS TIME, IV SITE TO LEFT AC #20G INTACT AND PATENT, NO REDNESS, NO INFILTRATION,SAFETY PRECAUTIONS RENDERED, DUE MEDS GIVEN ORDERED, NO ADVERSE REACTIONS ,LOW BED AND LOCKED, BED ALARM IN PLACE, REMAINS COMFORTABLE AT THIS TIME, ALL NEEDS ATTENDED WILL CONTINUE TO MONITOR AND ENDORSE TO NEXT SHIFT. REPOSITIONED Q2HRS, WOUND CARE PROVIDED TO SACRAL AND RIGHT FOOT AND OFFLOADED.
--- NOTE | 2020-03-19 06:26 | NUR ---
ON CLIENT REPRESENTATIVE SR 62
[2020-03-19 06:55] LABS: CALCIUM, SERUM 8.2 mg/dL (8.5-10.1); CREATININE 0.8 mg/dL (0.6-1.3); MAGNESIUM 2.3 mg/dL (1.8-2.4); PHOSPHORUS 3.3 mg/dL (2.5-4.9); POTASSIUM 3.7 mmol/L (3.5-5.1)
[2020-03-19 07:05] LABS: C-REACTIVE PROTEIN 1.4 mg/dL (0.0-0.9)
--- NOTE | 2020-03-19 07:10 | NUR ---
JOB DEVELOPER OPENING NOTES RECEIVED PATIENT IN BED, AWAKE, A/O X1. PATIENT ON ROOM AIR; BREATHING IS EVEN AND UNLABORED; NO SOB NOTED AT THIS POINT. TELE MONITOR WITH A CURRENT SIGN OF NORMAL SINUS RHYTHM 64 BPM. LAC IV ACCESS G # 20 PRESENT AND INTACT. NO COMPLAINS OF PAIN. SAFETY PRECAUTIONS IN PLACE; BED IN LOW POSITION AND LOCKED, RAILS UPX2, CALL LIGHT WITHIN NORMAL LIMITS.
--- NOTE | 2020-03-19 07:53 | NUR ---
ART CONSULTANT COVID RESULTS LAB JUST CALLED WITH POSITIVE RESULT FOR COVID-19. NOTIFIED.
[2020-03-19 08:00] VITALS: BP 155/61
[2020-03-19] MEDS: VALPROIC ACID 250 MG/5 ML UDC GT SCH (08:34)
[2020-03-19] MEDS: CALCIUM CARB 250MG /VITAMIN D 1 UDTAB GT SCH (08:34)
[2020-03-19] MEDS: CHOLECALCIFEROL (VITAMIN D 3) 400 UNIT TABLET PO SCH (08:34)
[2020-03-19] MEDS: DOCUSATE SODIUM LIQ 100 MG/10 ML UDC GT SCH ×2 (08:34→21:23)
[2020-03-19] MEDS: MULTIVIT W/MINERALS 1 TAB TABLET GT SCH (08:34)
[2020-03-19] MEDS: ASPIRIN 81 MG TAB.CHEW GT SCH (08:34)
[2020-03-19] MEDS: AMIODARONE HCL 200 MG TABLET GT SCH (08:36)
[2020-03-19] MEDS: PROSOURCE / PROSTAT (PYXIS) 30 ML UDC GT SCH (08:39)
--- NOTE | 2020-03-19 09:25 | NUR ---
WOUND CARE CONSULT: REVIEWED CHART, NURSING DOCUMENTATION AND PHOTOS WHICH INDICATE SACRAL SCARRING WHICH EXTENDS TO BUTTOCKS, RT FOOT WOUND, G TUBE SITE REDNESS, PRESENT ON ADMISSION. PER NURSING STAFF PT IS PICKING AT HER SKIN, INCLUDING HER NOSE. RECOMMENDATIONS MADE FOR SKIN PROTECTION. DISCUSED WITH NURSING STAFF. [facility]. DR RODRIGUEZ AND DR RIVERA NOTIFED OF PT ADMISSION/CONSULT REQUESTS.
[2020-03-19 12:00] VITALS: BP 146/49
[2020-03-19 16:00] VITALS: BP 145/56
[2020-03-19] MEDS: MEMANTINE HCL 5 MG TABLET GT SCH (17:19)
[2020-03-19] MEDS: DOXYCYCLINE HYCLATE (100 MG) 100 MG TABLET PO SCH (18:31)
--- NOTE | 2020-03-19 18:37 | NUR ---
CERTIFIED SURGICAL ASSISTANT CLOSING NOTES PATIENT REMAINS IN BED, AWAKE, A/O X1. PATIENT ON ROOM AIR; BREATHING IS EVEN AND UNLABORED; NO SOB NOTED DURING SHIFT. TELE MONITOR WITH A CURRENT READING OF NORMAL SINUS RHYTHM 65 BPM. LAC IV ACCESS G # 20 PRESENT AND INTACT. ALL NEEDS ATTENDED TO THROUGHOUT THE DAY. NO COMPLAINS OF PAIN DURING SHIFT. SAFETY PRECAUTIONS IN PLACE; BED IN LOW POSITION AND LOCKED, RAILS UPX2, CALL LIGHT WITHIN REACH. WILL ENDORSE TO SUPERVISOR SHED WORKERS NURSE.
--- NOTE | 2020-03-19 19:30 | NUR ---
SERVICES MANAGER OPENING NOTE RECEIVED PATIENT IN BED. A/OX1-2, VIETNAMESE SPEAKING. TOLERATING ROOM AIR. RESPIRATIONS ARE EVEN AND UNLABORED. NO S/S SOB NOTED. NO C/O OR S/S OF PAIN AT THIS TIME. EXTERNAL TELE MONITOR READS SINUS RHYTHM HR 63. IN NO APPARENT DISTRESS. IV ACCESS IN LAC #20 CURRENTLY RUNNING ZOSYN@25ML/HR. GTUBE IS PRESENT, NO RESIDUAL, CLAMPED, NO FEEDING. BED IS LOW AND LOCKED, HOB ELEVATED IN SEMI FOWLERS, SIDE RAILS UP X2, CALL LIGHT WITHIN REACH. WILL CONTINUE TO MONITOR.
[2020-03-19 20:00] VITALS: BP 140/69
[2020-03-19] MEDS: CEFEPIME 2 GM in IV D5W 100 ML IV SCH (20:12)
[2020-03-19] MEDS: MUPIROCIN OINT 2% 22 GM TUBE NS SCH (21:23)
[2020-03-19] MEDS: DONEPEZIL 5 MG TABLET GT SCH (21:23)
[2020-03-19] MEDS: ENOXAPARIN SODIUM 40 MG/0.4 ML DISP.SYRIN SQ SCH (21:27)
[2020-03-20] VITALS (7 sets, daily range): BP systolic 90–148; BP diastolic 61–97
[2020-03-20] MEDS: DOXYCYCLINE HYCLATE (100 MG) 100 MG TABLET PO SCH ×2 (05:33→17:39)
--- NOTE | 2020-03-20 05:33 | NUR ---
telecommunication lines repairer note administered prn tylenol 650mg for slight temp 99.3. will continue to monitor.
--- NOTE | 2020-03-20 06:27 | NUR ---
SAND CONTROL WORKER CLOSING NOTE PATIENT IS RESTING IN BED. A/OX1-2. REMAINS TOLERATING ROOM AIR. RESPIRATIONS ARE EVEN AND UNLABORED. NO RESP DISTRESS NOTED. NO C/O OR S/S OF PAIN THROUGHOUT SHIFT. EXTERNAL TELE MONITOR READS SINUS RHYTHM WITH 1ST DEGREE AVB HR 65. NO DISTRESS. IV ACCESS MAINTAINED IN LAC #20SALINE LOCKED. GTUBE IS MAINTAINED, DRESSING IN PLACE, CLAMPED, NO FEEDING. BED REMAINS IN LOWEST POSITION AND LOCKED, HOB ELEVATED IN SEMI FOWLERS, SIDE RAILS UP X3, CALL LIGHT WITHIN REACH, BED ALARM ON, DVT PUMPS ON. WILL ENDORSE TO NEXT SHIFT.
[2020-03-20 07:43] LABS: CALCIUM, SERUM 8.6 mg/dL (8.5-10.1); CREATININE 0.7 mg/dL (0.6-1.3); MAGNESIUM 2.1 mg/dL (1.8-2.4); PHOSPHORUS 3.1 mg/dL (2.5-4.9); POTASSIUM 4.1 mmol/L (3.5-5.1)
--- NOTE | 2020-03-20 07:53 | NUR ---
Tele/RN - Assessment Patient is A/O x 1-2, no complaints overnight, afebrile, denies pain, stable on room air, saturating well, tele shows SR with first degree AVB. Saline lock on the LAC is patent, intact, with no signs of infiltration. GT in place for medication and hydration, no residual. Patient with multiple skin breakdown, wound treatment done as ordered. Labs reviewed noted with low sodium, Dr. Butler at bedside made aware. Fall, aspiration, contact, droplet precautions maintained for positive Covid-19/MRSA nares. Will continue with current medical management.
[2020-03-20 07:55] LABS: THYROID STIMULATING HORMONE 1.903 uIU/mL (0.358-3.74); URIC ACID 1.9 mg/dL (2.6-7.2)
[2020-03-20 08:00] LABS: C-REACTIVE PROTEIN 2.7 mg/dL (0.0-0.9)
[2020-03-20] MEDS: CALCIUM CARB 250MG /VITAMIN D 1 UDTAB GT SCH (08:19)
[2020-03-20] MEDS: MULTIVIT W/MINERALS 1 TAB TABLET GT SCH (08:19)
[2020-03-20] MEDS: ASPIRIN 81 MG TAB.CHEW GT SCH (08:20)
[2020-03-20] MEDS: VALPROIC ACID 250 MG/5 ML UDC GT SCH (08:20)
[2020-03-20] MEDS: CHOLECALCIFEROL (VITAMIN D 3) 400 UNIT TABLET PO SCH (08:20)
[2020-03-20] MEDS: AMIODARONE HCL 200 MG TABLET GT SCH (08:20)
[2020-03-20] MEDS: DOCUSATE SODIUM LIQ 100 MG/10 ML UDC GT SCH ×2 (08:20→21:17)
[2020-03-20] MEDS: PROSOURCE / PROSTAT (PYXIS) 30 ML UDC GT SCH (08:21)
[2020-03-20] MEDS: MUPIROCIN OINT 2% 22 GM TUBE NS SCH ×2 (08:24→21:17)
[2020-03-20] MEDS: CEFEPIME 2 GM in IV D5W 100 ML IV SCH ×2 (08:49→20:04)
--- NOTE | 2020-03-20 13:00 | NUR ---
Tele/RN - Notes Patient resting comfortably, denies SOB, on room air, no c/o pain, needs attended. Will continue to monitor closely.
[2020-03-20] MEDS: MEMANTINE HCL 5 MG TABLET GT SCH (17:39)
--- NOTE | 2020-03-20 18:44 | NUR ---
Tele/RN - End of shift summary No significant change in condition seen, SR with first degree AVB on the monitor, remain afebrile, no c/o pain, stable on room air. All needs attended. Family updated on plan of care. Will continue with current medical management.
--- NOTE | 2020-03-20 19:28 | NUR ---
RN OPENING NOTES Patient received resting in bed a/o x 1. Stable on ra with breathing even and unlabored. No sob noted. No signs of acute distress. No signs of pain or discomfort- no facial grimacing noted. Tele monitor reading sr with 1st degree avb. G tube noted and in place for meds and liquid. IV located on LAC #20 sl. Safety precautions in place with bed in lowest position, call light within reach, breaks on, side rails up. Will continue to monitor throughout the night.
[2020-03-20] MEDS: DONEPEZIL 5 MG TABLET GT SCH (21:17)
[2020-03-20] MEDS: ENOXAPARIN SODIUM 40 MG/0.4 ML DISP.SYRIN SQ SCH (21:17)
[2020-03-21] VITALS: BP 156/80
[2020-03-21 04:00] VITALS: BP 148/66
[2020-03-21] MEDS: DOXYCYCLINE HYCLATE (100 MG) 100 MG TABLET PO SCH ×2 (06:24→17:20)
--- NOTE | 2020-03-21 06:42 | NUR ---
RN OPENING NOTES Patient resting in bed a/o x 1. Stable on ra with breathing even and unlabored. No sob noted. No signs of acute distress. No signs of pain or discomfort- no facial grimacing noted. Tele monitor reading sr with 1st degree avb. G tube noted and in place for meds and liquid. IV located on LAC #20 sl. Safety precautions in place with bed in lowest position, call light within reach, breaks on, side rails up. All needs attended to. Will endorse to oncoming shift about zachariah.
[2020-03-21 07:07] LABS: BASOPHILS % (AUTO) 0.5 % (0.0-2.0); EOSINOPHILS % (AUTO) 1.9 % (0.0-6.0); HEMATOCRIT 34 % (33-45); HEMOGLOBIN 11.2 g/dL (11.5-14.8); LYMPHOCYTES # (AUTO) 1.7 /CMM (0.8-4.8); LYMPHOCYTES % (AUTO) 29.2 % (20.0-44.0); MEAN CORPUSCULAR HGB CONC 33 g/dl (31.0-36.0); MEAN CORPUSCULAR VOLUME 83 fL (82-100); MONOCYTES # (AUTO) 1.4 /CMM (0.1-1.30); NEUTROPHILS # (AUTO) 2.7 /CMM (1.8-8.9); NEUTROPHILS % (AUTO) 45.4 % (43.0-81.0); PLATELET COUNT (AUTO) 261 /CMM (150-450); RED BLOOD CELL COUNT(AUTO) 4.11 MIL/uL (4.0-5.2)
[2020-03-21 07:23] LABS: CALCIUM, SERUM 8.1 mg/dL (8.5-10.1); CREATININE 0.6 mg/dL (0.6-1.3)
--- NOTE | 2020-03-21 07:35 | NUR ---
TELE/RN OPENING NOTES RECEIVED PATENT ON BED AWAKE ALERT AND ORIENTED X 1-2. PATIENT IN NO APPARENT RESPIRATORY DISTRESS NOTED. PATIENT NO SIGN AND SYMPTOM PAIN AT THIS TIME. WILL CONTINUE TO MONITOR.
[2020-03-21 08:00] VITALS: BP 167/80
[2020-03-21] MEDS: CEFEPIME 2 GM in IV D5W 100 ML IV SCH (08:59)
[2020-03-21] MEDS: CHOLECALCIFEROL (VITAMIN D 3) 400 UNIT TABLET PO SCH (09:01)
[2020-03-21] MEDS: CALCIUM CARB 250MG /VITAMIN D 1 UDTAB GT SCH (09:01)
[2020-03-21] MEDS: AMIODARONE HCL 200 MG TABLET GT SCH (09:01)
[2020-03-21] MEDS: ASPIRIN 81 MG TAB.CHEW GT SCH (09:01)
[2020-03-21] MEDS: MULTIVIT W/MINERALS 1 TAB TABLET GT SCH (09:01)
[2020-03-21] MEDS: DOCUSATE SODIUM LIQ 100 MG/10 ML UDC GT SCH (09:02)
[2020-03-21] MEDS: PROSOURCE / PROSTAT (PYXIS) 30 ML UDC GT SCH (09:02)
[2020-03-21] MEDS: VALPROIC ACID 250 MG/5 ML UDC GT SCH (09:02)
[2020-03-21] MEDS: MUPIROCIN OINT 2% 22 GM TUBE NS SCH (09:09)
[2020-03-21] MEDS ORDERED: DOXY100T2 PO (10:06)
[2020-03-21 12:19] LABS: BAND % (MANUAL) 3 % (0.0-5.0); EOSINOPHILS % (MANUAL) 2 % (0-4); LYMPHOCYTES % (MANUAL) 26 % (16-48); MONOCYTES % (MANUAL) 21 % (0-11.0); MYELOCYTES % 1 % (0-0); NEUTROPHILS % (MANUAL) 47 (42-76)
[2020-03-21 16:00] VITALS: BP 144/58
[2020-03-21] MEDS: MEMANTINE HCL 5 MG TABLET GT SCH (17:19)
--- NOTE | 2020-03-21 19:30 | NUR ---
MS/RN NOTES PATIENT IS ON BED. ALERT AND ORIENTED X 1-2. PATIENT IN NO APPARENT RESPIRATORY DISTRESS NOTED AT THIS TIME. SEEN AND EXAMINED BY MD WITH ORDERS MADE AND CARRIED OUT. ALL DUE MEDICATIONS WAS GIVEN. SAFETY PRECAUTION WAS IN PLACED . BED IN LOWEST POSITION AND LOCKED. SIDE RAILS UP X2. CALL LIGHT WITHIN REACH. PATIENT FOR DISCHARGE TONIGHT TO [facility]. ENDORSED TO COLLIN SHEA.
[2020-03-21 20:00] VITALS: BP 124/78
--- NOTE | 2020-03-21 20:00 | NUR ---
SUPERVISOR STAVE FINISHING NOTES RECEIVED RSTING COMFORTABLY ON BED,BREATHING REGULAR,NOT IN ANY FORM OF DISTRESS.ISOLATION FOR COVID POSITIVE. AND MRSA NARES.SALINE LOCK REMOVED ON LEFT FORE ARM,PATIENT AWAITING WALLPAPER REMOVER STEAM GOING TO [facility].VITAL SIGNS STABLE.CALL LIGHT IN REACH,NEEDS ANTICIPATED.
--- NOTE | 2020-03-21 20:20 | NUR ---
BEEKEEPER NOTES LEFT [facility] UNIT VIA AMBULANCE IN STABLE CONDITION.
== END 2020-03-21 20:20 | DRG 137 ==
LOC: ER 14:58 → TELE2 18:17
PROVIDERS: ADMIT Internal Medicine; ATTEND Internal Medicine
DX: U07.1 COVID-19 (principal); J12.89 Other viral pneumonia; J96.01 Acute respiratory failure with hypoxia; Z93.1 Gastrostomy status; I48.0 Paroxysmal atrial fibrillation; I25.10 Atherosclerotic heart disease of native coronary artery without angina pectoris; I11.0 Hypertensive heart disease with heart failure; G93.41 Metabolic encephalopathy; E22.2 Syndrome of inappropriate secretion of antidiuretic hormone; E03.9 Hypothyroidism, unspecified; F32.9 Major depressive disorder, single episode, unspecified; E43 Unspecified severe protein-calorie malnutrition; F03.90 Unspecified dementia, unspecified severity, without behavioral disturbance, psychotic disturbance, mood disturbance, and anxiety; D64.9 Anemia, unspecified; R13.10 Dysphagia, unspecified; Z79.82 Long term (current) use of aspirin; Z79.899 Other long term (current) drug therapy; F41.9 Anxiety disorder, unspecified; M20.41 Other hammer toe(s) (acquired), right foot; M20.42 Other hammer toe(s) (acquired), left foot; I50.9 Heart failure, unspecified; L89.616 Pressure-induced deep tissue damage of right heel; M62.562 Muscle wasting and atrophy, not elsewhere classified, left lower leg; M62.561 Muscle wasting and atrophy, not elsewhere classified, right lower leg; F09 Unspecified mental disorder due to known physiological condition
CPT/HCPCS: 36415; 71045-TC; 80048-TC; 80076-TC; 81000-TC; 83605-TC; 83735-TC; 83880; 83935-TC; 84100-TC; 84300-TC; 84443-TC; 84484-TC; 84550-TC; 85025-TC; 85730-TC; 86140-TC; 87040-TC; 87081-TC; 87086-TC; G0378; J0692; J1100; J1650; J2543; J3370; J7030; J7060; U0003

== ENCOUNTER 2020-06-23 14:10 | Emergency (ER) | payer OTHER ==
[~2020-06-23] VITALS: Ht 165.1 cm; Wt 63.5 kg
[~2020-06-23 14:10] MED LIST changes: -ALBU2.5V38 IH; +AMIN887L GT; -AMIO200T4 GT; +AMIO200T5 GT; -ASCO500T10 GT; +CALC-17 GT; -CALC-36 GT; -CEPH-569 PO; -CLOT15CR5 TP; +DOXY100T2 PO; -LEVO112T5 GT; -MUPI22OI7; -PANT40TA49 PO; -Prosource GT; -SENN-175 GT
--- NOTE | 2020-06-23 14:26 | NUR ---
bibpa FROM SNF TO TO ER 20. AAOX1.. NOT IN RESP DISTRESS. BROUGHT INFOR A DISLODGE GT. F/C WAS INPLACE UPON RECEIVING PT. NO ACTIVE BLEEDIN, STOMA IS PINK. GT WAS NOTED SIZE 20.
--- NOTE | 2020-06-23 14:30 | NUR ---
AT BEDSIDE FOR GT INSERTION.
[2020-06-23] MEDS ORDERED: DIATR MEGLU/DIATRIZOATE SODIUM 30 ML BOTTLE (GASTROGRAPHIN) ONE (14:42)
[2020-06-23] MEDS ORDERED: OMEP20CA15 GT (14:45)
[2020-06-23] MEDS ORDERED: LEVO112T7 GT (14:45)
[2020-06-23] MEDS ORDERED: DIATR MEGLU/DIATRIZOATE SODIUM 30 ML BOTTLE (GASTROGRAPHIN) PO ONE (15:00)
--- NOTE | 2020-06-23 15:29 | NUR ---
Pt is cleared to go back to her facility. GT is inplace. Pt is being transport [id number]. pt left on gurney with 2 ambulance staff. nad noted and stable for transport.
[2020-06-23 15:32] VITALS: BP 148/73
== END 2020-06-23 15:33 | disposition home or self-care (01) ==
LOC: ER 14:12
DX: K94.23 Gastrostomy malfunction (principal); F03.90 Unspecified dementia, unspecified severity, without behavioral disturbance, psychotic disturbance, mood disturbance, and anxiety; D64.9 Anemia, unspecified; E03.9 Hypothyroidism, unspecified; Z79.899 Other long term (current) drug therapy; Z79.82 Long term (current) use of aspirin
CPT/HCPCS: 43762; 74018; 99284; Q9963